=== PATIENT | male | born 1935 | race Caucasian/White ===

== ENCOUNTER 2017-05-29 08:54 | Inpatient (IN) | payer MEDICARE, OTHER ==
[~2017-05-29] VITALS: Ht 167.6 cm; Wt 105.2 kg
[~2017-05-29 08:54] MED LIST: ASPI-611 PO; ATOR10TA PO; DIGO250T77 PO; FURO40TA4 PO; HYDR-3972 PO; LEVO125T8 PO; LEVO750T21 PO; LINA5TAB4 PO; METO25TA6 PO; NITR0.4T48 SL; WARF-55 PO
[2017-05-29 09:54] LABS: BASOPHILS % (AUTO) 0.1 % (0-1); EOSINOPHILS # (AUTO) 0.2 X10'3 (0-0.9); EOSINOPHILS % (AUTO) 1.9 % (0-6); HEMOGLOBIN 13.6 g/dl (14.0-17.9); LYMPHOCYTES # (AUTO) 1.1 X10'3 (1.1-4.8); LYMPHOCYTES % (AUTO) 11.3 % (21-51); MEAN CORPUSCULAR HEMOGLOBIN 25.8 PG (27.0-31.0); MEAN CORPUSCULAR HGB CONC 32.4 % (33.0-36.5); MEAN CORPUSCULAR VOLUME 79.7 FL (78-98); MEAN PLATELET VOLUME 7.9 FL (7.4-10.4); MONOCYTES % (AUTO) 10.2 % (2-12); NEUTROPHILS # (AUTO) 7.3 X10'3 (1.8-7.7); NEUTROPHILS % (AUTO) 76.5 % (42-75); PLATELET COUNT 242 X10'3 (140-440); RED BLOOD COUNT 5.27 X10'6 (4.70-6.10); RED CELL DISTRIBUTION WIDTH 17.7 % (11.5-14.5); WHITE BLOOD COUNT 9.5 X10'3 (4.5-11.0)
[2017-05-29 10:08] LABS: INR 1.4 INR; PARTIAL THROMBOPLASTIN TIME 35 SECONDS (22-32); PROTHROMBIN TIME 14.5 SECONDS (9.0-12.0)
[2017-05-29 10:12] LABS: ALANINE AMINOTRANSFERASE 40 U/L (12-78); ALBUMIN 2.9 G/DL (3.4-5.0); ALBUMIN/GLOBULIN RATIO 0.6 (1.1-1.5); ALKALINE PHOSPHATASE 124 IU/L (46-116); ANION GAP 9 (8-16); ASPARTATE AMINO TRANSFERASE 34 U/L (10-37); BILIRUBIN,TOTAL 0.8 MG/DL (0.1-1.0); BLOOD UREA NITROGEN 20 MG/DL (7-18); BUN/CREATININE RATIO 14.1 (5.4-32.0); CALCIUM 8.2 MG/DL (8.5-10.1); CHLORIDE 102 MMOL/L (99-107); CREATININE 1.42 MG/DL (0.60-1.10); GLUCOSE 120 MG/DL (70-104); POTASSIUM 4.4 MMOL/L (3.5-5.1); SODIUM 136 MMOL/L (135-145); TOTAL CARBON DIOXIDE 25.4 MMOL/L (24-32); TOTAL PROTEIN 7.6 G/DL (6.4-8.2); eGFR 48 ML/MIN
[2017-05-29] MEDS ORDERED: levoFLOXACIN-Levaquin 750MG/D5 150 ML IV STA (10:47)
[2017-05-29] MEDS ORDERED: normal saline 1000ml 1,000 ML IV ONE (10:50)
[2017-05-29 11:06] LABS: ANISOCYTOSIS 2+; PLATELET ESTIMATE NORMAL
[2017-05-29] MEDS ORDERED: COU2.5T PO ×2 (11:18)
[2017-05-29] MEDS ORDERED: SYN0.088T PO (11:18)
[2017-05-29] MEDS ORDERED: SAXA5TAB PO (11:18)
[2017-05-29] MEDS ORDERED: COU5T PO (11:18)
[2017-05-29] MEDS ORDERED: magnesium hydroxide 30ml (MOM) UD suspension PO PRN (12:50)
[2017-05-29] MEDS ORDERED: mag hydrox/Alum hydrox/simeth 30ml oral suspension PO PRN (12:50)
[2017-05-29] MEDS ORDERED: ondansetron/PF 4mg/2ml inj IV PRN (12:50)
[2017-05-29] MEDS ORDERED: dextrose ORAL solution 15 GM/59 ML bottle PO PRN ×2 (12:50)
[2017-05-29] MEDS ORDERED: glucagon, human recombinant 1mg kit SUBCUT PRN (12:50)
[2017-05-29] MEDS ORDERED: dextrose 50%-water 50ml dispensing syringe IV PRN ×2 (12:50)
[2017-05-29] MEDS ORDERED: MESSAGE TO PHARMACY PO ONE (12:50)
[2017-05-29] MEDS ORDERED: guaiFENesin/DM 10ml UD oral syrup PO PRN ×3 (12:50→17:05)
[2017-05-29] MEDS ORDERED: HYDROcodone/acetaminophen 5mg/325mg tablet PO PRN (12:50)
[2017-05-29] MEDS ORDERED: insulin Lispro (HumaLOG) vial - multi-dose SQ SCH (12:50)
[2017-05-29] MEDS ORDERED: acetaminophen 325mg tablet PO PRN ×2 (12:50)
[2017-05-29] MEDS ORDERED: HYDROcodone/acetaminophen 10/325mg tab PO PRN (14:30)
[2017-05-29] MEDS ORDERED: guaiFENesin/DM oral syrup 5 ML CUP PO PRN ×2 (17:18)
[2017-05-29] MEDS ORDERED: metoprolol tartrate 25mg tablet PO SCH (20:00)
[2017-05-29] MEDS ORDERED: warfarin 5mg tablet PO ONE (21:00)
[2017-05-29] MEDS: insulin glargine (Lantus) pen - multi-dose SQ SCH (21:00)
[2017-05-29] MEDS: linagliptin 5mg tablet PO SCH (21:00)
[2017-05-29] MEDS ORDERED: temazepam 15mg capsule PO PRN (21:00)
[2017-05-29] MEDS: atorvastatin 10mg tablet PO SCH (22:45)
[2017-05-30 06:33] LABS: INR 1.3 INR; PROTHROMBIN TIME 13.7 SECONDS (9.0-12.0)
[2017-05-30 06:38] LABS: HEMOGLOBIN A1C 7.2 % (4.5-6.2)
[2017-05-30 06:59] LABS: ALBUMIN 2.5 G/DL (3.4-5.0); ANION GAP 8 (8-16); BLOOD UREA NITROGEN 20 MG/DL (7-18); BUN/CREATININE RATIO 15.5 (5.4-32.0); CALCIUM 7.8 MG/DL (8.5-10.1); CHLORIDE 104 MMOL/L (99-107); CREATININE 1.29 MG/DL (0.60-1.10); GLUCOSE 99 MG/DL (70-104); SODIUM 138 MMOL/L (135-145); TOTAL CARBON DIOXIDE 25.7 MMOL/L (24-32); eGFR 54 ML/MIN
[2017-05-30 07:00] LABS: POTASSIUM 4.4 MMOL/L (3.5-5.1)
[2017-05-30 07:08] LABS: BASOPHILS % (AUTO) 0.4 % (0-1); EOSINOPHILS # (AUTO) 0.3 X10'3 (0-0.9); EOSINOPHILS % (AUTO) 4.6 % (0-6); HEMATOCRIT 39.7 % (42.0-52.0); LYMPHOCYTES # (AUTO) 1.1 X10'3 (1.1-4.8); LYMPHOCYTES % (AUTO) 16.6 % (21-51); MEAN CORPUSCULAR HEMOGLOBIN 26.3 PG (27.0-31.0); MEAN CORPUSCULAR HGB CONC 32.7 % (33.0-36.5); MEAN CORPUSCULAR VOLUME 80.5 FL (78-98); MEAN PLATELET VOLUME 7.7 FL (7.4-10.4); MONOCYTES # (AUTO) 0.9 X10'3 (0-0.9); MONOCYTES % (AUTO) 13.1 % (2-12); NEUTROPHILS # (AUTO) 4.4 X10'3 (1.8-7.7); NEUTROPHILS % (AUTO) 65.3 % (42-75); PLATELET COUNT 218 X10'3 (140-440); RED BLOOD COUNT 4.94 X10'6 (4.70-6.10); RED CELL DISTRIBUTION WIDTH 17.9 % (11.5-14.5); WHITE BLOOD COUNT 6.7 X10'3 (4.5-11.0)
[2017-05-30 07:40] VITALS: BP 163/58
[2017-05-30] MEDS ORDERED: levoTHYROXINE 88mcg tablet PO SCH (08:00)
[2017-05-30] MEDS: furosemide 40mg tablet PO SCH (08:53)
[2017-05-30] MEDS: aspirin 81mg tablet.DR PO SCH (08:53)
[2017-05-30] MEDS: digoxin 250mcg (0.25mg) tablet PO SCH (08:55)
[2017-05-30] MEDS: levoFLOXACIN-Levaquin 500mg/D5 100 ML IV SCH (09:01)
[2017-05-30 11:33] VITALS: BP_SYST 157; BP_SYST 167; BP_SYST 168; BP_DIAS 63; BP_DIAS 65; BP_DIAS 83
[2017-05-30] MEDS ORDERED: metoprolol tartrate 12.5mg (1/2 tablet) PO ONE ×2 (11:35→11:50)
[2017-05-30 14:42] VITALS: BP 155/64
[2017-05-30 18:00] VITALS: BP 156/65
[2017-05-30] MEDS ORDERED: warfarin 5mg tablet PO ONE (21:00)
[2017-05-30] MEDS: insulin glargine (Lantus) pen - multi-dose SQ SCH (21:00)
[2017-05-30] MEDS: lactobacillus rhamnosus 10,000 MMU CELLS/CAPSULE PO SCH (21:33)
[2017-05-30] MEDS: pantoprazole 40 MG vial IV SCH (21:33)
[2017-05-30] MEDS: atorvastatin 10mg tablet PO SCH (21:33)
[2017-05-30] MEDS: metoprolol tartrate 12.5mg (1/2 tablet) PO SCH (21:33)
[2017-05-30] MEDS: linagliptin 5mg tablet PO SCH (21:33)
[2017-05-30 22:00] VITALS: BP 174/66
[2017-05-31 06:00] VITALS: BP 169/76
[2017-05-31 06:02] LABS: BASOPHILS % (AUTO) 0.4 % (0-1); EOSINOPHILS # (AUTO) 0.4 X10'3 (0-0.9); HEMATOCRIT 42.1 % (42.0-52.0); HEMOGLOBIN 13.7 g/dl (14.0-17.9); LYMPHOCYTES # (AUTO) 1.3 X10'3 (1.1-4.8); LYMPHOCYTES % (AUTO) 18.1 % (21-51); MEAN CORPUSCULAR HEMOGLOBIN 26.2 PG (27.0-31.0); MEAN CORPUSCULAR HGB CONC 32.5 % (33.0-36.5); MEAN CORPUSCULAR VOLUME 80.5 FL (78-98); MONOCYTES # (AUTO) 0.8 X10'3 (0-0.9); MONOCYTES % (AUTO) 11.4 % (2-12); NEUTROPHILS # (AUTO) 4.5 X10'3 (1.8-7.7); NEUTROPHILS % (AUTO) 64.1 % (42-75); PLATELET COUNT 258 X10'3 (140-440); RED BLOOD COUNT 5.22 X10'6 (4.70-6.10); RED CELL DISTRIBUTION WIDTH 17.3 % (11.5-14.5); WHITE BLOOD COUNT 7.1 X10'3 (4.5-11.0)
[2017-05-31 06:11] LABS: INR 1.7 INR; PROTHROMBIN TIME 16.8 SECONDS (9.0-12.0)
[2017-05-31 06:27] LABS: ALBUMIN 2.6 G/DL (3.4-5.0); ANION GAP 10 (8-16); BLOOD UREA NITROGEN 21 MG/DL (7-18); BUN/CREATININE RATIO 17.1 (5.4-32.0); CALCIUM 8.2 MG/DL (8.5-10.1); CHLORIDE 104 MMOL/L (99-107); CREATININE 1.23 MG/DL (0.60-1.10); GLUCOSE 95 MG/DL (70-104); SODIUM 142 MMOL/L (135-145); eGFR 57 ML/MIN
[2017-05-31] MEDS: lactobacillus rhamnosus 10,000 MMU CELLS/CAPSULE PO SCH ×2 (07:26→20:28)
[2017-05-31] MEDS: furosemide 40mg tablet PO SCH (07:27)
[2017-05-31] MEDS: digoxin 250mcg (0.25mg) tablet PO SCH (07:27)
[2017-05-31] MEDS: aspirin 81mg tablet.DR PO SCH (07:27)
[2017-05-31] MEDS: levoTHYROXINE 125mcg tablet PO SCH (07:27)
[2017-05-31] MEDS: metoprolol tartrate 12.5mg (1/2 tablet) PO SCH ×2 (07:28→20:28)
[2017-05-31] MEDS: pantoprazole 40 MG vial IV SCH (07:28)
[2017-05-31] MEDS: levoFLOXACIN-Levaquin 500mg/D5 100 ML IV SCH (07:28)
[2017-05-31 10:00] VITALS: BP 93/97
[2017-05-31 17:00] VITALS: BP_SYST 147; BP_SYST 152; BP_SYST 157; BP_DIAS 54; BP_DIAS 63; BP_DIAS 70
[2017-05-31 18:00] VITALS: BP 147/54
[2017-05-31 20:00] VITALS: BP_SYST 144; BP_SYST 149; BP_SYST 156; BP_DIAS 59; BP_DIAS 60; BP_DIAS 68
[2017-05-31] MEDS: atorvastatin 10mg tablet PO SCH (20:29)
[2017-05-31] MEDS: linagliptin 5mg tablet PO SCH (20:29)
[2017-05-31] MEDS: insulin glargine (Lantus) pen - multi-dose SQ SCH (20:30)
[2017-05-31] MEDS ORDERED: warfarin 3mg tablet PO ONE (21:00)
[2017-05-31 22:00] VITALS: BP 149/59
[2017-06-01 05:25] LABS: BASOPHILS % (AUTO) 0.5 % (0-1); EOSINOPHILS # (AUTO) 0.3 X10'3 (0-0.9); EOSINOPHILS % (AUTO) 4.1 % (0-6); HEMATOCRIT 41.9 % (42.0-52.0); HEMOGLOBIN 13.7 g/dl (14.0-17.9); LYMPHOCYTES # (AUTO) 1.3 X10'3 (1.1-4.8); LYMPHOCYTES % (AUTO) 16.7 % (21-51); MEAN CORPUSCULAR HGB CONC 32.7 % (33.0-36.5); MEAN CORPUSCULAR VOLUME 79.6 FL (78-98); MEAN PLATELET VOLUME 7.6 FL (7.4-10.4); MONOCYTES # (AUTO) 0.9 X10'3 (0-0.9); MONOCYTES % (AUTO) 11.8 % (2-12); NEUTROPHILS # (AUTO) 5.2 X10'3 (1.8-7.7); NEUTROPHILS % (AUTO) 66.9 % (42-75); PLATELET COUNT 278 X10'3 (140-440); RED BLOOD COUNT 5.27 X10'6 (4.70-6.10); WHITE BLOOD COUNT 7.8 X10'3 (4.5-11.0)
[2017-06-01 05:44] LABS: INR 2.6 INR
[2017-06-01 05:52] LABS: ALBUMIN 2.6 G/DL (3.4-5.0); ANION GAP 9 (8-16); BLOOD UREA NITROGEN 26 MG/DL (7-18); CALCIUM 8.3 MG/DL (8.5-10.1); CHLORIDE 104 MMOL/L (99-107); CREATININE 1.37 MG/DL (0.60-1.10); GLUCOSE 104 MG/DL (70-104); POTASSIUM 4.1 MMOL/L (3.5-5.1); SODIUM 140 MMOL/L (135-145); TOTAL CARBON DIOXIDE 27.2 MMOL/L (24-32); eGFR 50 ML/MIN
[2017-06-01 06:00] VITALS: BP 164/71
[2017-06-01] MEDS: lactobacillus rhamnosus 10,000 MMU CELLS/CAPSULE PO SCH ×2 (07:12→21:12)
[2017-06-01] MEDS: pantoprazole 40mg Tablet.DR PO SCH (07:12)
[2017-06-01] MEDS: levoTHYROXINE 125mcg tablet PO SCH (07:13)
[2017-06-01] MEDS: aspirin 81mg tablet.DR PO SCH (07:13)
[2017-06-01] MEDS: digoxin 250mcg (0.25mg) tablet PO SCH (07:14)
[2017-06-01] MEDS: metoprolol tartrate 12.5mg (1/2 tablet) PO SCH ×2 (07:15→21:12)
[2017-06-01] MEDS: furosemide 40mg tablet PO SCH (07:15)
[2017-06-01 08:00] VITALS: BP_SYST 136; BP_SYST 146; BP_SYST 161; BP_DIAS 62; BP_DIAS 69; BP_DIAS 85
[2017-06-01 10:00] VITALS: BP 114/49
[2017-06-01] MEDS ORDERED: levoFLOXACIN 500mg tablet PO SCH (11:00)
[2017-06-01 18:00] VITALS: BP 146/53
[2017-06-01 20:00] VITALS: BP_SYST 131; BP_SYST 153; BP_SYST 171; BP_DIAS 131; BP_DIAS 62; BP_DIAS 67
[2017-06-01] MEDS: insulin glargine (Lantus) pen - multi-dose SQ SCH (21:00)
[2017-06-01] MEDS: atorvastatin 10mg tablet PO SCH (21:12)
[2017-06-01] MEDS: linagliptin 5mg tablet PO SCH (21:12)
[2017-06-01 22:00] VITALS: BP 153/67
[2017-06-02 06:00] VITALS: BP 162/63
[2017-06-02 06:24] LABS: ALBUMIN 2.8 G/DL (3.4-5.0); ANION GAP 7 (8-16); BLOOD UREA NITROGEN 23 MG/DL (7-18); BUN/CREATININE RATIO 16.9 (5.4-32.0); CHLORIDE 103 MMOL/L (99-107); CREATININE 1.36 MG/DL (0.60-1.10); GLUCOSE 99 MG/DL (70-104); SODIUM 140 MMOL/L (135-145); TOTAL CARBON DIOXIDE 29.9 MMOL/L (24-32); eGFR 51 ML/MIN
[2017-06-02 06:25] LABS: BASOPHILS % (AUTO) 0.6 % (0-1); EOSINOPHILS # (AUTO) 0.3 X10'3 (0-0.9); EOSINOPHILS % (AUTO) 3.5 % (0-6); HEMATOCRIT 44.6 % (42.0-52.0); HEMOGLOBIN 14.2 g/dl (14.0-17.9); LYMPHOCYTES # (AUTO) 1.3 X10'3 (1.1-4.8); LYMPHOCYTES % (AUTO) 17.1 % (21-51); MEAN CORPUSCULAR HEMOGLOBIN 25.4 PG (27.0-31.0); MEAN CORPUSCULAR HGB CONC 31.9 % (33.0-36.5); MEAN CORPUSCULAR VOLUME 79.8 FL (78-98); MEAN PLATELET VOLUME 7.9 FL (7.4-10.4); MONOCYTES # (AUTO) 0.8 X10'3 (0-0.9); MONOCYTES % (AUTO) 10.8 % (2-12); NEUTROPHILS # (AUTO) 5.2 X10'3 (1.8-7.7); PLATELET COUNT 348 X10'3 (140-440); RED BLOOD COUNT 5.59 X10'6 (4.70-6.10); RED CELL DISTRIBUTION WIDTH 17.1 % (11.5-14.5); WHITE BLOOD COUNT 7.7 X10'3 (4.5-11.0)
[2017-06-02 06:29] LABS: INR 2.9 INR; PROTHROMBIN TIME 28.6 SECONDS (9.0-12.0)
[2017-06-02] MEDS: furosemide 40mg tablet PO SCH (07:45)
[2017-06-02] MEDS: lactobacillus rhamnosus 10,000 MMU CELLS/CAPSULE PO SCH (07:45)
[2017-06-02] MEDS: metoprolol tartrate 12.5mg (1/2 tablet) PO SCH (07:45)
[2017-06-02] MEDS: digoxin 250mcg (0.25mg) tablet PO SCH (07:45)
[2017-06-02] MEDS: aspirin 81mg tablet.DR PO SCH (07:45)
[2017-06-02] MEDS: pantoprazole 40mg Tablet.DR PO SCH (07:46)
[2017-06-02] MEDS: levoTHYROXINE 125mcg tablet PO SCH (07:46)
[2017-06-02] MEDS ORDERED: LEVO500T2 PO (10:44)
== END 2017-06-02 12:00 | disposition home or self-care (01) | DRG 194 ==
LOC: ER 08:55 → ED HOLD 12:48 → ORTHO 4S 05-30 07:40
PROVIDERS: ADMIT Family Medicine; ATTEND Family Medicine
DX: J18.9 Pneumonia, unspecified organism (principal); E44.1 Mild protein-calorie malnutrition; E11.22 Type 2 diabetes mellitus with diabetic chronic kidney disease; E11.51 Type 2 diabetes mellitus with diabetic peripheral angiopathy without gangrene; I48.2 Chronic atrial fibrillation; N18.9 Chronic kidney disease, unspecified; M19.90 Unspecified osteoarthritis, unspecified site; E03.9 Hypothyroidism, unspecified; E78.5 Hyperlipidemia, unspecified; I25.10 Atherosclerotic heart disease of native coronary artery without angina pectoris; Z96.652 Presence of left artificial knee joint; Z95.1 Presence of aortocoronary bypass graft; Z79.01 Long term (current) use of anticoagulants; Z79.82 Long term (current) use of aspirin; Z79.899 Other long term (current) drug therapy; Z82.49 Family history of ischemic heart disease and other diseases of the circulatory system; Z83.3 Family history of diabetes mellitus; Z68.37 Body mass index [BMI] 37.0-37.9, adult
CPT/HCPCS: 36415; 71045; 80048; 80053; 82948; 83036; 83605; 84443; 84484; 85025; 85610; 85730; 87040; 87070; 94668; 94760; 96365; 97116; 97161; 97530; 99285; C9113; J1815; J1956; J7030

== ENCOUNTER 2017-12-11 07:29 | Day surgery (SDC) | payer MEDICARE, OTHER ==
[~2017-12-11] VITALS: Ht 165.1 cm; Wt 111.6 kg
[~2017-12-11 07:29] MED LIST changes: +COU2.5T PO; +COU5T PO; -FURO40TA4 PO; -HYDR-3972 PO; -LEVO125T8 PO; -LEVO750T21 PO; +SAXA5TAB PO; +SYN0.088T PO; -WARF-55 PO
[2017-12-11] MEDS ORDERED: LIDOcaine 1% (10mg/ml)w/preservative injection 20ml MDV SQ ONE ×2 (08:00→09:00)
[2017-12-11] MEDS ORDERED: FURO-150 PO (08:06)
[2017-12-11] MEDS ORDERED: NITR0.4T51 SL (08:06)
[2017-12-11] MEDS ORDERED: HYDR-4353 PO (08:06)
[2017-12-11] MEDS ORDERED: LISI10TA4 PO (08:06)
[2017-12-11 08:08] VITALS: BP 177/78
[2017-12-11 08:48] VITALS: BP 181/65
[2017-12-11 08:53] VITALS: BP 181/65
[2017-12-11 09:08] VITALS: BP 172/60
[2017-12-11 09:19] VITALS: BP 157/73
[2017-12-11 12:27] LABS: LDH,BODY FLUID 116 U/L; TOTAL PROTEIN,BODY FLUID 3.3 G/DL
[2017-12-11 13:19] LABS: EOSINOPHILS,BODY FLUID 1 %; LYMPHOCYTES,BODY FLUID 94 %; MONOCYTES,BODY FLUID 1 %; NEUTROPHILS,BODY FLUID 4 %
[2017-12-11 13:20] LABS: BFAPPEAR CLOUDY
[2017-12-11 13:21] LABS: BF RBC COUNT 35500 /CU MM; BF WBC COUNT 1050 /CU MM (0-1000); BFCOLOR AMBER; BFVOLUME 1300 ML
== END 2017-12-11 09:40 | disposition home or self-care (01) ==
LOC: SSTAY O 07:29
PROVIDERS: ATTEND Internal Medicine Pulmonary Disease
DX: J90 Pleural effusion, not elsewhere classified (principal); I25.810 Atherosclerosis of coronary artery bypass graft(s) without angina pectoris; I48.2 Chronic atrial fibrillation; I50.9 Heart failure, unspecified; E66.3 Overweight; E11.42 Type 2 diabetes mellitus with diabetic polyneuropathy; E78.5 Hyperlipidemia, unspecified; N40.0 Benign prostatic hyperplasia without lower urinary tract symptoms; M19.90 Unspecified osteoarthritis, unspecified site; E11.22 Type 2 diabetes mellitus with diabetic chronic kidney disease; N18.9 Chronic kidney disease, unspecified; Z86.79 Personal history of other diseases of the circulatory system; Z95.1 Presence of aortocoronary bypass graft; Z87.891 Personal history of nicotine dependence; Z87.01 Personal history of pneumonia (recurrent); Z79.01 Long term (current) use of anticoagulants; Z68.41 Body mass index [BMI] 40.0-44.9, adult; Z96.652 Presence of left artificial knee joint; Z90.49 Acquired absence of other specified parts of digestive tract; Z79.82 Long term (current) use of aspirin; Z79.891 Long term (current) use of opiate analgesic; Z79.899 Other long term (current) drug therapy; Z98.890 Other specified postprocedural states; Z83.6 Family history of other diseases of the respiratory system; Z83.3 Family history of diabetes mellitus; Z82.49 Family history of ischemic heart disease and other diseases of the circulatory system
CPT/HCPCS: 32555; 71045; 83615; 84157; 87070; 88108; 88305; 88341; 88342; 89051

== ENCOUNTER 2018-01-24 12:57 | Outpatient (CLI) | payer MEDICARE, OTHER ==
[~2018-01-24 12:57] MED LIST changes: -COU2.5T PO; +FURO-150 PO; +HYDR-4353 PO; +LISI10TA4 PO; +NITR0.4T51 SL; -SAXA5TAB PO
== END 2018-01-24 23:59 | disposition home or self-care (01) ==
LOC: CARD DIAG 12:57
PROVIDERS: ATTEND Internal Medicine Cardiovascular Disease
DX: I08.3 Combined rheumatic disorders of mitral, aortic and tricuspid valves (principal); R06.02 Shortness of breath; I48.91 Unspecified atrial fibrillation; R06.00 Dyspnea, unspecified; I10 Essential (primary) hypertension; E11.9 Type 2 diabetes mellitus without complications; Z79.82 Long term (current) use of aspirin; Z79.899 Other long term (current) drug therapy; Z87.891 Personal history of nicotine dependence
CPT/HCPCS: 93306

== ENCOUNTER 2018-01-27 10:47 | Inpatient (IN) | payer MEDICARE, OTHER ==
[~2018-01-27] VITALS: Ht 167.6 cm; Wt 110.0 kg
[2018-01-27] MEDS ORDERED: SAXA5TAB PO (12:33)
[2018-01-27] MEDS ORDERED: LEVO125T PO (12:37)
[2018-01-27 12:48] VITALS: BP 146/76
[2018-01-27] MEDS ORDERED: FURO-149 PO (13:27)
[2018-01-27] MEDS ORDERED: WARF-55 PO (13:32)
[2018-01-27 13:43] LABS: BASOPHILS # (AUTO) 0.1 X10'3 (0-0.2); BASOPHILS % (AUTO) 0.7 % (0-1); EOSINOPHILS # (AUTO) 0.3 X10'3 (0-0.9); EOSINOPHILS % (AUTO) 3.1 % (0-6); HEMATOCRIT 40.2 % (42.0-52.0); HEMOGLOBIN 12.6 g/dl (14.0-17.9); LYMPHOCYTES # (AUTO) 1.5 X10'3 (1.1-4.8); LYMPHOCYTES % (AUTO) 16.5 % (21-51); MEAN CORPUSCULAR HEMOGLOBIN 25.7 PG (27.0-31.0); MEAN CORPUSCULAR HGB CONC 31.2 % (33.0-36.5); MEAN CORPUSCULAR VOLUME 82.3 FL (78-98); MEAN PLATELET VOLUME 8.1 FL (7.4-10.4); MONOCYTES # (AUTO) 0.8 X10'3 (0-0.9); MONOCYTES % (AUTO) 8.4 % (2-12); NEUTROPHILS # (AUTO) 6.7 X10'3 (1.8-7.7); NEUTROPHILS % (AUTO) 71.3 % (42-75); PLATELET COUNT 309 X10'3 (140-440); RED BLOOD COUNT 4.89 X10'6 (4.70-6.10); RED CELL DISTRIBUTION WIDTH 17.3 % (11.5-14.5); WHITE BLOOD COUNT 9.4 X10'3 (4.5-11.0)
[2018-01-27 13:53] LABS: ALBUMIN 2.9 G/DL (3.4-5.0); ANION GAP 8 (8-16); BLOOD UREA NITROGEN 23 MG/DL (7-18); BUN/CREATININE RATIO 15.1 (5.4-32.0); CALCIUM 8.5 MG/DL (8.5-10.1); CHLORIDE 102 MMOL/L (99-107); CREATININE 1.52 MG/DL (0.60-1.10); GLUCOSE 142 MG/DL (70-104); POTASSIUM 4.2 MMOL/L (3.5-5.1); SODIUM 138 MMOL/L (135-145); TOTAL CARBON DIOXIDE 27.8 MMOL/L (24-32); eGFR 44 ML/MIN
[2018-01-27 13:54] LABS: INR 2.4 INR; PARTIAL THROMBOPLASTIN TIME 41 SECONDS (22-32); PROTHROMBIN TIME 23.7 SECONDS (9.0-12.0)
[2018-01-27] MEDS ORDERED: dextrose 50%-water 50ml dispensing syringe IV PRN ×2 (17:45)
[2018-01-27] MEDS ORDERED: dextrose ORAL solution 15 GM/59 ML bottle PO PRN ×2 (17:45)
[2018-01-27] MEDS ORDERED: MESSAGE TO PHARMACY PO ONE (17:45)
[2018-01-27] MEDS ORDERED: insulin Lispro (HumaLOG) vial - multi-dose SQ SCH (17:45)
[2018-01-27] MEDS ORDERED: glucagon, human recombinant 1mg kit SUBCUT PRN (17:45)
[2018-01-27 17:50] LABS: CLARITY,URINE CLEAR (Clear); COLOR,URINE STRAW (Yellow); GLUCOSE, URINE NEGATIVE (Neg); KETONES,URINE NEGATIVE (Neg); LEUKOCYTE ESTERASE ,URINE TRACE (Neg); NITRITES, URINE NEGATIVE (Neg); OCCULT BLOOD,URINE SMALL (Neg); PROTEIN,URINE 30 mg/dl (Neg); UROBILINOGEN,URINE 0.2 E.U/dL (0.2-1.0)
[2018-01-27 17:54] LABS: UA COLLECTION TYPE NON-SPECIFIED
[2018-01-27 18:04] LABS: MUCUS STRANDS NONE SEEN /LPF (Neg); SQUAMOUS EPITHELIAL CELL,UR FEW /LPF (FEW)
[2018-01-27 18:05] LABS: BACTERIA,URINE 1+ /HPF (Neg); WBC,URINE 0-4 /HPF (0-4)
[2018-01-27 18:16] LABS: HEMOGLOBIN A1C 8.3 % (4.5-6.2)
[2018-01-27] MEDS ORDERED: nitroGLYCERIN 0.4mg SUBLingual tab SL PRN (18:20)
[2018-01-27 18:40] VITALS: BP 174/61
[2018-01-27] MEDS: atorvastatin 10mg tablet PO SCH (20:18)
[2018-01-27] MEDS: metoprolol tartrate 12.5mg (1/2 tablet) PO SCH (20:18)
[2018-01-27] MEDS: insulin glargine (Lantus) pen - multi-dose SQ SCH (21:00)
[2018-01-27 23:00] VITALS: BP 143/49
[2018-01-28] VITALS (15 sets, daily range): BP systolic 142–187; BP diastolic 43–75
[2018-01-28] MEDS: aspirin 81mg tablet.DR PO SCH (07:21)
[2018-01-28] MEDS: metoprolol tartrate 12.5mg (1/2 tablet) PO SCH ×2 (07:22→20:23)
[2018-01-28] MEDS: digoxin 250mcg (0.25mg) tablet PO SCH (07:22)
[2018-01-28] MEDS: furosemide 40mg tablet PO SCH (07:50)
[2018-01-28] MEDS: levoTHYROXINE 125mcg tablet PO SCH (07:50)
[2018-01-28] MEDS: linagliptin 5mg tablet PO SCH (07:51)
[2018-01-28 08:48] LABS: INR 2.1 INR; PROTHROMBIN TIME 20.3 SECONDS (9.0-12.0)
[2018-01-28] MEDS ORDERED: LIDOcaine 1%/PF 5ML 10 MG/ML VIAL ONE (11:34)
[2018-01-28] MEDS ORDERED: NORMAL SALINE IV ONE (11:40)
[2018-01-28] MEDS ORDERED: ALTEPLASE IV ONE (11:40)
[2018-01-28 11:49] LABS: INR 1.6 INR; PROTHROMBIN TIME 16.2 SECONDS (9.0-12.0)
[2018-01-28 13:03] LABS: GLUCOSE,BODY FLUID 134 MG/DL; LDH,BODY FLUID 127 U/L
[2018-01-28 13:37] LABS: BF RBC COUNT 5100 /CU MM; BF WBC COUNT 955 /CU MM (0-1000); BFAPPEAR CLOUDY; BFCOLOR AMBER; BFVOLUME 60 ML; LYMPHOCYTES,BODY FLUID 91 %; NEUTROPHILS,BODY FLUID 3 %
[2018-01-28 13:38] LABS: MONOCYTES,BODY FLUID 6 %
[2018-01-28] MEDS: atorvastatin 10mg tablet PO SCH (20:23)
[2018-01-28] MEDS: insulin glargine (Lantus) pen - multi-dose SQ SCH (21:00)
[2018-01-28] MEDS ORDERED: HYDROcodone/acetaminophen 10/325mg tab PO PRN (21:00)
[2018-01-29 04:00] VITALS: BP 150/50
[2018-01-29 07:04] VITALS: BP 156/49
[2018-01-29] MEDS: digoxin 250mcg (0.25mg) tablet PO SCH (08:00)
[2018-01-29] MEDS: levoTHYROXINE 125mcg tablet PO SCH (09:12)
[2018-01-29] MEDS: aspirin 81mg tablet.DR PO SCH (09:12)
[2018-01-29] MEDS: linagliptin 5mg tablet PO SCH (09:13)
[2018-01-29] MEDS: metoprolol tartrate 12.5mg (1/2 tablet) PO SCH ×2 (09:13→20:20)
[2018-01-29] MEDS: furosemide 40mg tablet PO SCH (09:17)
[2018-01-29] MEDS ORDERED: TPA CATHFLO ICATH ONE (11:00)
[2018-01-29] MEDS ORDERED: NORMAL SALINE ICATH ONE (11:00)
[2018-01-29] MEDS ORDERED: FLUSH 10 MG ICATH ONE (11:00)
[2018-01-29 11:40] VITALS: BP 134/49
[2018-01-29 20:02] VITALS: BP_SYST 137; BP_DIAS 38; BP_DIAS 47
[2018-01-29] MEDS: atorvastatin 10mg tablet PO SCH (20:20)
[2018-01-29] MEDS: insulin glargine (Lantus) pen - multi-dose SQ SCH (21:00)
[2018-01-29 23:45] VITALS: BP 145/52
[2018-01-30 07:12] VITALS: BP 102/64
[2018-01-30 08:00] VITALS: BP 110/47
[2018-01-30] MEDS: levoTHYROXINE 125mcg tablet PO SCH (08:13)
[2018-01-30] MEDS: metoprolol tartrate 12.5mg (1/2 tablet) PO SCH ×2 (08:14→20:37)
[2018-01-30] MEDS: linagliptin 5mg tablet PO SCH (08:14)
[2018-01-30] MEDS: furosemide 40mg tablet PO SCH (08:15)
[2018-01-30] MEDS: aspirin 81mg tablet.DR PO SCH (08:15)
[2018-01-30] MEDS: digoxin 250mcg (0.25mg) tablet PO SCH (08:16)
[2018-01-30 11:00] VITALS: BP 135/53
[2018-01-30 11:58] VITALS: BP 121/58
[2018-01-30] MEDS ORDERED: cefazolin/dext.iso 2gm/50ml 50 ML IV ONE (17:35)
[2018-01-30 20:00] VITALS: BP 146/73
[2018-01-30] MEDS: atorvastatin 10mg tablet PO SCH (20:36)
[2018-01-30] MEDS: insulin glargine (Lantus) pen - multi-dose SQ SCH (20:42)
[2018-01-31] VITALS: BP 162/56
[2018-01-31 05:36] VITALS: BP 158/56
[2018-01-31 06:02] LABS: BASOPHILS # (AUTO) 0.1 X10'3 (0-0.2); BASOPHILS % (AUTO) 0.5 % (0-1); EOSINOPHILS # (AUTO) 0.6 X10'3 (0-0.9); EOSINOPHILS % (AUTO) 5.5 % (0-6); LYMPHOCYTES # (AUTO) 1.6 X10'3 (1.1-4.8); LYMPHOCYTES % (AUTO) 14.2 % (21-51); MEAN CORPUSCULAR HGB CONC 31.4 % (33.0-36.5); MEAN CORPUSCULAR VOLUME 82.9 FL (78-98); MEAN PLATELET VOLUME 8.4 FL (7.4-10.4); MONOCYTES % (AUTO) 9.3 % (2-12); NEUTROPHILS # (AUTO) 7.8 X10'3 (1.8-7.7); NEUTROPHILS % (AUTO) 70.5 % (42-75); PRE OP HEMATOCRIT 44.2 % (42.0-52.0); PRE OP HEMOGLOBIN 13.9 g/dL (14.0-17.9); PRE OP PLATELET COUNT 332 X10'3 (140-440); RED BLOOD COUNT 5.34 X10'6 (4.70-6.10); RED CELL DISTRIBUTION WIDTH 17.3 % (11.5-14.5)
[2018-01-31 06:16] LABS: PRE OP INR 1.2 INR; PRE OP PROTIME 11.7 SECONDS (9.0-12.0)
[2018-01-31 06:53] LABS: ALBUMIN 2.8 G/DL (3.4-5.0); ALBUMIN/GLOBULIN RATIO 0.6 (1.1-1.5); ALKALINE PHOSPHATASE 113 IU/L (46-116); BLOOD UREA NITROGEN 33 MG/DL (7-18); BUN/CREATININE RATIO 19.8 (5.4-32.0); CALCIUM 8.4 MG/DL (8.5-10.1); CHLORIDE 101 MMOL/L (99-107); CREATININE 1.67 MG/DL (0.60-1.10); PRE OP ALT 28 U/L (30-65); PRE OP ANION GAP 9 (8-16); PRE OP AST 20 U/L (10-37); PRE OP GLUCOSE 119 MG/DL (70-104); PRE OP POTASSIUM 3.8 MMOL/L (3.4-5.1); PRE OP SODIUM 138 MMOL/L (135-145); TOTAL CARBON DIOXIDE 28.2 MMOL/L (24-32); TOTAL PROTEIN 7.5 G/DL (6.4-8.2); eGFR 40 ML/MIN
[2018-01-31] MEDS: furosemide 40mg tablet PO SCH (07:45)
[2018-01-31] MEDS: digoxin 250mcg (0.25mg) tablet PO SCH (07:45)
[2018-01-31] MEDS: levoTHYROXINE 125mcg tablet PO SCH (07:45)
[2018-01-31] MEDS: metoprolol tartrate 12.5mg (1/2 tablet) PO SCH ×2 (07:45→20:38)
[2018-01-31] MEDS: linagliptin 5mg tablet PO SCH (07:45)
[2018-01-31 08:00] VITALS: BP 142/58
[2018-01-31] MEDS: aspirin 81mg tablet.DR PO SCH (08:09)
[2018-01-31 10:28] VITALS: BP 142/58
[2018-01-31 12:00] VITALS: BP 140/49
[2018-01-31 19:00] VITALS: BP 139/42
[2018-01-31] MEDS: insulin glargine (Lantus) pen - multi-dose SQ SCH (20:38)
[2018-01-31] MEDS: atorvastatin 10mg tablet PO SCH (20:38)
[2018-02-01] VITALS (17 sets, daily range): BP systolic 95–184; BP diastolic 42–76
[2018-02-01 05:07] LABS: BASOPHILS # (AUTO) 0.1 X10'3 (0-0.2); BASOPHILS % (AUTO) 0.9 % (0-1); EOSINOPHILS # (AUTO) 0.6 X10'3 (0-0.9); EOSINOPHILS % (AUTO) 6.5 % (0-6); HEMATOCRIT 45.6 % (42.0-52.0); HEMOGLOBIN 14.4 g/dl (14.0-17.9); LYMPHOCYTES # (AUTO) 1.4 X10'3 (1.1-4.8); LYMPHOCYTES % (AUTO) 14.9 % (21-51); MEAN CORPUSCULAR HEMOGLOBIN 26.1 PG (27.0-31.0); MEAN CORPUSCULAR HGB CONC 31.6 % (33.0-36.5); MEAN CORPUSCULAR VOLUME 82.6 FL (78-98); MEAN PLATELET VOLUME 8.4 FL (7.4-10.4); MONOCYTES # (AUTO) 0.9 X10'3 (0-0.9); MONOCYTES % (AUTO) 9.4 % (2-12); NEUTROPHILS # (AUTO) 6.5 X10'3 (1.8-7.7); NEUTROPHILS % (AUTO) 68.3 % (42-75); PLATELET COUNT 350 X10'3 (140-440); RED BLOOD COUNT 5.51 X10'6 (4.70-6.10); RED CELL DISTRIBUTION WIDTH 16.6 % (11.5-14.5); WHITE BLOOD COUNT 9.6 X10'3 (4.5-11.0)
[2018-02-01 05:21] LABS: INR 1.2 INR; PARTIAL THROMBOPLASTIN TIME 32 SECONDS (22-32); PROTHROMBIN TIME 11.6 SECONDS (9.0-12.0)
[2018-02-01 05:40] LABS: ALANINE AMINOTRANSFERASE 25 U/L (12-78); ALBUMIN 2.9 G/DL (3.4-5.0); ALBUMIN/GLOBULIN RATIO 0.6 (1.1-1.5); ALKALINE PHOSPHATASE 134 IU/L (46-116); ANION GAP 10 (8-16); ASPARTATE AMINO TRANSFERASE 26 U/L (10-37); BILIRUBIN,TOTAL 0.9 MG/DL (0.1-1.0); BLOOD UREA NITROGEN 35 MG/DL (7-18); BUN/CREATININE RATIO 22.6 (5.4-32.0); CALCIUM 8.8 MG/DL (8.5-10.1); CHLORIDE 101 MMOL/L (99-107); CREATININE 1.55 MG/DL (0.60-1.10); GLUCOSE 117 MG/DL (70-104); POTASSIUM 4.1 MMOL/L (3.5-5.1); SODIUM 138 MMOL/L (135-145); TOTAL CARBON DIOXIDE 27.5 MMOL/L (24-32); TOTAL PROTEIN 7.7 G/DL (6.4-8.2); eGFR 43 ML/MIN
[2018-02-01] MEDS: furosemide 40mg tablet PO SCH (07:27)
[2018-02-01] MEDS: digoxin 250mcg (0.25mg) tablet PO SCH (07:27)
[2018-02-01] MEDS: levoTHYROXINE 125mcg tablet PO SCH (07:27)
[2018-02-01] MEDS: metoprolol tartrate 12.5mg (1/2 tablet) PO SCH ×2 (07:27→20:00)
[2018-02-01] MEDS: linagliptin 5mg tablet PO SCH (07:27)
[2018-02-01] MEDS: aspirin 81mg tablet.DR PO SCH (07:28)
[2018-02-01] MEDS ORDERED: fentaNYL /PF 50mcg/ml 5ml ampule ONE (08:57)
[2018-02-01] MEDS ORDERED: rocuronium 10mg/ml inj IV ONE ×2 (09:10→10:45)
[2018-02-01] MEDS ORDERED: sevoflurane 250ml liquid IH ONE (09:10)
[2018-02-01] MEDS ORDERED: ePHEDrine 50MG/ML INJ. ONE (09:10)
[2018-02-01] MEDS ORDERED: midazolam 2 mg/2 ml injection ONE (09:14)
[2018-02-01] MEDS ORDERED: LIDOcaine 2% (20mg/ml) 5ml vial ONE (10:45)
[2018-02-01] MEDS ORDERED: propofol inj 20 ML IV ONE (10:45)
[2018-02-01] MEDS ORDERED: morphine 10mg/ml inj. ONE (10:45)
[2018-02-01] MEDS ORDERED: FENTANYL-0.9 % NACL/PF 100 ML IV PRN (11:21)
[2018-02-01] MEDS ORDERED: labetalol 5mg/ml 20ml inj. IV ONE (11:39)
[2018-02-01] MEDS: midazolam 100mg in NS 100ml 100 ML IV PRN (12:13)
[2018-02-01] MEDS ORDERED: naloxone 0.4 mg/ml inj IV PRN (12:15)
[2018-02-01] MEDS ORDERED: albuterol 2.5 MG/3 ML nebule NEB PRN (12:15)
[2018-02-01] MEDS ORDERED: CADD PCA waste documentation MC PRN (12:15)
[2018-02-01] MEDS ORDERED: metoclopramide 5 mg/ml inj IV PRN (12:15)
[2018-02-01] MEDS ORDERED: HYDROcodone/acetaminophen 10/325mg tab PO PRN ×2 (12:15)
[2018-02-01] MEDS ORDERED: morphine 4 MG/ML inj SYRINge IV PRN ×2 (12:15)
[2018-02-01] MEDS ORDERED: ondansetron/PF 4mg/2ml inj IV PRN (12:15)
[2018-02-01 14:56] LABS: ABG HCO3 25.6 mmol/L (22.0-26.0); ABG OXYGEN SATURATION 99.2 % (95-98); ABG PCO2 (T) 39.6 mmHg (35.0-48.0); ABG PH (T) 7.425 (7.350-7.450); ABG PO2 (T) 388.8 mmHg (83-108); FCOHb 0.3 % (0.5-1.5); FMetHb 0.1 % (0.3-1.12); FO2Hb 98.8 % (94-100); MINUTE VOLUME 12 L/min; PATIENT TEMPERATURE 36.5; PEEP 5 cm H2O; RESPIRATORY RATE 16 b/min; RESPIRATORY RATE (OBSERVED) 28 b/min; TIDAL VOLUME 700 mL; TOTAL HEMOGLOBIN 14.5 G/dl (14.0-18.0)
[2018-02-01] MEDS ORDERED: nitroGLYCERIN-Tridil 50MG/D5W 250 ML IV PRN (15:10)
[2018-02-01] MEDS: ceFAZolin inj. 1,000 MG in dextrose 5%-water 50ml 50 ML IV SCH (16:20)
[2018-02-01] MEDS: insulin glargine (Lantus) pen - multi-dose SQ SCH (20:35)
[2018-02-01] MEDS: atorvastatin 10mg tablet PO SCH (20:35)
[2018-02-01] MEDS: sodium chloride 0.45% 1,000 ML IV SCH (20:35)
[2018-02-01] MEDS ORDERED: acetaminophen 120MG suppository, rectal RC PRN (20:45)
[2018-02-01] MEDS: acetaminophen 650mg rectal suppository RC PRN (21:41)
[2018-02-02] VITALS (23 sets, daily range): BP systolic 94–158; BP diastolic 43–86
[2018-02-02] MEDS: ceFAZolin inj. 1,000 MG in dextrose 5%-water 50ml 50 ML IV SCH (00:04)
[2018-02-02 02:26] LABS: ABG BASE EXCESS 1.4 mmol/L (-2.0-3.0); ABG HCO3 23.3 mmol/L (22.0-26.0); ABG OXYGEN SATURATION 97.7 % (95-98); ABG PCO2 (T) 29.6 mmHg (35.0-48.0); ABG PH (T) 7.515 (7.350-7.450); ABG PO2 (T) 103.5 mmHg (83-108); FCOHb 0.4 % (0.5-1.5); FMetHb 0.2 % (0.3-1.12); FO2Hb 97.1 % (94-100); MINUTE VOLUME 12 L/min; PATIENT TEMPERATURE 36.9; PEEP 5 cm H2O; RESPIRATORY RATE 16 b/min; RESPIRATORY RATE (OBSERVED) 16 b/min; TIDAL VOLUME 700 mL; TOTAL HEMOGLOBIN 14.2 G/dl (14.0-18.0)
[2018-02-02 03:10] LABS: ALBUMIN 2.3 G/DL (3.4-5.0); ANION GAP 13 (8-16); BLOOD UREA NITROGEN 33 MG/DL (7-18); BUN/CREATININE RATIO 21.4 (5.4-32.0); CALCIUM 7.9 MG/DL (8.5-10.1); CHLORIDE 103 MMOL/L (99-107); CREATININE 1.54 MG/DL (0.60-1.10); GLUCOSE 133 MG/DL (70-104); POTASSIUM 3.7 MMOL/L (3.5-5.1); SODIUM 138 MMOL/L (135-145); TOTAL CARBON DIOXIDE 22.5 MMOL/L (24-32); eGFR 44 ML/MIN
[2018-02-02 03:30] LABS: BASOPHILS % (AUTO) 0.1 % (0-1); EOSINOPHILS # (AUTO) 0.2 X10'3 (0-0.9); EOSINOPHILS % (AUTO) 1.5 % (0-6); HEMATOCRIT 42.2 % (42.0-52.0); HEMOGLOBIN 13.3 g/dl (14.0-17.9); LYMPHOCYTES # (AUTO) 1.2 X10'3 (1.1-4.8); LYMPHOCYTES % (AUTO) 9.2 % (21-51); MEAN CORPUSCULAR HEMOGLOBIN 25.8 PG (27.0-31.0); MEAN CORPUSCULAR HGB CONC 31.6 % (33.0-36.5); MEAN CORPUSCULAR VOLUME 81.7 FL (78-98); MEAN PLATELET VOLUME 8.7 FL (7.4-10.4); MONOCYTES % (AUTO) 7.8 % (2-12); NEUTROPHILS # (AUTO) 10.3 X10'3 (1.8-7.7); NEUTROPHILS % (AUTO) 81.4 % (42-75); PLATELET COUNT 333 X10'3 (140-440); RED BLOOD COUNT 5.16 X10'6 (4.70-6.10); RED CELL DISTRIBUTION WIDTH 16.8 % (11.5-14.5); WHITE BLOOD COUNT 12.6 X10'3 (4.5-11.0)
[2018-02-02] MEDS: midazolam 100mg in NS 100ml 100 ML IV PRN (04:57)
[2018-02-02] MEDS: sodium chloride 0.45% 1,000 ML IV SCH ×2 (05:14→14:46)
[2018-02-02] MEDS: levoTHYROXINE 125mcg tablet PO SCH (07:00)
[2018-02-02] MEDS: digoxin 250mcg (0.25mg) tablet PO SCH (08:00)
[2018-02-02] MEDS: metoprolol tartrate 12.5mg (1/2 tablet) PO SCH ×2 (08:00→21:54)
[2018-02-02] MEDS: furosemide 40mg tablet PO SCH (08:00)
[2018-02-02] MEDS: linagliptin 5mg tablet PO SCH (08:00)
[2018-02-02] MEDS: aspirin 81mg tablet.DR PO SCH (08:00)
[2018-02-02] MEDS ORDERED: HYDROmorphone/NS 1 mg/ml CADD 50 ML IV SCH (11:35)
[2018-02-02] MEDS: HYDROmorphone/NS 1 mg/ml CADD 50 ML IV SCH ×6 (12:31→23:00)
[2018-02-02] MEDS: mineral oil/petrolatum ophthal oint EACHEYE SCH ×2 (13:29→20:00)
[2018-02-02] MEDS: insulin glargine (Lantus) pen - multi-dose SQ SCH (21:00)
[2018-02-02] MEDS: atorvastatin 10mg tablet PO SCH (21:54)
[2018-02-03] VITALS (23 sets, daily range): BP systolic 100–142; BP diastolic 40–68
[2018-02-03] MEDS: sodium chloride 0.45% 1,000 ML IV SCH ×3 (00:58→21:15)
[2018-02-03] MEDS: HYDROmorphone/NS 1 mg/ml CADD 50 ML IV SCH ×12 (01:00→23:00)
[2018-02-03] MEDS: mineral oil/petrolatum ophthal oint EACHEYE SCH ×4 (02:00→20:00)
[2018-02-03] MEDS: acetaminophen 650mg rectal suppository RC PRN (05:58)
[2018-02-03] MEDS: levoTHYROXINE 125mcg tablet PO SCH (07:08)
[2018-02-03] MEDS: furosemide 40mg tablet PO SCH (08:46)
[2018-02-03] MEDS: digoxin 250mcg (0.25mg) tablet PO SCH (08:46)
[2018-02-03] MEDS: aspirin 81mg tablet.DR PO SCH (08:46)
[2018-02-03] MEDS: linagliptin 5mg tablet PO SCH (08:48)
[2018-02-03] MEDS: metoprolol tartrate 12.5mg (1/2 tablet) PO SCH ×2 (08:48→20:10)
[2018-02-03] MEDS ORDERED: acetaminophen 325mg tablet PO PRN (10:40)
[2018-02-03] MEDS ORDERED: ondansetron/PF 4mg/2ml inj IV PRN (12:50)
[2018-02-03] MEDS ORDERED: ondansetron/PF 4mg/2ml inj ONE (13:00)
[2018-02-03] MEDS: atorvastatin 10mg tablet PO SCH (20:10)
[2018-02-03] MEDS: docusate sod 100mg capsule PO SCH (20:10)
[2018-02-03] MEDS: insulin glargine (Lantus) pen - multi-dose SQ SCH (20:41)
[2018-02-04] VITALS (23 sets, daily range): BP systolic 106–144; BP diastolic 37–67
[2018-02-04] MEDS: HYDROmorphone/NS 1 mg/ml CADD 50 ML IV SCH ×12 (01:00→23:00)
[2018-02-04] MEDS: polyethylene glycol 3350 17gm powd pack PO PRN ×2 (04:14→20:11)
[2018-02-04 05:11] LABS: BASOPHILS % (AUTO) 0.1 % (0-1); EOSINOPHILS # (AUTO) 1.1 X10'3 (0-0.9); EOSINOPHILS % (AUTO) 9.1 % (0-6); HEMATOCRIT 38.3 % (42.0-52.0); HEMOGLOBIN 11.9 g/dl (14.0-17.9); LYMPHOCYTES # (AUTO) 1.1 X10'3 (1.1-4.8); LYMPHOCYTES % (AUTO) 9.3 % (21-51); MEAN CORPUSCULAR HEMOGLOBIN 25.9 PG (27.0-31.0); MEAN CORPUSCULAR HGB CONC 31.1 % (33.0-36.5); MEAN CORPUSCULAR VOLUME 83.1 FL (78-98); MEAN PLATELET VOLUME 8.4 FL (7.4-10.4); MONOCYTES # (AUTO) 1.2 X10'3 (0-0.9); MONOCYTES % (AUTO) 9.7 % (2-12); NEUTROPHILS # (AUTO) 8.5 X10'3 (1.8-7.7); NEUTROPHILS % (AUTO) 71.8 % (42-75); PLATELET COUNT 323 X10'3 (140-440); RED BLOOD COUNT 4.61 X10'6 (4.70-6.10); RED CELL DISTRIBUTION WIDTH 17.7 % (11.5-14.5); WHITE BLOOD COUNT 11.8 X10'3 (4.5-11.0)
[2018-02-04 05:50] LABS: ALBUMIN 2.1 G/DL (3.4-5.0); ANION GAP 6 (8-16); BLOOD UREA NITROGEN 25 MG/DL (7-18); BUN/CREATININE RATIO 16.7 (5.4-32.0); CALCIUM 8.1 MG/DL (8.5-10.1); CHLORIDE 102 MMOL/L (99-107); GLUCOSE 118 MG/DL (70-104); MAGNESIUM 2.1 MG/DL (1.5-2.4); PHOSPHORUS 2.8 MG/DL (2.3-4.5); POTASSIUM 4.1 MMOL/L (3.5-5.1); SODIUM 136 MMOL/L (135-145); TOTAL CARBON DIOXIDE 27.9 MMOL/L (24-32); eGFR 45 ML/MIN
[2018-02-04] MEDS: sodium chloride 0.45% 1,000 ML IV SCH ×2 (06:43→16:14)
[2018-02-04] MEDS: levoTHYROXINE 125mcg tablet PO SCH (07:18)
[2018-02-04] MEDS: docusate sod 100mg capsule PO SCH ×2 (07:18→20:11)
[2018-02-04] MEDS: aspirin 81mg tablet.DR PO SCH (07:18)
[2018-02-04] MEDS: linagliptin 5mg tablet PO SCH (07:18)
[2018-02-04] MEDS: furosemide 40mg tablet PO SCH (07:18)
[2018-02-04] MEDS: digoxin 250mcg (0.25mg) tablet PO SCH (07:19)
[2018-02-04] MEDS: metoprolol tartrate 12.5mg (1/2 tablet) PO SCH ×2 (07:19→20:11)
[2018-02-04] MEDS: atorvastatin 10mg tablet PO SCH (20:11)
[2018-02-04] MEDS: insulin glargine (Lantus) pen - multi-dose SQ SCH (21:00)
[2018-02-04] MEDS ORDERED: HYDROcodone/acetaminophen 10/325mg tab PO PRN (21:35)
[2018-02-05] VITALS (14 sets, daily range): BP systolic 100–159; BP diastolic 48–73
[2018-02-05] MEDS: HYDROmorphone/NS 1 mg/ml CADD 50 ML IV SCH ×6 (01:00→11:00)
[2018-02-05 05:30] LABS: INR 1.1 INR; PROTHROMBIN TIME 11.3 SECONDS (9.0-12.0)
[2018-02-05 05:35] LABS: HEMATOCRIT 34.9 % (42.0-52.0); HEMOGLOBIN 11.8 g/dl (14.0-17.9); RED BLOOD COUNT 4.28 X10'6 (4.70-6.10); WHITE BLOOD COUNT 10.1 X10'3 (4.5-11.0)
[2018-02-05 05:36] LABS: ANION GAP 7 (8-16); BASOPHILS # (AUTO) 0.1 X10'3 (0-0.2); BASOPHILS % (AUTO) 0.5 % (0-1); BLOOD UREA NITROGEN 26 MG/DL (7-18); BUN/CREATININE RATIO 18.2 (5.4-32.0); CALCIUM 8.1 MG/DL (8.5-10.1); CHLORIDE 102 MMOL/L (99-107); CREATININE 1.43 MG/DL (0.60-1.10); EOSINOPHILS # (AUTO) 0.9 X10'3 (0-0.9); EOSINOPHILS % (AUTO) 8.6 % (0-6); GLUCOSE 109 MG/DL (70-104); LYMPHOCYTES # (AUTO) 1.1 X10'3 (1.1-4.8); LYMPHOCYTES % (AUTO) 10.5 % (21-51); MEAN CORPUSCULAR HEMOGLOBIN 27.6 PG (27.0-31.0); MEAN CORPUSCULAR HGB CONC 33.8 % (33.0-36.5); MEAN CORPUSCULAR VOLUME 81.5 FL (78-98); MEAN PLATELET VOLUME 8.5 FL (7.4-10.4); MONOCYTES # (AUTO) 0.9 X10'3 (0-0.9); MONOCYTES % (AUTO) 9.4 % (2-12); NEUTROPHILS # (AUTO) 7.1 X10'3 (1.8-7.7); NEUTROPHILS % (AUTO) 71 % (42-75); PHOSPHORUS 2.6 MG/DL (2.3-4.5); PLATELET COUNT 303 X10'3 (140-440); POTASSIUM 3.7 MMOL/L (3.5-5.1); SODIUM 136 MMOL/L (135-145); TOTAL CARBON DIOXIDE 26.7 MMOL/L (24-32); eGFR 48 ML/MIN
[2018-02-05] MEDS: digoxin 250mcg (0.25mg) tablet PO SCH (07:40)
[2018-02-05] MEDS: docusate sod 100mg capsule PO SCH (07:40)
[2018-02-05] MEDS: metoprolol tartrate 12.5mg (1/2 tablet) PO SCH (07:40)
[2018-02-05] MEDS: aspirin 81mg tablet.DR PO SCH (07:40)
[2018-02-05] MEDS: levoTHYROXINE 125mcg tablet PO SCH (07:40)
[2018-02-05] MEDS: linagliptin 5mg tablet PO SCH (07:41)
[2018-02-05] MEDS: furosemide 40mg tablet PO SCH (07:41)
[2018-02-05] MEDS ORDERED: HYDR-4353 PO (11:42)
[2018-02-05] MEDS ORDERED: warfarin 5mg tablet PO ONE (11:59)
[2018-02-05] MEDS ORDERED: HYDROcodone/acetaminophen 10/325mg tab PO ONE (12:25)
[2018-02-05 20:42] LABS: RED CELL DISTRIBUTION WIDTH 15.9 % (11.5-14.5)
== END 2018-02-05 13:34 | disposition home health service (06) | DRG 164 ==
LOC: SUR 3N 11:49 → PACU 02-01 11:07 → CICU 2S 02-01 12:00
PROVIDERS: ADMIT Surgery; ATTEND Internal Medicine Critical Care Medicine
PROC: 0W9B30Z Drainage of Left Pleural Cavity with Drainage Device, Percutaneous Approach (ICD-10-PCS; 2018-01-28)
PROC: 5A09357 Assistance with Respiratory Ventilation, Less than 24 Consecutive Hours, Continuous Positive Airway Pressure (ICD-10-PCS; 2018-01-28)
PROC: 30233L1 Transfusion of Nonautologous Fresh Plasma into Peripheral Vein, Percutaneous Approach (ICD-10-PCS; 2018-01-28)
PROC: 30233K1 Transfusion of Nonautologous Frozen Plasma into Peripheral Vein, Percutaneous Approach (ICD-10-PCS; 2018-01-28)
PROC: 3E0L3GC Introduction of Other Therapeutic Substance into Pleural Cavity, Percutaneous Approach (ICD-10-PCS; 2018-01-29)
PROC: 0BBP4ZZ Excision of Left Pleura, Percutaneous Endoscopic Approach (ICD-10-PCS; 2018-02-01)
PROC: 0BNP4ZZ Release Left Pleura, Percutaneous Endoscopic Approach (ICD-10-PCS; 2018-02-01)
PROC: 0BNJ4ZZ Release Left Lower Lung Lobe, Percutaneous Endoscopic Approach (ICD-10-PCS; 2018-02-01)
PROC: 0W9B40Z Drainage of Left Pleural Cavity with Drainage Device, Percutaneous Endoscopic Approach (ICD-10-PCS; 2018-02-01)
PROC: 02HV33Z Insertion of Infusion Device into Superior Vena Cava, Percutaneous Approach (ICD-10-PCS; 2018-02-01)
PROC: 0B5P4ZZ Destruction of Left Pleura, Percutaneous Endoscopic Approach (ICD-10-PCS; principal; 2018-02-01 09:10)
PROC: 5A09357 Assistance with Respiratory Ventilation, Less than 24 Consecutive Hours, Continuous Positive Airway Pressure (ICD-10-PCS; 2018-02-03)
PROC: 5A09357 Assistance with Respiratory Ventilation, Less than 24 Consecutive Hours, Continuous Positive Airway Pressure (ICD-10-PCS; 2018-02-04)
DX: J90 Pleural effusion, not elsewhere classified (principal); D68.69 Other thrombophilia; J94.8 Other specified pleural conditions; E03.9 Hypothyroidism, unspecified; E11.22 Type 2 diabetes mellitus with diabetic chronic kidney disease; I12.9 Hypertensive chronic kidney disease with stage 1 through stage 4 chronic kidney disease, or unspecified chronic kidney disease; E11.51 Type 2 diabetes mellitus with diabetic peripheral angiopathy without gangrene; E78.5 Hyperlipidemia, unspecified; I25.10 Atherosclerotic heart disease of native coronary artery without angina pectoris; I48.2 Chronic atrial fibrillation; M19.90 Unspecified osteoarthritis, unspecified site; E66.9 Obesity, unspecified; N18.3 Chronic kidney disease, stage 3 (moderate); Z95.1 Presence of aortocoronary bypass graft; Z90.49 Acquired absence of other specified parts of digestive tract; Z79.899 Other long term (current) drug therapy; Z79.01 Long term (current) use of anticoagulants; Z68.39 Body mass index [BMI] 39.0-39.9, adult
CPT/HCPCS: 32557; 36415; 36600; 71045; 71250; 80048; 80053; 81001; 82803; 82945; 82948; 83036; 83615; 83735; 84100; 84443; 85018; 85025; 85610; 85730; 86885; 86900; 86901; 87070; 87077; 87185; 88108; 88305; 89051; 93005; 94002; 94003; 94640; 94760; 97110; 97116; 97162; 97530; A6255; A6257; A6258; A6402; A6449; A7000; A7048; C1758; C9250; G0378; J0690; J1170; J1815; J2001; J2250; J2270; J2405; J2704; J2997; J3010; J3490; J7030; J7040; J7060; J7120; P9017; P9059

== ENCOUNTER 2018-11-12 06:50 | Inpatient (IN) | payer MEDICARE, OTHER ==
[2018-11-11 12:24] LABS: BASOPHILS # (AUTO) 0.1 X10'3 (0-0.2); BASOPHILS % (AUTO) 1.5 % (0-1); EOSINOPHILS # (AUTO) 0.4 X10'3 (0-0.9); EOSINOPHILS % (AUTO) 3.9 % (0-6); HEMATOCRIT 38.2 % (42.0-52.0); HEMOGLOBIN 11.9 g/dl (14.0-17.9); LYMPHOCYTES # (AUTO) 1.5 X10'3 (1.1-4.8); LYMPHOCYTES % (AUTO) 15.5 % (21-51); MEAN CORPUSCULAR HEMOGLOBIN 24.9 PG (27.0-31.0); MEAN CORPUSCULAR HGB CONC 31.1 g/dL (33.0-36.5); MEAN PLATELET VOLUME 8.6 FL (7.4-10.4); MONOCYTES # (AUTO) 0.7 X10'3 (0-0.9); MONOCYTES % (AUTO) 7.4 % (2-12); NEUTROPHILS # (AUTO) 6.8 X10'3 (1.8-7.7); NEUTROPHILS % (AUTO) 71.7 % (42-75); PLATELET COUNT 260 X10'3 (140-440); RED BLOOD COUNT 4.78 X10'6 (4.70-6.10); RED CELL DISTRIBUTION WIDTH 18.1 % (11.5-14.5); WHITE BLOOD COUNT 9.5 X10'3 (4.5-11.0)
[2018-11-11 12:32] LABS: PARTIAL THROMBOPLASTIN TIME 31 SECONDS (22-32)
[2018-11-11 12:43] LABS: ANION GAP 7 (8-16); BLOOD UREA NITROGEN 25 MG/DL (7-18); BUN/CREATININE RATIO 18.4 (5.4-32.0); CALCIUM 8.3 MG/DL (8.5-10.1); CHLORIDE 108 MMOL/L (99-107); CREATININE 1.36 MG/DL (0.60-1.10); GLUCOSE 172 MG/DL (70-104); POTASSIUM 4.4 MMOL/L (3.5-5.1); SODIUM 142 MMOL/L (135-145); TOTAL CARBON DIOXIDE 27.3 MMOL/L (24-32); eGFR 50 ML/MIN
[2018-11-11 12:44] LABS: ALBUMIN 2.9 G/DL (3.4-5.0)
[~2018-11-12] VITALS: Ht 165.1 cm; Wt 107.9 kg
[2018-11-12] VITALS (22 sets, daily range): BP systolic 87–199; BP diastolic 36–82
[~2018-11-12 06:50] MED LIST changes: +FURO-149 PO; -FURO-150 PO; -HYDR-4353 PO; +LEVO125T PO; -LINA5TAB4 PO; -LISI10TA4 PO; -NITR0.4T48 SL; +SAXA5TAB PO; -SYN0.088T PO; +WARF-55 PO
[2018-11-12] MEDS ORDERED: acetylcysteine 200 MG/ml 4ml vial PO PRN ×2 (07:06→14:40)
[2018-11-12] MEDS ORDERED: LORazepam 0.5 MG tablet PO PRN (07:10)
[2018-11-12] MEDS ORDERED: diphenhydrAMINE 25mg capsule PO PRN (07:10)
[2018-11-12] MEDS ORDERED: LIDOcaine/PRILOcaine 5gm cream TP ONE ×2 (07:10→09:25)
[2018-11-12] MEDS ORDERED: TRAM1TAB7 PO (07:14)
[2018-11-12] MEDS ORDERED: NEO/5DRO3 LEFTEYE (07:14)
[2018-11-12] MEDS ORDERED: sodium bicarbonate inj. 100 ML in dextrose 5%-water 1,000 ML IV ONE ×2 (07:45→14:45)
[2018-11-12] MEDS ORDERED: LIDOcaine/PRILOcaine 5gm cream TP STA (11:10)
[2018-11-12] MEDS ORDERED: heparin 1,000unit/ml 10ml vial 10 ML ONE (11:12)
[2018-11-12] MEDS ORDERED: verapamil 2.5 mg/ml inj IV ONE (11:12)
[2018-11-12] MEDS ORDERED: nitroGLYCERIN-Tridil 50MG/D5W 250 ML IV ONE (11:12)
[2018-11-12] MEDS ORDERED: midazolam 2 mg/2 ml injection ONE ×2 (11:12→18:52)
[2018-11-12] MEDS ORDERED: fentaNYL/PF 50MCG/1 ML 2ML syringe ONE (11:12)
[2018-11-12] MEDS ORDERED: iohexol 350MG/ML 100ml bottle IV ONE ×3 (11:13→13:16)
[2018-11-12] MEDS ORDERED: iohexol 350 MG/ML 50ML vial IV ONE (11:13)
[2018-11-12] MEDS ORDERED: LIDOcaine 1% 30ml preserv. free vial ONE (11:13)
[2018-11-12] MEDS ORDERED: heparin 1,000 UNITS/NS 500ml 500 ML ONE (12:43)
[2018-11-12] MEDS ORDERED: hydrALAZINE 20mg/ml inj. IV ONE ×3 (13:25→18:00)
[2018-11-12] MEDS ORDERED: furosemide 40mg/4ml inj ONE (14:10)
--- NOTE | 2018-11-12 14:30 | NUR ---
Pt returned from blood bank laboratory technician accompanied by Carolina KAIS[facility]. Right groin site with femstop in place and small hematoma, will continue to monitor. Pt unable to void at this time, will place FC.
[2018-11-12] MEDS ORDERED: furosemide 40mg/4ml inj IV ONE (14:40)
[2018-11-12] MEDS ORDERED: HYDROcodone/acetaminophen 10/325mg tab PO PRN ×2 (14:40→17:00)
[2018-11-12] MEDS ORDERED: HYDROcodone/acetaminophen 5mg/325mg tablet PO PRN ×2 (14:40→17:00)
--- NOTE | 2018-11-12 14:45 | NUR ---
Right groin hematoma appears to be getting larger, will apply manual pressure. Call placed to Fredis and orders received. Don from hoisting laborer at the bedside holding pressure, vascular lab paged.
--- NOTE | 2018-11-12 15:00 | NUR ---
Dr. Castro and Angio RN's at bedside.
[2018-11-12] MEDS ORDERED: HYDROmorphone inj. 0.5 MG/0.5 ML DISP.SYRIN IV ONE (15:10)
[2018-11-12] MEDS ORDERED: HYDROmorphone 1 mg/ml syringe ONE (15:14)
[2018-11-12] MEDS ORDERED: Thrombin (Bovine) 5,000 unit vial TP ONE ×2 (15:35→16:10)
[2018-11-12] MEDS ORDERED: DOPamine 400mg/D5W 250ml 250 ML IV ONE (15:45)
[2018-11-12] MEDS ORDERED: fentaNYL/PF 50MCG/1 ML 2ML syringe IV ONE (16:15)
[2018-11-12] MEDS ORDERED: sodium phosphate inj. 30 MMOL in dextrose 5%-water 250 ML IV PRN (17:00)
[2018-11-12] MEDS ORDERED: sodium phosphate inj. 15 MMOL in dextrose 5%-water 150 ML IV PRN (17:00)
[2018-11-12] MEDS ORDERED: ondansetron/PF 4mg/2ml inj IV PRN ×2 (17:00→22:10)
[2018-11-12] MEDS ORDERED: magnesium Cl slow-release 64mg tablet PO PRN (17:00)
[2018-11-12] MEDS ORDERED: magnesium 4gm in 100ml NS 100 ML IV PRN (17:00)
[2018-11-12] MEDS ORDERED: potassium Cl 20 mEq SR tablet PO PRN ×2 (17:00)
[2018-11-12] MEDS ORDERED: acetaminophen 325mg tablet PO PRN ×2 (17:00)
[2018-11-12] MEDS ORDERED: magnesium 2GM in 50ml NS 50 ML IV PRN (17:00)
[2018-11-12] MEDS ORDERED: Neutra Phos packet PO PRN (17:00)
--- NOTE | 2018-11-12 17:30 | NUR ---
Report given to CICU, will transfer patient.
[2018-11-12] MEDS: K, MAG and/or Phos replacement - Verify level? MC SCH (18:00)
[2018-11-12] MEDS ORDERED: heparin 10,000 units/1 ML INJ ONE (18:02)
[2018-11-12] MEDS ORDERED: ceFAZolin 1000mg inj ONE (18:02)
[2018-11-12] MEDS ORDERED: ceFOXitin 2 GM ADDvantage bag 100 ML IV ONE (18:05)
--- NOTE | 2018-11-12 18:05 | NUR ---
Pt received from short stay via stretcher. Tx to ICU bed, placed on monitor. Vasc band noted left wrist, decreased by 2cc. Good perfusion noted by SPO2. Large hemo noted right groin. Pulse doppler, foot warm, sensation intact, able to move all toes. 1800: Dr. Jo at , stat ct ordered. BP 185/50, order for hydralazine obtained and given.
[2018-11-12] MEDS ORDERED: ceFOXitin 2 GM ADDVANTGE BAG 50 ML IV ONE (18:10)
--- NOTE | 2018-11-12 18:30 | NUR ---
received report from Jeremiah K[facility] limited due to the fact patient was in room 20 minutes prior to shift change and that patient needed to go to or stat
[2018-11-12] MEDS ORDERED: LIDOcaine 1% (10mg/ml) 2ml vial ONE (18:36)
[2018-11-12] MEDS ORDERED: fentaNYL /PF 50mcg/ml 5ml ampule ONE (18:52)
[2018-11-12] MEDS ORDERED: rocuronium 10mg/ml inj IV ONE ×2 (18:54→19:14)
[2018-11-12] MEDS ORDERED: propofol inj 20 ML IV ONE (18:54)
[2018-11-12] MEDS ORDERED: ePHEDrine 50MG/ML INJ. ONE (18:57)
--- NOTE | 2018-11-12 19:10 | NUR ---
patient picked up by OR team going to stat surgery with Dr. Gomez
[2018-11-12] MEDS ORDERED: sevoflurane 250ml liquid IH ONE (19:14)
[2018-11-12] MEDS: docusate sod 100mg capsule PO SCH (20:00)
[2018-11-12] MEDS ORDERED: albumin (Human) 5% 250ml 250 ML IV ONE ×2 (20:27)
--- NOTE | 2018-11-12 20:58 | NUR ---
PATIENT STILL IN OR, PATIENTS IN ROOM FEET UP WARM BLANKETS, PROVIDED ICE WATER, WAITING FOR PATIENT COMFORTABLY
[2018-11-12] MEDS ORDERED: vancomycin 1,000mg inj ONE (20:59)
--- NOTE | 2018-11-12 21:45 | NUR ---
OR CALLED, PATIENT IS BEING CLOSED UP, OR WILL CALL BEFORE PATIENT COMES TO #[id number]
[2018-11-12] MEDS ORDERED: neostigmine methylsulfate 1 MG/ML 10ml vial ONE (22:00)
[2018-11-12] MEDS ORDERED: glycopyrrolate 0.2mg/ml inj ONE (22:00)
[2018-11-12] MEDS ORDERED: nitroPRUSSIDE in NS 100 ML IV PRN (22:32)
--- NOTE | 2018-11-12 22:53 | NUR ---
received report from roberth KAISER no questions or concerns after assuming care
--- NOTE | 2018-11-12 23:31 | NUR ---
kar " ." home# [phone] cell # [phone]
[2018-11-13] VITALS (25 sets, daily range): BP systolic 100–144; BP diastolic 34–58
[2018-11-13] MEDS: ceFOXitin 1 GM/D5W 50mL IVPB 50 ML IV SCH ×2 (00:12→08:42)
[2018-11-13] MEDS: normal saline 1000ml 1,000 ML IV SCH ×2 (00:12→11:10)
[2018-11-13] MEDS: Potassium Cl inj 20 MEQ in ringers solution, lacted 1,000 ML IV SCH ×2 (00:12→08:15)
[2018-11-13 01:37] LABS: ALANINE AMINOTRANSFERASE 24 U/L (12-78); ALBUMIN 2.4 G/DL (3.4-5.0); ALBUMIN/GLOBULIN RATIO 0.8 (1.1-1.5); ALKALINE PHOSPHATASE 94 IU/L (46-116); ANION GAP 7 (8-16); ASPARTATE AMINO TRANSFERASE 28 U/L (10-37); BILIRUBIN,TOTAL 1.1 MG/DL (0.1-1.0); BLOOD UREA NITROGEN 21 MG/DL (7-18); BUN/CREATININE RATIO 12.7 (5.4-32.0); CALCIUM 7.1 MG/DL (8.5-10.1); CHLORIDE 109 MMOL/L (99-107); CREATININE 1.66 MG/DL (0.60-1.10); GLUCOSE 137 MG/DL (70-104); MAGNESIUM 1.8 MG/DL (1.5-2.4); PHOSPHORUS 3.3 MG/DL (2.3-4.5); SODIUM 144 MMOL/L (135-145); TOTAL CARBON DIOXIDE 27.6 MMOL/L (24-32); TOTAL PROTEIN 5.5 G/DL (6.4-8.2); eGFR 40 ML/MIN
[2018-11-13 01:42] LABS: BASOPHILS # (AUTO) 0.1 X10'3 (0-0.2); BASOPHILS % (AUTO) 0.8 % (0-1); EOSINOPHILS # (AUTO) 0.1 X10'3 (0-0.9); EOSINOPHILS % (AUTO) 0.6 % (0-6); HEMATOCRIT 28.5 % (42.0-52.0); HEMOGLOBIN 8.9 g/dl (14.0-17.9); LYMPHOCYTES # (AUTO) 1.3 X10'3 (1.1-4.8); LYMPHOCYTES % (AUTO) 7.5 % (21-51); MEAN CORPUSCULAR HEMOGLOBIN 24.7 PG (27.0-31.0); MEAN CORPUSCULAR HGB CONC 31.2 g/dL (33.0-36.5); MEAN CORPUSCULAR VOLUME 79.2 FL (78-98); MEAN PLATELET VOLUME 8.6 FL (7.4-10.4); MONOCYTES # (AUTO) 1.1 X10'3 (0-0.9); MONOCYTES % (AUTO) 6.4 % (2-12); NEUTROPHILS # (AUTO) 14.6 X10'3 (1.8-7.7); NEUTROPHILS % (AUTO) 84.7 % (42-75); PLATELET COUNT 259 X10'3 (140-440); RED CELL DISTRIBUTION WIDTH 17.9 % (11.5-14.5); WHITE BLOOD COUNT 17.3 X10'3 (4.5-11.0)
--- NOTE | 2018-11-13 02:00 | NUR ---
PATIENT SUPINE IN BED EYES CLOSED RR EVEN UN LABORED NO OBSERVABLE S/S OF ACUTE STRESS AT THIS TIME
[2018-11-13] MEDS: HYDROmorphone inj. 0.5 MG/0.5 ML DISP.SYRIN IV PRN (05:00)
--- NOTE | 2018-11-13 05:21 | NUR ---
noticed seeping at the noemy drain insertion drained noemy drain discovered clot blocking drain, attempted to work the clot out to no avail, notified CN Meche, verbalized to reinforce dressing and that their is nothing to do about the clot, patient was in 7/10 pressure pain, relieved with 0.5 mg Dilaudid, patient is currently supine in bed eyes closed rr even un labored no observable s/s of acute stress at this time
--- NOTE | 2018-11-13 06:26 | NUR ---
SBAR TO REJI KAISER NO QUESTIONS OR CONCERNS AFTER ASSUMING CARE
[2018-11-13 07:39] LABS: HEMOGLOBIN 8.1 g/dl (14.0-17.9); MEAN CORPUSCULAR HEMOGLOBIN 24.8 PG (27.0-31.0); MEAN CORPUSCULAR HGB CONC 31.2 g/dL (33.0-36.5); MEAN CORPUSCULAR VOLUME 79.7 FL (78-98); MEAN PLATELET VOLUME 8.2 FL (7.4-10.4); PLATELET COUNT 239 X10'3 (140-440); RED BLOOD COUNT 3.26 X10'6 (4.70-6.10); RED CELL DISTRIBUTION WIDTH 17.9 % (11.5-14.5); WHITE BLOOD COUNT 15.3 X10'3 (4.5-11.0)
[2018-11-13 07:46] LABS: ISTAT HGB ART 12.2 g/dl (14.0-18.0); ISTAT Hct ART 36 %PCV (42-52); ISTAT O2 SATURATION ARTERIAL 97 % (95-98); ISTAT SOURCE ART
[2018-11-13 07:46] LABS: ISTAT Hct MIX 36 %PCV (42-52); ISTAT O2 SATURATION MIX VENOUS 67 % (60-80); ISTAT SOURCE MIX
[2018-11-13] MEDS: K, MAG and/or Phos replacement - Verify level? MC SCH (08:34)
[2018-11-13] MEDS: HYDROcodone/acetaminophen 10/325mg tab PO PRN ×2 (08:39→16:44)
[2018-11-13] MEDS: pantoprazole 40mg Tablet.DR PO SCH (08:39)
[2018-11-13] MEDS: docusate sod 100mg capsule PO SCH ×2 (08:39→20:02)
--- NOTE | 2018-11-13 09:00 | NUR ---
pt starting having nonproductive cough. Sat pt up in bed and encouraged to cough. IS and flutter valve given to pt and educated on use. pt sating 90-94% on RA. Placed pt on ETCo2 d/t pts lethargy. ETCO2 between 37-40.
--- NOTE | 2018-11-13 10:32 | NUR ---
Dr. Gomez to bedside. RN notified him of oozing at the noemy drain and wound vac site. noemy drain bulb changed to monitor output more efficiently d/t large blood clot forming in other bulb. MD aware and noted previous output. stone polisher hand to come change wound vac dsg today. MD stated ok to remove ART line, change fluids to KVO, increase diet as tolerated, and he wants pt up and walking later today. RN placed verbal orders to reflect MD request. Pt sitting up in bed in chair position for progressive mobility.
--- NOTE | 2018-11-13 10:42 | NUR ---
pt sitting up in bed and sleeping, on RA, O2 sat decreased to 88%. Woke up pt and helped him do IS and flutter, tolerated well and coughed. Sats increased to 95%. Pt coughed up large amount of cream colored sputum. ETCO2 between 36-38.
[2018-11-13 11:58] LABS: HEMOGLOBIN A1C 7.3 % (4.5-6.2)
[2018-11-13] MEDS ORDERED: WARF2.5T PO (12:57)
--- NOTE | 2018-11-13 14:40 | NUR ---
WOUND VAC EDUCATION PROVIDED BY WOUND CARE 1. Patient instructed to call the Wound Center or their Home Health Agency immediately if: * They notice a change in the color or amount of the fluid in the canister. * Their wound looks more red than usual or has a foul smell. * The skin around their wound looks reddened or irritated. * The dressing feels loose or appears to be loose. * They experience any increase or changes in their pain. * The alarm will not turn off. 2. Patient instructed that they should not be disconnected from suction for more than 2 hours at a time. * If they are not able to get the suction back on, they need to remove the dressing and take all of the foam out of the wound. * Then moisten sterile gauze with normal saline and place on/in the wound. * Change the dressing once a day until arrangements have been made to replace the wound vac dressing. 3. Patient instructed to turn the wound vac machine OFF and call 911 or go to the ED immediately if their canister fills rapidly with blood. 4. If any of these occur while in the hospital tell a nurse immediately. Addendum: 11/13/18 at 1440 by Krysten Christina RN Amended: Links added.
--- NOTE | 2018-11-13 18:13 | NUR ---
Problems reprioritized. Patient report given, questions answered & plan of care reviewed with JBO Wiseman.
--- NOTE | 2018-11-13 18:30 | NUR ---
assumed care from felix KAISER no questions or concerns after SBAR
[2018-11-13] MEDS ORDERED: ceFOXitin 2 GM ADDvantage bag 100 ML IV SCH (20:00)
[2018-11-13] MEDS: ceFOXitin sod/dextrose 2g/50ml 50 ML IV SCH (20:05)
--- NOTE | 2018-11-13 22:55 | NUR ---
patient in bed eyes closed rr even un labored no observable s/s of acute stress at this time
[2018-11-14] VITALS (23 sets, daily range): BP systolic 109–141; BP diastolic 32–58
--- NOTE | 2018-11-14 01:31 | NUR ---
observed patient multiple times this shift use the IS and flutter valve with out prompt or assist and appropriately, patient is in bed eyes open rr even un labored using is and flutter no observable s/s of acute stress at this time
[2018-11-14] MEDS: ceFOXitin sod/dextrose 2g/50ml 50 ML IV SCH ×2 (02:07→08:55)
--- NOTE | 2018-11-14 02:28 | NUR ---
at 0210 pt requested to be put on oxygen. He was taking shallow breathes and his O2 was at 92%. Pt has NC at beside prn, so placed him on 2 liters and his O2 went up to 99%.
[2018-11-14 03:31] LABS: BASOPHILS # (AUTO) 0.1 X10'3 (0-0.2); BASOPHILS % (AUTO) 0.5 % (0-1); EOSINOPHILS # (AUTO) 0.9 X10'3 (0-0.9); EOSINOPHILS % (AUTO) 5.5 % (0-6); HEMOGLOBIN 7.1 g/dl (14.0-17.9); LYMPHOCYTES # (AUTO) 1.5 X10'3 (1.1-4.8); LYMPHOCYTES % (AUTO) 9.7 % (21-51); MEAN CORPUSCULAR HEMOGLOBIN 24.7 PG (27.0-31.0); MEAN CORPUSCULAR VOLUME 79.7 FL (78-98); MONOCYTES # (AUTO) 1.6 X10'3 (0-0.9); MONOCYTES % (AUTO) 9.8 % (2-12); NEUTROPHILS # (AUTO) 11.8 X10'3 (1.8-7.7); NEUTROPHILS % (AUTO) 74.5 % (42-75); PLATELET COUNT 233 X10'3 (140-440); RED BLOOD COUNT 2.88 X10'6 (4.70-6.10); RED CELL DISTRIBUTION WIDTH 18.1 % (11.5-14.5); WHITE BLOOD COUNT 15.8 X10'3 (4.5-11.0)
[2018-11-14 03:41] LABS: PARTIAL THROMBOPLASTIN TIME 26 SECONDS (22-32)
[2018-11-14 03:43] LABS: ALANINE AMINOTRANSFERASE 21 U/L (12-78); ALBUMIN/GLOBULIN RATIO 0.6 (1.1-1.5); ALKALINE PHOSPHATASE 89 IU/L (46-116); ANION GAP 6 (8-16); ASPARTATE AMINO TRANSFERASE 30 U/L (10-37); BLOOD UREA NITROGEN 29 MG/DL (7-18); BUN/CREATININE RATIO 13.8 (5.4-32.0); CALCIUM 7.4 MG/DL (8.5-10.1); CHLORIDE 108 MMOL/L (99-107); GLUCOSE 131 MG/DL (70-104); MAGNESIUM 1.8 MG/DL (1.5-2.4); PHOSPHORUS 3.4 MG/DL (2.3-4.5); POTASSIUM 4.2 MMOL/L (3.5-5.1); SODIUM 143 MMOL/L (135-145); TOTAL CARBON DIOXIDE 29.2 MMOL/L (24-32); TOTAL PROTEIN 5.1 G/DL (6.4-8.2); eGFR 30 ML/MIN
--- NOTE | 2018-11-14 04:01 | NUR ---
0400 pt requested to get up out of bed. transferred him to the chair with minimal assist. pt respiratory rate and pattern is unlabored. pt's O2 is AT 95% with no O2.
--- NOTE | 2018-11-14 05:14 | NUR ---
patient still preferring to be in chair, "helps my back." rr even un labored no observable s/s of acute stress or bleeding
--- NOTE | 2018-11-14 06:25 | NUR ---
sbar to Tomas KAISER no questions or concerns after SBAR
--- NOTE | 2018-11-14 06:30 | NUR ---
Patient in room CICU 2013. I have received report from JOB Wiseman and had the opportunity to ask questions and assume patient care.
[2018-11-14] MEDS: HYDROcodone/acetaminophen 10/325mg tab PO PRN ×2 (07:30→16:28)
[2018-11-14] MEDS: K, MAG and/or Phos replacement - Verify level? MC SCH (07:33)
[2018-11-14] MEDS: aspirin 81mg tablet.DR PO SCH (08:27)
[2018-11-14] MEDS: docusate sod 100mg capsule PO SCH ×2 (08:27→20:06)
[2018-11-14] MEDS: pantoprazole 40mg Tablet.DR PO SCH (08:27)
[2018-11-14] MEDS: HYDROmorphone inj. 0.5 MG/0.5 ML DISP.SYRIN IV PRN (11:27)
[2018-11-14 14:02] LABS: CLARITY,URINE SLIGHTLY CLOUDY (Clear); COLOR,URINE YELLOW (Yellow); GLUCOSE, URINE NEGATIVE (Neg); KETONES,URINE NEGATIVE (Neg); LEUKOCYTE ESTERASE ,URINE NEGATIVE (Neg); NITRITES, URINE NEGATIVE (Neg); OCCULT BLOOD,URINE LARGE (Neg); PROTEIN,URINE 100 mg/dl (Neg)
[2018-11-14 14:05] LABS: UA COLLECTION TYPE FOLEY CATH
[2018-11-14 14:15] LABS: MUCUS STRANDS FEW /LPF (Neg); SQUAMOUS EPITHELIAL CELL,UR NONE SEEN /LPF (FEW)
[2018-11-14 14:18] LABS: BACTERIA,URINE 1+ /HPF (Neg)
[2018-11-14 16:08] LABS: UA EOSINOPHILS NO EOS /HPF
--- NOTE | 2018-11-14 16:32 | NUR ---
DM consult, A1c 7.3, pt given written DM education handout with verbal review and referral to outpatient DM education class on Saturday. Addendum: 11/14/18 at [address] Amended: Links added.
--- NOTE | 2018-11-14 18:30 | NUR ---
Patient in room CICU 2013. I have received report from JOB Marin and had the opportunity to ask questions and assume patient care.
--- NOTE | 2018-11-14 19:45 | NUR ---
Pt denying walk this evening, transferred back to bed from chair.
[2018-11-14] MEDS ORDERED: warfarin 5mg tablet PO ONE (21:00)
[2018-11-15] VITALS (15 sets, daily range): BP systolic 118–142; BP diastolic 34–57
--- NOTE | 2018-11-15 06:12 | NUR ---
Problems reprioritized. Patient report given, questions answered & plan of care reviewed with JOB Salgado.
[2018-11-15 06:39] LABS: BASOPHILS # (AUTO) 0.1 X10'3 (0-0.2); BASOPHILS % (AUTO) 0.5 % (0-1); EOSINOPHILS # (AUTO) 1.2 X10'3 (0-0.9); EOSINOPHILS % (AUTO) 7.5 % (0-6); HEMATOCRIT 23.6 % (42.0-52.0); HEMOGLOBIN 7.4 g/dl (14.0-17.9); LYMPHOCYTES # (AUTO) 1.5 X10'3 (1.1-4.8); MEAN CORPUSCULAR HEMOGLOBIN 25.1 PG (27.0-31.0); MEAN CORPUSCULAR HGB CONC 31.6 g/dL (33.0-36.5); MEAN CORPUSCULAR VOLUME 79.5 FL (78-98); MEAN PLATELET VOLUME 8.6 FL (7.4-10.4); MONOCYTES # (AUTO) 1.4 X10'3 (0-0.9); NEUTROPHILS # (AUTO) 11.3 X10'3 (1.8-7.7); PLATELET COUNT 268 X10'3 (140-440); RED BLOOD COUNT 2.96 X10'6 (4.70-6.10); WHITE BLOOD COUNT 15.4 X10'3 (4.5-11.0)
[2018-11-15 06:46] LABS: ALANINE AMINOTRANSFERASE 23 U/L (12-78); ALBUMIN/GLOBULIN RATIO 0.6 (1.1-1.5); ALKALINE PHOSPHATASE 106 IU/L (46-116); ANION GAP 4 (8-16); ASPARTATE AMINO TRANSFERASE 57 U/L (10-37); BILIRUBIN,TOTAL 1.1 MG/DL (0.1-1.0); BLOOD UREA NITROGEN 33 MG/DL (7-18); BUN/CREATININE RATIO 16.9 (5.4-32.0); CALCIUM 8.2 MG/DL (8.5-10.1); CHLORIDE 108 MMOL/L (99-107); CREATININE 1.95 MG/DL (0.60-1.10); GLUCOSE 110 MG/DL (70-104); MAGNESIUM 2.2 MG/DL (1.5-2.4); PHOSPHORUS 3.6 MG/DL (2.3-4.5); SODIUM 141 MMOL/L (135-145); TOTAL CARBON DIOXIDE 29.4 MMOL/L (24-32); TOTAL PROTEIN 5.6 G/DL (6.4-8.2); eGFR 33 ML/MIN
[2018-11-15 06:47] LABS: POTASSIUM 4.6 MMOL/L (3.5-5.1)
--- NOTE | 2018-11-15 06:57 | NUR ---
Patient in room CICU 2013. I have received report from JOB Montalvo and had the opportunity to ask questions and assume patient care. Patient is currently sleeping in bed, bed locked and low, call light in reach, WVAC running at 75mmhg continuous in R groin and functioning well, patient stable, will continue to monitor.
[2018-11-15] MEDS: normal saline 1000ml 1,000 ML IV SCH ×2 (07:14→16:18)
[2018-11-15] MEDS: HYDROcodone/acetaminophen 10/325mg tab PO PRN (07:48)
[2018-11-15] MEDS: aspirin 81mg tablet.DR PO SCH (07:48)
[2018-11-15] MEDS: docusate sod 100mg capsule PO SCH ×2 (07:48→20:09)
[2018-11-15] MEDS: pantoprazole 40mg Tablet.DR PO SCH (07:48)
[2018-11-15] MEDS: K, MAG and/or Phos replacement - Verify level? MC SCH (07:49)
--- NOTE | 2018-11-15 11:58 | NUR ---
Received patient report from ICU nurse Naomi KAISER. Awaiting arrival to room 360A.
--- NOTE | 2018-11-15 12:15 | NUR ---
Problems reprioritized. Patient report given, questions answered & plan of care reviewed with JOB Schmidt med/surg. Patient transfered to unit successfully, in stable condition, WVAC at 75mmhg cont.
--- NOTE | 2018-11-15 13:16 | NUR ---
Dr. Edmondson regarding med rec. Awaiting call back.
[2018-11-15] MEDS ORDERED: nitroGLYCERIN 0.4mg SUBLingual tab SL PRN (15:55)
[2018-11-15] MEDS: furosemide 20 MG/2 ML vial IV SCH (16:18)
[2018-11-15] MEDS: neomycin/polymyxn B/dexameth ophth suspension 5ml LEFTEYE SCH ×3 (16:18→23:50)
--- NOTE | 2018-11-15 18:20 | NUR ---
Patient in room [facility] 360. I have received report from Roxana KAISER and had the opportunity to ask questions and assume patient care.
--- NOTE | 2018-11-15 18:20 | NUR ---
Problems reprioritized. Patient report given, questions answered & plan of care reviewed with Francia KAISER.
[2018-11-15] MEDS: atorvastatin 10mg tablet PO SCH (20:09)
[2018-11-15] MEDS: metoprolol tartrate 12.5mg (1/2 tablet) PO SCH (20:10)
[2018-11-15] MEDS: magnesium hydroxide 30ml (MOM) UD suspension PO PRN (20:10)
[2018-11-15] MEDS: albuterol 2.5 MG/3 ML nebule NEB SCH ×2 (20:25→23:54)
[2018-11-15] MEDS ORDERED: warfarin 5mg tablet PO ONE (21:00)
--- NOTE | 2018-11-15 23:50 | NUR ---
pt and stated that if he is asleep that the pt doesnt want to be waken up for eye drops. will continue to monitor.
[2018-11-16] MEDS: neomycin/polymyxn B/dexameth ophth suspension 5ml LEFTEYE SCH ×5 (03:26→21:27)
[2018-11-16] MEDS: albuterol 2.5 MG/3 ML nebule NEB SCH ×6 (03:43→23:06)
[2018-11-16 05:14] LABS: BASOPHILS # (AUTO) 0.1 X10'3 (0-0.2); BASOPHILS % (AUTO) 0.7 % (0-1); EOSINOPHILS # (AUTO) 0.8 X10'3 (0-0.9); EOSINOPHILS % (AUTO) 5.6 % (0-6); LYMPHOCYTES # (AUTO) 1.5 X10'3 (1.1-4.8); LYMPHOCYTES % (AUTO) 10.4 % (21-51); MEAN CORPUSCULAR HEMOGLOBIN 25.2 PG (27.0-31.0); MEAN CORPUSCULAR HGB CONC 31.8 g/dL (33.0-36.5); MEAN CORPUSCULAR VOLUME 79.3 FL (78-98); MEAN PLATELET VOLUME 8.1 FL (7.4-10.4); MONOCYTES # (AUTO) 1.7 X10'3 (0-0.9); MONOCYTES % (AUTO) 11.5 % (2-12); NEUTROPHILS # (AUTO) 10.4 X10'3 (1.8-7.7); NEUTROPHILS % (AUTO) 71.8 % (42-75); PLATELET COUNT 295 X10'3 (140-440); RED BLOOD COUNT 2.76 X10'6 (4.70-6.10); WHITE BLOOD COUNT 14.4 X10'3 (4.5-11.0)
[2018-11-16 05:19] LABS: HEMATOCRIT 21.9 % (42.0-52.0); HEMOGLOBIN 6.9 g/dl (14.0-17.9)
[2018-11-16 05:27] LABS: ALANINE AMINOTRANSFERASE 18 U/L (12-78); ALBUMIN 1.9 G/DL (3.4-5.0); ALBUMIN/GLOBULIN RATIO 0.5 (1.1-1.5); ALKALINE PHOSPHATASE 111 IU/L (46-116); ANION GAP 9 (8-16); ASPARTATE AMINO TRANSFERASE 40 U/L (10-37); BILIRUBIN,TOTAL 1.4 MG/DL (0.1-1.0); BLOOD UREA NITROGEN 36 MG/DL (7-18); BUN/CREATININE RATIO 19.6 (5.4-32.0); CALCIUM 8.3 MG/DL (8.5-10.1); CHLORIDE 105 MMOL/L (99-107); CREATININE 1.84 MG/DL (0.60-1.10); GLUCOSE 137 MG/DL (70-104); MAGNESIUM 2.2 MG/DL (1.5-2.4); PHOSPHORUS 3.2 MG/DL (2.3-4.5); POTASSIUM 4.2 MMOL/L (3.5-5.1); SODIUM 140 MMOL/L (135-145); TOTAL CARBON DIOXIDE 26.3 MMOL/L (24-32); TOTAL PROTEIN 5.6 G/DL (6.4-8.2); eGFR 35 ML/MIN
--- NOTE | 2018-11-16 06:28 | NUR ---
Problems reprioritized. Patient report given, questions answered & plan of care reviewed with Christy KAISER.
[2018-11-16] MEDS: K, MAG and/or Phos replacement - Verify level? MC SCH (07:44)
[2018-11-16 08:00] VITALS: BP 129/55
[2018-11-16] MEDS: levoTHYROXINE 125mcg tablet PO SCH (08:11)
[2018-11-16] MEDS: digoxin 250mcg (0.25mg) tablet PO SCH (08:12)
[2018-11-16] MEDS: furosemide 20 MG/2 ML vial IV SCH (08:13)
[2018-11-16] MEDS: aspirin 81mg tablet.DR PO SCH (08:13)
[2018-11-16] MEDS: docusate sod 100mg capsule PO SCH ×2 (08:13→21:30)
[2018-11-16] MEDS: metoprolol tartrate 12.5mg (1/2 tablet) PO SCH ×2 (08:13→21:30)
[2018-11-16] MEDS: pantoprazole 40mg Tablet.DR PO SCH (08:13)
[2018-11-16 09:05] LABS: HEMATOCRIT 22.5 % (42.0-52.0); MEAN CORPUSCULAR HEMOGLOBIN 24.7 PG (27.0-31.0); MEAN CORPUSCULAR HGB CONC 31.4 g/dL (33.0-36.5); MEAN CORPUSCULAR VOLUME 78.8 FL (78-98); MEAN PLATELET VOLUME 8.2 FL (7.4-10.4); PLATELET COUNT 299 X10'3 (140-440); RED BLOOD COUNT 2.85 X10'6 (4.70-6.10); RED CELL DISTRIBUTION WIDTH 17.7 % (11.5-14.5); WHITE BLOOD COUNT 14.4 X10'3 (4.5-11.0)
[2018-11-16 10:44] VITALS: BP 110/44
[2018-11-16] MEDS ORDERED: ceFOXitin 2 GM ADDvantage bag 100 ML IV SCH (12:00)
[2018-11-16] MEDS: ceFOXitin 2 GM ADDvantage bag 100 ML IV SCH (13:07)
[2018-11-16 15:39] LABS: BASOPHILS # (AUTO) 0.1 X10'3 (0-0.2); BASOPHILS % (AUTO) 0.8 % (0-1); EOSINOPHILS # (AUTO) 0.8 X10'3 (0-0.9); HEMATOCRIT 23.2 % (42.0-52.0); HEMOGLOBIN 7.2 g/dl (14.0-17.9); LYMPHOCYTES # (AUTO) 0.9 X10'3 (1.1-4.8); LYMPHOCYTES % (AUTO) 6.7 % (21-51); MEAN CORPUSCULAR HEMOGLOBIN 25.1 PG (27.0-31.0); MEAN CORPUSCULAR HGB CONC 31.1 g/dL (33.0-36.5); MEAN CORPUSCULAR VOLUME 80.7 FL (78-98); MEAN PLATELET VOLUME 8.1 FL (7.4-10.4); MONOCYTES # (AUTO) 1.4 X10'3 (0-0.9); MONOCYTES % (AUTO) 10.1 % (2-12); NEUTROPHILS # (AUTO) 10.7 X10'3 (1.8-7.7); NEUTROPHILS % (AUTO) 76.4 % (42-75); PLATELET COUNT 286 X10'3 (140-440); RED BLOOD COUNT 2.88 X10'6 (4.70-6.10); RED CELL DISTRIBUTION WIDTH 17.9 % (11.5-14.5); WHITE BLOOD COUNT 13.9 X10'3 (4.5-11.0)
--- NOTE | 2018-11-16 15:54 | NUR ---
Initial: Pt s/p left and right cardiac caths PO 75-100% meals meeting needs. LBM 11/11; RD left message w/ RN regarding increased bowel care since receiving colace and MoM PRN last dose 11/15. Will continue to monitor. Rec: 1. continue carb controlled diet 2. routine bowel care 3. wt per rx Addendum: 11/16/18 at [address] Amended: Links added.
--- NOTE | 2018-11-16 18:30 | NUR ---
Patient in room [facility] 360. I have received report from Christy KAISER and had the opportunity to ask questions and assume patient care.
[2018-11-16 19:00] VITALS: BP 149/33
[2018-11-16] MEDS ORDERED: warfarin 3mg tablet PO ONE (21:00)
[2018-11-16] MEDS: atorvastatin 10mg tablet PO SCH (21:31)
[2018-11-17] VITALS (9 sets, daily range): BP systolic 130–160; BP diastolic 48–62
[2018-11-17] MEDS: ceFOXitin 2 GM ADDvantage bag 100 ML IV SCH (00:45)
[2018-11-17] MEDS: neomycin/polymyxn B/dexameth ophth suspension 5ml LEFTEYE SCH ×6 (00:48→21:49)
[2018-11-17] MEDS: albuterol 2.5 MG/3 ML nebule NEB SCH ×6 (04:05→23:08)
[2018-11-17 05:20] LABS: BASOPHILS # (AUTO) 0.1 X10'3 (0-0.2); BASOPHILS % (AUTO) 0.7 % (0-1); EOSINOPHILS # (AUTO) 0.8 X10'3 (0-0.9); EOSINOPHILS % (AUTO) 6.2 % (0-6); LYMPHOCYTES # (AUTO) 1.3 X10'3 (1.1-4.8); LYMPHOCYTES % (AUTO) 10.1 % (21-51); MEAN CORPUSCULAR HEMOGLOBIN 25.1 PG (27.0-31.0); MEAN CORPUSCULAR HGB CONC 31.9 g/dL (33.0-36.5); MEAN CORPUSCULAR VOLUME 78.6 FL (78-98); MEAN PLATELET VOLUME 7.9 FL (7.4-10.4); MONOCYTES # (AUTO) 1.7 X10'3 (0-0.9); MONOCYTES % (AUTO) 12.7 % (2-12); NEUTROPHILS # (AUTO) 9.3 X10'3 (1.8-7.7); NEUTROPHILS % (AUTO) 70.3 % (42-75); PLATELET COUNT 309 X10'3 (140-440); RED BLOOD COUNT 2.75 X10'6 (4.70-6.10); RED CELL DISTRIBUTION WIDTH 17.7 % (11.5-14.5); WHITE BLOOD COUNT 13.2 X10'3 (4.5-11.0)
[2018-11-17 05:26] LABS: HEMATOCRIT 21.6 % (42.0-52.0); HEMOGLOBIN 6.9 g/dl (14.0-17.9)
[2018-11-17 05:35] LABS: ALANINE AMINOTRANSFERASE 21 U/L (12-78); ALBUMIN 1.9 G/DL (3.4-5.0); ALBUMIN/GLOBULIN RATIO 0.5 (1.1-1.5); ALKALINE PHOSPHATASE 121 IU/L (46-116); ANION GAP 8 (8-16); ASPARTATE AMINO TRANSFERASE 36 U/L (10-37); BILIRUBIN,TOTAL 1.8 MG/DL (0.1-1.0); BLOOD UREA NITROGEN 33 MG/DL (7-18); BUN/CREATININE RATIO 17.8 (5.4-32.0); CALCIUM 8.1 MG/DL (8.5-10.1); CHLORIDE 105 MMOL/L (99-107); CREATININE 1.85 MG/DL (0.60-1.10); GLUCOSE 122 MG/DL (70-104); PHOSPHORUS 3.2 MG/DL (2.3-4.5); POTASSIUM 4.1 MMOL/L (3.5-5.1); SODIUM 140 MMOL/L (135-145); TOTAL CARBON DIOXIDE 27.5 MMOL/L (24-32); TOTAL PROTEIN 5.8 G/DL (6.4-8.2); eGFR 35 ML/MIN
--- NOTE | 2018-11-17 06:18 | NUR ---
Problems reprioritized. Patient report given, questions answered & plan of care reviewed with Christy KAISER.
[2018-11-17] MEDS: K, MAG and/or Phos replacement - Verify level? MC SCH (08:00)
[2018-11-17] MEDS: levoTHYROXINE 125mcg tablet PO SCH (08:58)
[2018-11-17] MEDS: pantoprazole 40mg Tablet.DR PO SCH (08:59)
[2018-11-17] MEDS: docusate sod 100mg capsule PO SCH ×2 (08:59→21:48)
[2018-11-17] MEDS: digoxin 250mcg (0.25mg) tablet PO SCH (08:59)
[2018-11-17] MEDS: aspirin 81mg tablet.DR PO SCH (08:59)
[2018-11-17] MEDS: metoprolol tartrate 12.5mg (1/2 tablet) PO SCH ×2 (08:59→20:00)
[2018-11-17] MEDS: furosemide 20 MG/2 ML vial IV SCH (09:00)
[2018-11-17] MEDS: normal saline 1000ml 1,000 ML IV SCH (09:00)
--- NOTE | 2018-11-17 15:29 | NUR ---
WOUND INFECTION EDUCATION PROVIDED BY WOUND CARE 1. Patient instructed to call their primary doctor, or go the ED immediately if any of the following symptoms occur: * Increased pain in wound * Increase in drainage from the wound * Redness in the skin surrounding the wound * Warmth in the skin surrounding the wound * Bleeding from the wound * Temperature of 101 or greater 2. If any of these occur while in the hospital tell a nurse immediately. Addendum: 11/17/18 at 1529 by Krysten Christina RN Amended: Links added.
[2018-11-17] MEDS: ceFOXitin sod/dextrose 2g/50ml 50 ML IV SCH (16:25)
[2018-11-17] MEDS: HYDROmorphone inj. 0.5 MG/0.5 ML DISP.SYRIN IV PRN (16:41)
[2018-11-17] MEDS ORDERED: morphine 2 MG/ML inj. syringe IV PRN (18:00)
--- NOTE | 2018-11-17 18:30 | NUR ---
Patient in room [facility] 360. I have received report from Christy KAISER and had the opportunity to ask questions and assume patient care.
[2018-11-17] MEDS ORDERED: warfarin 1mg tablet PO ONE (21:00)
[2018-11-17] MEDS: lactobacillus rhamnosus 10,000 MMU CELLS/CAPSULE PO SCH (21:48)
[2018-11-17] MEDS: atorvastatin 10mg tablet PO SCH (21:49)
[2018-11-18] MEDS: ceFOXitin sod/dextrose 2g/50ml 50 ML IV SCH ×3 (00:42→17:21)
[2018-11-18] MEDS: neomycin/polymyxn B/dexameth ophth suspension 5ml LEFTEYE SCH ×6 (00:43→21:14)
[2018-11-18] MEDS: albuterol 2.5 MG/3 ML nebule NEB SCH ×6 (02:40→23:35)
[2018-11-18 06:24] LABS: BASOPHILS % (AUTO) 0.5 % (0-1); EOSINOPHILS # (AUTO) 0.9 X10'3 (0-0.9); EOSINOPHILS % (AUTO) 8.7 % (0-6); HEMATOCRIT 23.7 % (42.0-52.0); HEMOGLOBIN 7.6 g/dl (14.0-17.9); LYMPHOCYTES # (AUTO) 1.2 X10'3 (1.1-4.8); LYMPHOCYTES % (AUTO) 11.4 % (21-51); MEAN CORPUSCULAR HEMOGLOBIN 24.9 PG (27.0-31.0); MEAN CORPUSCULAR HGB CONC 31.9 g/dL (33.0-36.5); MEAN CORPUSCULAR VOLUME 78.2 FL (78-98); MEAN PLATELET VOLUME 7.7 FL (7.4-10.4); MONOCYTES # (AUTO) 1.2 X10'3 (0-0.9); MONOCYTES % (AUTO) 11.5 % (2-12); NEUTROPHILS # (AUTO) 7.1 X10'3 (1.8-7.7); NEUTROPHILS % (AUTO) 67.9 % (42-75); PLATELET COUNT 332 X10'3 (140-440); RED BLOOD COUNT 3.03 X10'6 (4.70-6.10); RED CELL DISTRIBUTION WIDTH 17.1 % (11.5-14.5); WHITE BLOOD COUNT 10.4 X10'3 (4.5-11.0)
--- NOTE | 2018-11-18 06:42 | NUR ---
Problems reprioritized. Patient report given, questions answered & plan of care reviewed with Toribio KAISER.
--- NOTE | 2018-11-18 06:45 | NUR ---
Patient in room [facility] 360. I have received report from Dominga KAISER and had the opportunity to ask questions and assume patient care.
[2018-11-18 07:00] LABS: ALANINE AMINOTRANSFERASE 25 U/L (12-78); ALBUMIN 1.9 G/DL (3.4-5.0); ALBUMIN/GLOBULIN RATIO 0.5 (1.1-1.5); ALKALINE PHOSPHATASE 133 IU/L (46-116); ANION GAP 7 (8-16); ASPARTATE AMINO TRANSFERASE 45 U/L (10-37); BLOOD UREA NITROGEN 30 MG/DL (7-18); BUN/CREATININE RATIO 15.8 (5.4-32.0); CALCIUM 8.1 MG/DL (8.5-10.1); CHLORIDE 105 MMOL/L (99-107); GLUCOSE 101 MG/DL (70-104); MAGNESIUM 2.1 MG/DL (1.5-2.4); PHOSPHORUS 2.9 MG/DL (2.3-4.5); SODIUM 140 MMOL/L (135-145); TOTAL CARBON DIOXIDE 28.2 MMOL/L (24-32); TOTAL PROTEIN 5.9 G/DL (6.4-8.2); eGFR 34 ML/MIN
[2018-11-18 07:48] VITALS: BP 146/56
[2018-11-18] MEDS: aspirin 81mg tablet.DR PO SCH (07:54)
[2018-11-18] MEDS: levoTHYROXINE 125mcg tablet PO SCH (07:54)
[2018-11-18] MEDS: lactobacillus rhamnosus 10,000 MMU CELLS/CAPSULE PO SCH ×2 (07:54→21:15)
[2018-11-18] MEDS: docusate sod 100mg capsule PO SCH ×2 (07:55→21:15)
[2018-11-18] MEDS: metoprolol tartrate 12.5mg (1/2 tablet) PO SCH ×2 (07:55→21:15)
[2018-11-18] MEDS: digoxin 250mcg (0.25mg) tablet PO SCH (07:55)
[2018-11-18] MEDS: pantoprazole 40mg Tablet.DR PO SCH (07:55)
[2018-11-18] MEDS: K, MAG and/or Phos replacement - Verify level? MC SCH (08:00)
[2018-11-18] MEDS: furosemide 20 MG/2 ML vial IV SCH (08:36)
[2018-11-18 11:00] VITALS: BP 146/62
[2018-11-18] MEDS: HYDROcodone/acetaminophen 10/325mg tab PO PRN ×2 (15:02→21:16)
--- NOTE | 2018-11-18 18:30 | NUR ---
Patient in room [facility] 360. I have received report from Toribio KAISER and had the opportunity to ask questions and assume patient care.
--- NOTE | 2018-11-18 18:54 | NUR ---
Problems reprioritized. Patient report given, questions answered & plan of care reviewed with Dominga KAISER.
[2018-11-18 21:04] VITALS: BP 139/48
[2018-11-18] MEDS: atorvastatin 10mg tablet PO SCH (21:14)
[2018-11-19] MEDS: ceFOXitin 2 GM ADDvantage bag 100 ML IV SCH ×3 (00:12→16:21)
[2018-11-19] MEDS: neomycin/polymyxn B/dexameth ophth suspension 5ml LEFTEYE SCH ×6 (00:12→22:07)
[2018-11-19 01:10] VITALS: BP 129/47
[2018-11-19] MEDS: albuterol 2.5 MG/3 ML nebule NEB SCH ×5 (03:41→20:07)
[2018-11-19 05:44] LABS: BASOPHILS # (AUTO) 0.1 X10'3 (0-0.2); BASOPHILS % (AUTO) 0.6 % (0-1); EOSINOPHILS # (AUTO) 0.9 X10'3 (0-0.9); EOSINOPHILS % (AUTO) 9.1 % (0-6); HEMATOCRIT 24.7 % (42.0-52.0); LYMPHOCYTES # (AUTO) 1.2 X10'3 (1.1-4.8); LYMPHOCYTES % (AUTO) 11.9 % (21-51); MEAN CORPUSCULAR HEMOGLOBIN 25.6 PG (27.0-31.0); MEAN CORPUSCULAR HGB CONC 32.4 g/dL (33.0-36.5); MEAN CORPUSCULAR VOLUME 79.2 FL (78-98); MEAN PLATELET VOLUME 7.5 FL (7.4-10.4); MONOCYTES # (AUTO) 1.2 X10'3 (0-0.9); MONOCYTES % (AUTO) 11.3 % (2-12); NEUTROPHILS % (AUTO) 67.1 % (42-75); PLATELET COUNT 381 X10'3 (140-440); RED BLOOD COUNT 3.12 X10'6 (4.70-6.10); RED CELL DISTRIBUTION WIDTH 17.2 % (11.5-14.5); WHITE BLOOD COUNT 10.4 X10'3 (4.5-11.0)
[2018-11-19] MEDS: normal saline 1000ml 1,000 ML IV SCH (06:17)
[2018-11-19 06:22] LABS: ALANINE AMINOTRANSFERASE 25 U/L (12-78); ALBUMIN 1.8 G/DL (3.4-5.0); ALBUMIN/GLOBULIN RATIO 0.4 (1.1-1.5); ALKALINE PHOSPHATASE 149 IU/L (46-116); ANION GAP 7 (8-16); ASPARTATE AMINO TRANSFERASE 41 U/L (10-37); BILIRUBIN,TOTAL 2.1 MG/DL (0.1-1.0); BLOOD UREA NITROGEN 32 MG/DL (7-18); CALCIUM 8.1 MG/DL (8.5-10.1); CHLORIDE 106 MMOL/L (99-107); CREATININE 1.88 MG/DL (0.60-1.10); GLUCOSE 109 MG/DL (70-104); MAGNESIUM 2.2 MG/DL (1.5-2.4); PHOSPHORUS 3.3 MG/DL (2.3-4.5); POTASSIUM 4.1 MMOL/L (3.5-5.1); SODIUM 141 MMOL/L (135-145); TOTAL PROTEIN 5.9 G/DL (6.4-8.2); eGFR 35 ML/MIN
--- NOTE | 2018-11-19 06:46 | NUR ---
Problems reprioritized. Patient report given, questions answered & plan of care reviewed with Heather [facility]AISER.
[2018-11-19 07:00] VITALS: BP 134/66
[2018-11-19] MEDS: K, MAG and/or Phos replacement - Verify level? MC SCH (08:00)
[2018-11-19] MEDS: pantoprazole 40mg Tablet.DR PO SCH (08:03)
[2018-11-19] MEDS: lactobacillus rhamnosus 10,000 MMU CELLS/CAPSULE PO SCH ×2 (08:03→22:07)
[2018-11-19] MEDS: aspirin 81mg tablet.DR PO SCH (08:04)
[2018-11-19] MEDS: levoTHYROXINE 125mcg tablet PO SCH (08:04)
[2018-11-19] MEDS: digoxin 250mcg (0.25mg) tablet PO SCH (08:04)
[2018-11-19] MEDS: docusate sod 100mg capsule PO SCH ×2 (08:04→22:07)
[2018-11-19] MEDS: metoprolol tartrate 12.5mg (1/2 tablet) PO SCH ×2 (08:05→20:00)
[2018-11-19] MEDS: furosemide 20 MG/2 ML vial IV SCH (08:05)
[2018-11-19] MEDS: magnesium hydroxide 30ml (MOM) UD suspension PO PRN (08:38)
[2018-11-19 09:42] LABS: ANISOCYTOSIS 1+; HYPOCHROMASIA 1+; LARGE PLATELETS FEW; MICROCYTOSIS 1+; PLATELET ESTIMATE NORMAL
[2018-11-19 09:43] LABS: POLYCHROMASIA 1+
[2018-11-19 11:24] VITALS: BP 127/46
--- NOTE | 2018-11-19 18:45 | NUR ---
Patient in room [facility] 360. I have received report from Heather KAISER and had the opportunity to ask questions and assume patient care.
[2018-11-19 19:00] VITALS: BP 114/33
--- NOTE | 2018-11-19 19:08 | NUR ---
Problems reprioritized. Patient report given, questions answered & plan of care reviewed with JOB Mcgregor.
[2018-11-19] MEDS: HYDROcodone/acetaminophen 10/325mg tab PO PRN (19:37)
[2018-11-19] MEDS ORDERED: warfarin 2.5mg tablet PO ONE (21:00)
[2018-11-19] MEDS: magnesium hydroxide 30ml (MOM) UD suspension PO SCH (22:08)
[2018-11-19] MEDS: atorvastatin 10mg tablet PO SCH (22:10)
[2018-11-20] VITALS: BP 112/36
[2018-11-20] MEDS: albuterol 2.5 MG/3 ML nebule NEB SCH ×7 (00:01→23:49)
[2018-11-20] MEDS: neomycin/polymyxn B/dexameth ophth suspension 5ml LEFTEYE SCH ×6 (00:12→21:53)
[2018-11-20] MEDS: ceFOXitin 2 GM ADDvantage bag 100 ML IV SCH ×3 (00:12→16:00)
[2018-11-20] MEDS: HYDROcodone/acetaminophen 10/325mg tab PO PRN ×2 (00:19→21:58)
[2018-11-20 06:06] LABS: BASOPHILS # (AUTO) 0.1 X10'3 (0-0.2); BASOPHILS % (AUTO) 0.7 % (0-1); EOSINOPHILS % (AUTO) 8.9 % (0-6); HEMATOCRIT 22.7 % (42.0-52.0); HEMOGLOBIN 7.3 g/dl (14.0-17.9); LYMPHOCYTES # (AUTO) 1.6 X10'3 (1.1-4.8); LYMPHOCYTES % (AUTO) 13.5 % (21-51); MEAN CORPUSCULAR HEMOGLOBIN 25.5 PG (27.0-31.0); MEAN CORPUSCULAR HGB CONC 32.1 g/dL (33.0-36.5); MEAN CORPUSCULAR VOLUME 79.4 FL (78-98); MEAN PLATELET VOLUME 7.5 FL (7.4-10.4); MONOCYTES # (AUTO) 1.4 X10'3 (0-0.9); MONOCYTES % (AUTO) 11.9 % (2-12); NEUTROPHILS # (AUTO) 7.6 X10'3 (1.8-7.7); PLATELET COUNT 387 X10'3 (140-440); RED BLOOD COUNT 2.86 X10'6 (4.70-6.10); RED CELL DISTRIBUTION WIDTH 17.7 % (11.5-14.5); WHITE BLOOD COUNT 11.7 X10'3 (4.5-11.0)
--- NOTE | 2018-11-20 06:13 | NUR ---
Problems reprioritized. Patient report given, questions answered & plan of care reviewed with Leonarda dewitt and adjunct nursing faculty.
[2018-11-20 06:29] LABS: ALANINE AMINOTRANSFERASE 22 U/L (12-78); ALBUMIN 1.7 G/DL (3.4-5.0); ALBUMIN/GLOBULIN RATIO 0.4 (1.1-1.5); ANION GAP 5 (8-16); ASPARTATE AMINO TRANSFERASE 36 U/L (10-37); BILIRUBIN,TOTAL 1.7 MG/DL (0.1-1.0); BLOOD UREA NITROGEN 37 MG/DL (7-18); BUN/CREATININE RATIO 19.2 (5.4-32.0); CALCIUM 8.1 MG/DL (8.5-10.1); CHLORIDE 104 MMOL/L (99-107); CREATININE 1.93 MG/DL (0.60-1.10); GLUCOSE 94 MG/DL (70-104); MAGNESIUM 2.5 MG/DL (1.5-2.4); PHOSPHORUS 3.1 MG/DL (2.3-4.5); POTASSIUM 4.2 MMOL/L (3.5-5.1); SODIUM 139 MMOL/L (135-145); TOTAL CARBON DIOXIDE 30.4 MMOL/L (24-32); TOTAL PROTEIN 5.6 G/DL (6.4-8.2); eGFR 34 ML/MIN
[2018-11-20 07:21] LABS: ALKALINE PHOSPHATASE 148 IU/L (46-116)
[2018-11-20] MEDS: K, MAG and/or Phos replacement - Verify level? MC SCH (08:00)
[2018-11-20] MEDS: lactobacillus rhamnosus 10,000 MMU CELLS/CAPSULE PO SCH ×2 (08:11→21:53)
[2018-11-20] MEDS: metoprolol tartrate 12.5mg (1/2 tablet) PO SCH ×2 (08:11→23:28)
[2018-11-20] MEDS: levoTHYROXINE 125mcg tablet PO SCH (08:11)
[2018-11-20] MEDS: aspirin 81mg tablet.DR PO SCH (08:11)
[2018-11-20] MEDS: digoxin 250mcg (0.25mg) tablet PO SCH (08:11)
[2018-11-20] MEDS: docusate sod 100mg capsule PO SCH ×2 (08:12→21:53)
[2018-11-20] MEDS: furosemide 20 MG/2 ML vial IV SCH (08:12)
[2018-11-20] MEDS: pantoprazole 40mg Tablet.DR PO SCH (08:12)
[2018-11-20] MEDS: magnesium hydroxide 30ml (MOM) UD suspension PO SCH ×2 (08:13→21:50)
--- NOTE | 2018-11-20 11:48 | NUR ---
I have reviewed and agree with all medications administered and interventions performed by [facility] Student(TRINH) Addendum: 11/20/18 at 1149 by Zully [address] RT Amended: Links added.
--- NOTE | 2018-11-20 14:56 | NUR ---
Reassessment: Pt currently with wound VAC to right groin. Attempted visit with pt at bedside however pt sleeping and did not wake with verbal cues. Written protein education with RD contact information left at patient's bedside. Pt continues on CHO controlled diet, documented PO intake slightly decreased to averaging 50% however back up to averaging 75% likely closely meeting nutrient needs at this time. LBM still 11/11, pt receiving routine Colace and Reglan. D/w dietary to send power pudding with dinner tonight. Will continue to follow. Rec: 1. continue carb controlled diet 2. monitor need for ONS/additional protein 3. routine bowel care 4. wt per rx Addendum: 11/20/18 at [address] Amended: Links added.
[2018-11-20 18:00] VITALS: BP 131/46
--- NOTE | 2018-11-20 18:30 | NUR ---
Patient in room [facility] 360. I have received report from Emani KAISER and had the opportunity to ask questions and assume patient care.
[2018-11-20] MEDS ORDERED: warfarin 3mg tablet PO ONE (21:00)
[2018-11-20] MEDS ORDERED: magnesium citrate 296ml oral solution PO ONE (21:15)
[2018-11-20] MEDS ORDERED: furosemide 20 MG/2 ML vial IV ONE (21:35)
[2018-11-20] MEDS: atorvastatin 10mg tablet PO SCH (21:54)
[2018-11-21] VITALS: BP 117/36
[2018-11-21] MEDS: neomycin/polymyxn B/dexameth ophth suspension 5ml LEFTEYE SCH ×5 (01:07→16:16)
[2018-11-21] MEDS: ceFOXitin 2 GM ADDvantage bag 100 ML IV SCH ×3 (01:07→16:00)
[2018-11-21] MEDS: HYDROcodone/acetaminophen 10/325mg tab PO PRN (01:30)
[2018-11-21] MEDS: albuterol 2.5 MG/3 ML nebule NEB SCH ×4 (03:14→15:38)
[2018-11-21 06:20] LABS: BASOPHILS # (AUTO) 0.1 X10'3 (0-0.2); BASOPHILS % (AUTO) 0.5 % (0-1); EOSINOPHILS # (AUTO) 0.8 X10'3 (0-0.9); EOSINOPHILS % (AUTO) 7.9 % (0-6); HEMATOCRIT 24.4 % (42.0-52.0); HEMOGLOBIN 7.9 g/dl (14.0-17.9); LYMPHOCYTES # (AUTO) 1.2 X10'3 (1.1-4.8); LYMPHOCYTES % (AUTO) 10.9 % (21-51); MEAN CORPUSCULAR HEMOGLOBIN 25.5 PG (27.0-31.0); MEAN CORPUSCULAR HGB CONC 32.3 g/dL (33.0-36.5); MEAN CORPUSCULAR VOLUME 78.9 FL (78-98); MEAN PLATELET VOLUME 7.3 FL (7.4-10.4); MONOCYTES # (AUTO) 1.1 X10'3 (0-0.9); MONOCYTES % (AUTO) 10.4 % (2-12); NEUTROPHILS # (AUTO) 7.4 X10'3 (1.8-7.7); NEUTROPHILS % (AUTO) 70.3 % (42-75); PLATELET COUNT 428 X10'3 (140-440); RED BLOOD COUNT 3.09 X10'6 (4.70-6.10); RED CELL DISTRIBUTION WIDTH 17.5 % (11.5-14.5); WHITE BLOOD COUNT 10.6 X10'3 (4.5-11.0)
--- NOTE | 2018-11-21 06:24 | NUR ---
Patient was very time consuming last night (thru no fault of his own). We helped patient up to ambulate and he only managed around 50ft using FWW and 2x SBA. Patient stated that he felt that his left leg was going to give out. Patient had to be taken back to room on the sit to stand. Patient drank all the mag citrate and spent time sitting on BSC to only manage passing gas. Drainage when standing up coming out of wound vac dressing despite reinforcement. Wound vac kept alarming stating blockage. Eventually wound vac had to be removed and absorbent wound dressings applied with an abdominal pad placed over, and mesh panties placed on in order to help hold in place. Patient very tolerant and gracious. Addendum: 11/21/18 at 0736 by Meche Sung RN Patient also anxiously awaiting meeting scheduled today with Juhi and Dr Gomez.
[2018-11-21 06:40] LABS: ALANINE AMINOTRANSFERASE 22 U/L (12-78); ALBUMIN 1.8 G/DL (3.4-5.0); ALBUMIN/GLOBULIN RATIO 0.4 (1.1-1.5); ALKALINE PHOSPHATASE 171 IU/L (46-116); ANION GAP 6 (8-16); ASPARTATE AMINO TRANSFERASE 39 U/L (10-37); BILIRUBIN,TOTAL 1.4 MG/DL (0.1-1.0); BLOOD UREA NITROGEN 39 MG/DL (7-18); BUN/CREATININE RATIO 20.2 (5.4-32.0); CALCIUM 8.3 MG/DL (8.5-10.1); CHLORIDE 104 MMOL/L (99-107); CREATININE 1.93 MG/DL (0.60-1.10); GLUCOSE 116 MG/DL (70-104); MAGNESIUM 3.3 MG/DL (1.5-2.4); POTASSIUM 4.5 MMOL/L (3.5-5.1); SODIUM 139 MMOL/L (135-145); TOTAL CARBON DIOXIDE 29.5 MMOL/L (24-32); TOTAL PROTEIN 6.1 G/DL (6.4-8.2); eGFR 34 ML/MIN
--- NOTE | 2018-11-21 06:42 | NUR ---
Reported off to Roxana KAISER.
--- NOTE | 2018-11-21 07:07 | NUR ---
Patient in room [facility] 360. I have received report from Meche KAISER and had the opportunity to ask questions and assume patient care.
[2018-11-21 07:57] VITALS: BP 110/50
[2018-11-21] MEDS: K, MAG and/or Phos replacement - Verify level? MC SCH (08:00)
[2018-11-21] MEDS: levoTHYROXINE 125mcg tablet PO SCH (08:42)
[2018-11-21] MEDS: digoxin 250mcg (0.25mg) tablet PO SCH (08:42)
[2018-11-21] MEDS: metoprolol tartrate 12.5mg (1/2 tablet) PO SCH (08:42)
[2018-11-21] MEDS: pantoprazole 40mg Tablet.DR PO SCH (08:42)
[2018-11-21] MEDS: magnesium hydroxide 30ml (MOM) UD suspension PO SCH (08:43)
[2018-11-21] MEDS: furosemide 20 MG/2 ML vial IV SCH (08:43)
[2018-11-21] MEDS: aspirin 81mg tablet.DR PO SCH (08:43)
[2018-11-21] MEDS: docusate sod 100mg capsule PO SCH (08:43)
[2018-11-21] MEDS: lactobacillus rhamnosus 10,000 MMU CELLS/CAPSULE PO SCH (08:43)
[2018-11-21] MEDS: normal saline 1000ml 1,000 ML IV SCH (08:53)
[2018-11-21] MEDS ORDERED: polyethylene glycol 3350 17gm powd pack PO ONE (10:10)
[2018-11-21] MEDS ORDERED: AMOX-422 PO (10:12)
[2018-11-21 11:50] VITALS: BP 125/45
--- NOTE | 2018-11-21 14:04 | NUR ---
WOUND VAC EDUCATION PROVIDED BY WOUND CARE 1. Patient instructed to call the Wound Center or their Home Health Agency immediately if: * They notice a change in the color or amount of the fluid in the canister. * Their wound looks more red than usual or has a foul smell. * The skin around their wound looks reddened or irritated. * The dressing feels loose or appears to be loose. * They experience any increase or changes in their pain. * The alarm will not turn off. 2. Patient instructed that they should not be disconnected from suction for more than 2 hours at a time. * If they are not able to get the suction back on, they need to remove the dressing and take all of the foam out of the wound. * Then moisten sterile gauze with normal saline and place on/in the wound. * Change the dressing once a day until arrangements have been made to replace the wound vac dressing. 3. Patient instructed to turn the wound vac machine OFF and call 911 or go to the ED immediately if their canister fills rapidly with blood. 4. If any of these occur while in the hospital tell a nurse immediately. Addendum: 11/21/18 at 1404 by Temitope Crow RN Amended: Links added.
[2018-11-21] MEDS ORDERED: lactulose 20gm/30ml cup PO ONE (14:05)
[2018-11-21] MEDS ORDERED: COU4T PO (14:38)
--- NOTE | 2018-11-21 17:23 | NUR ---
Patient discharged with all belongings. Patient sent home with home wound vac, set up prior to discharge. IV taken out. Home meds returned to pt. to take pt home.
[2018-11-21] MEDS ORDERED: warfarin 4mg tablet PO ONE (21:00)
== END 2018-11-21 17:26 | disposition home health service (06) | DRG 252 ==
LOC: SSTAY O 06:50 → CICU 2S 18:31 → SUR 3N 11-15 12:50
PROVIDERS: ADMIT Internal Medicine Cardiovascular Disease; ATTEND Internal Medicine
PROC: 04UK0KZ Supplement Right Femoral Artery with Nonautologous Tissue Substitute, Open Approach (ICD-10-PCS; 2018-11-12)
PROC: 3E05317 Introduction of Other Thrombolytic into Peripheral Artery, Percutaneous Approach (ICD-10-PCS; 2018-11-12)
PROC: 04QK0ZZ Repair Right Femoral Artery, Open Approach (ICD-10-PCS; 2018-11-12)
PROC: 3E05317 Introduction of Other Thrombolytic into Peripheral Artery, Percutaneous Approach (ICD-10-PCS; 2018-11-12)
PROC: 04CK0ZZ Extirpation of Matter from Right Femoral Artery, Open Approach (ICD-10-PCS; principal; 2018-11-12 19:14)
PROC: 4A023N8 Measurement of Cardiac Sampling and Pressure, Bilateral, Percutaneous Approach (ICD-10-PCS; 2018-11-15)
PROC: 4A023N8 Measurement of Cardiac Sampling and Pressure, Bilateral, Percutaneous Approach (ICD-10-PCS; 2018-11-15)
PROC: B3101ZZ Fluoroscopy of Thoracic Aorta using Low Osmolar Contrast (ICD-10-PCS; 2018-11-15)
PROC: B2151ZZ Fluoroscopy of Left Heart using Low Osmolar Contrast (ICD-10-PCS; 2018-11-15)
PROC: B2181ZZ Fluoroscopy of Left Internal Mammary Bypass Graft using Low Osmolar Contrast (ICD-10-PCS; 2018-11-15)
PROC: B2131ZZ Fluoroscopy of Multiple Coronary Artery Bypass Grafts using Low Osmolar Contrast (ICD-10-PCS; 2018-11-15)
PROC: 30233N1 Transfusion of Nonautologous Red Blood Cells into Peripheral Vein, Percutaneous Approach (ICD-10-PCS; 2018-11-17)
DX: T81.718A Complication of other artery following a procedure, not elsewhere classified, initial encounter (principal); N17.0 Acute kidney failure with tubular necrosis; I25.10 Atherosclerotic heart disease of native coronary artery without angina pectoris; D64.9 Anemia, unspecified; E03.9 Hypothyroidism, unspecified; E11.22 Type 2 diabetes mellitus with diabetic chronic kidney disease; E11.51 Type 2 diabetes mellitus with diabetic peripheral angiopathy without gangrene; E66.9 Obesity, unspecified; E78.5 Hyperlipidemia, unspecified; Y84.0 Cardiac catheterization as the cause of abnormal reaction of the patient, or of later complication, without mention of misadventure at the time of the procedure; I13.10 Hypertensive heart and chronic kidney disease without heart failure, with stage 1 through stage 4 chronic kidney disease, or unspecified chronic kidney disease; I48.2 Chronic atrial fibrillation; Z96.659 Presence of unspecified artificial knee joint; N18.9 Chronic kidney disease, unspecified; M19.90 Unspecified osteoarthritis, unspecified site; Z79.82 Long term (current) use of aspirin; Z68.39 Body mass index [BMI] 39.0-39.9, adult; Z79.01 Long term (current) use of anticoagulants; Z82.49 Family history of ischemic heart disease and other diseases of the circulatory system; Z83.3 Family history of diabetes mellitus; Z87.891 Personal history of nicotine dependence; Z90.49 Acquired absence of other specified parts of digestive tract; Z95.1 Presence of aortocoronary bypass graft; Z82.5 Family history of asthma and other chronic lower respiratory diseases; Y92.89 Other specified places as the place of occurrence of the external cause
CPT/HCPCS: 36002; 36415; 71045; 73700; 74176; 80048; 80053; 80162; 81001; 82803; 82948; 83036; 83540; 83735; 83880; 84100; 84443; 85014; 85025; 85027; 85610; 85730; 86885; 86900; 86901; 86920; 87081; 87088; 87207; 88300; 88304; 93005; 93459; 93567; 93926; 94640; 94667; 94668; 94760; 97110; 97112; 97116; 97161; 97530; 99152; 99153; A4618; A4620; A5120; A6258; A6455; A7000; C1713; C1768; C1769; C1894; G0378; J0360; J0690; J0694; J1170; J1265; J1644; J1940; J2001; J2250; J2270; J2704; J2710; J3010; J3370; J3480; J3490; J7030; J7040; J7120; P9016; P9045; Q0163; Q9967

== ENCOUNTER 2018-12-05 07:44 | Observation (INO) | payer MEDICARE, OTHER ==
[2018-12-05] VITALS (19 sets, daily range): BP systolic 136–193; BP diastolic 51–94
[~2018-12-05] VITALS: Ht 165.1 cm; Wt 100.0 kg
[~2018-12-05 07:44] MED LIST changes: -COU5T PO; +DOCUMENT DATE & TIME OF BETA-BLOCKER PO ONE; +MESSAGE TO NURSING PO ONE; +NEO/5DRO3 LEFTEYE; -SAXA5TAB PO; +TRAM1TAB7 PO; -WARF-55 PO; +famotidine 20mg tablet PO ONE
[2018-12-05] MEDS ORDERED: cefazolin/dext.iso 2gm/50ml 50 ML IV ONE (09:13)
[2018-12-05] MEDS: ringers solution, lacted 1,000 ML IV SCH ×2 (09:44→16:30)
[2018-12-05 10:25] LABS: BASOPHILS # (AUTO) 0.1 X10'3 (0-0.2); BASOPHILS % (AUTO) 0.6 % (0-1); EOSINOPHILS # (AUTO) 0.3 X10'3 (0-0.9); EOSINOPHILS % (AUTO) 3.1 % (0-6); LYMPHOCYTES # (AUTO) 1.3 X10'3 (1.1-4.8); LYMPHOCYTES % (AUTO) 15.5 % (21-51); MEAN CORPUSCULAR HEMOGLOBIN 24.7 PG (27.0-31.0); MEAN CORPUSCULAR HGB CONC 31.4 g/dL (33.0-36.5); MEAN CORPUSCULAR VOLUME 78.6 FL (78-98); MEAN PLATELET VOLUME 7.9 FL (7.4-10.4); MONOCYTES % (AUTO) 11.9 % (2-12); NEUTROPHILS # (AUTO) 5.6 X10'3 (1.8-7.7); NEUTROPHILS % (AUTO) 68.9 % (42-75); PRE OP HEMATOCRIT 28.1 % (42.0-52.0); PRE OP PLATELET COUNT 288 X10'3 (140-440); RED BLOOD COUNT 3.58 X10'6 (4.70-6.10); RED CELL DISTRIBUTION WIDTH 18.5 % (11.5-14.5)
[2018-12-05 10:29] LABS: PRE OP HEMOGLOBIN 8.8 g/dL (14.0-17.9)
[2018-12-05 10:37] LABS: PRE OP PARTIAL THROMB. TIME 34 SECONDS (22-32)
[2018-12-05 10:38] LABS: ALBUMIN 2.2 G/DL (3.4-5.0); ALBUMIN/GLOBULIN RATIO 0.5 (1.1-1.5); ALKALINE PHOSPHATASE 176 IU/L (46-116); BLOOD UREA NITROGEN 25 MG/DL (7-18); BUN/CREATININE RATIO 15.7 (5.4-32.0); CALCIUM 7.6 MG/DL (8.5-10.1); CHLORIDE 109 MMOL/L (99-107); CREATININE 1.59 MG/DL (0.60-1.10); PRE OP ALT 51 U/L (30-65); PRE OP ANION GAP 6 (8-16); PRE OP AST 44 U/L (10-37); PRE OP BILIRUB, TOTAL 0.8 MG/DL (0.0-1.0); PRE OP GLUCOSE 104 MG/DL (70-104); PRE OP POTASSIUM 4.1 MMOL/L (3.4-5.1); PRE OP SODIUM 142 MMOL/L (135-145); TOTAL PROTEIN 6.9 G/DL (6.4-8.2); eGFR 42 ML/MIN
[2018-12-05] MEDS ORDERED: ringers solution, lacted 1,000 ML IV SCH (11:17)
[2018-12-05] MEDS ORDERED: meperidine/PF 25mg/ml syringe IV PRN ×3 (11:20)
[2018-12-05] MEDS ORDERED: proCHLORperazine 10 MG/2 ml inj IV PRN (11:20)
[2018-12-05] MEDS ORDERED: morphine 4 MG/ML inj SYRINge IV PRN ×2 (11:20)
[2018-12-05] MEDS ORDERED: ondansetron/PF 4mg/2ml inj IV PRN ×2 (11:20→14:35)
[2018-12-05] MEDS ORDERED: neostigmine methylsulfate 1 MG/ML 10ml vial ONE (13:30)
[2018-12-05] MEDS ORDERED: ondansetron/PF 4mg/2ml inj ONE (13:30)
[2018-12-05] MEDS ORDERED: desflurane 240ml liquid inh. IH ONE (13:30)
[2018-12-05] MEDS ORDERED: LIDOcaine 1%/PF 5ML 10 MG/ML VIAL ONE (13:30)
[2018-12-05] MEDS ORDERED: fentaNYL/PF 50MCG/1 ML 2ML syringe ONE (13:37)
[2018-12-05] MEDS ORDERED: midazolam 2 mg/2 ml injection ONE (13:37)
[2018-12-05] MEDS ORDERED: etomidate 2mg/ml inj. ONE (13:39)
[2018-12-05] MEDS: Potassium Cl inj 20 MEQ in ringers solution, lacted 1,000 ML IV SCH ×2 (14:32→19:00)
[2018-12-05] MEDS ORDERED: glycopyrrolate 0.2mg/ml inj ONE (14:34)
--- NOTE | 2018-12-05 14:40 | NUR ---
Received from OR via BED , accompanied by Anesthesiologist DR ANDRES and report given by Anesthesiolgist. PATIENT A&OX4, DENIES PAIN, V/S WNL, CSM INTACT, SCD ON, DRESSING TO RIGHT GROIN CDI WITH WV AT 125 CONTINOUS SUCTION WITH NO LEAKS DETECTED.
--- NOTE | 2018-12-05 16:00 | NUR ---
Got report from JOB Trivedi from recovery, patient stable vitals good
--- NOTE | 2018-12-05 16:10 | NUR ---
PATIENT A&OX4, DENIES PAIN, V/S WNL, CSM INTACT, SCD ON, DRESSING TO RIGHT GROIN CDI WITH WV AT 125 CONTINOUS SUCTION WITH NO LEAKS DETECTED. PATIENT PUT ON TELE AND TAKEN TO 344B WITH ALL BELONGIGNS AND HOOKED UP TOP MONITORS IN ROOM AND REPOORT GIVEN TO EDUCATIONAL TECHNICIAN WHO HAS TAKEN OVER PATIENT CARE.
[2018-12-05] MEDS: piperacillin/tazo 3.375gm/50ml 50 ML IV SCH (17:22)
[2018-12-05] MEDS: HYDROcodone/acetaminophen 10/325mg tab PO PRN (17:23)
--- NOTE | 2018-12-05 19:02 | NUR ---
Problems reprioritized. Patient report given, questions answered & plan of care reviewed with Nyasia KAISER.
[2018-12-05] MEDS ORDERED: nitroGLYCERIN 0.4mg SUBLingual tab SL PRN (19:05)
[2018-12-05] MEDS ORDERED: TRAMADOL HCL PO SCH (20:00)
[2018-12-05] MEDS ORDERED: ACETAMINOPHEN PO SCH (20:00)
[2018-12-05] MEDS: atorvastatin 10mg tablet PO SCH (20:34)
[2018-12-05] MEDS: metoprolol tartrate 25mg tablet PO SCH (20:35)
[2018-12-05] MEDS: neomycin/polymyxn B/dexameth ophth suspension 5ml LEFTEYE SCH ×2 (21:48→23:27)
--- NOTE | 2018-12-05 22:07 | NUR ---
Pt states just ate icecream. pt does not want any insulin. Addendum: 12/05/18 at 2208 by Ovi Barone RN Amended: Links added.
[2018-12-06] VITALS: BP 148/50
[2018-12-06] MEDS: piperacillin/tazo 3.375gm/50ml 50 ML IV SCH ×3 (00:16→15:20)
--- NOTE | 2018-12-06 00:30 | NUR ---
Tele called with a report of pts HR in the 40s. Into assess pt and he is sleeping soundly, at bedside stated at home he does go in to the 40s while he sleeps and that he normally has a Cpap on for sleep apea as well as some O2 as needed. Pt requested some oxygen while sleeping and VS HR 51, 02 96% 2 L, 147/67. Addendum: 12/06/18 at 0555 by Nyasia Anand RN Amended: Links added.
[2018-12-06] MEDS: neomycin/polymyxn B/dexameth ophth suspension 5ml LEFTEYE SCH ×5 (03:46→20:00)
[2018-12-06] MEDS: Potassium Cl inj 20 MEQ in ringers solution, lacted 1,000 ML IV SCH ×3 (03:47→23:08)
[2018-12-06 06:24] LABS: ANION GAP 7 (8-16); BLOOD UREA NITROGEN 25 MG/DL (7-18); BUN/CREATININE RATIO 16.6 (5.4-32.0); CALCIUM 7.6 MG/DL (8.5-10.1); CHLORIDE 108 MMOL/L (99-107); CREATININE 1.51 MG/DL (0.60-1.10); GLUCOSE 136 MG/DL (70-104); SODIUM 140 MMOL/L (135-145); eGFR 45 ML/MIN
--- NOTE | 2018-12-06 06:30 | NUR ---
Patient in room [facility] 344. I have received report from JOB Murrell and had the opportunity to ask questions and assume patient care.
--- NOTE | 2018-12-06 06:34 | NUR ---
Problems reprioritized. Patient report given, questions answered & plan of care reviewed with Nidia Rutherford. Addendum: 12/06/18 at 0634 by Nyasia Anand RN Amended: Links added.
[2018-12-06 06:50] LABS: BASOPHILS % (AUTO) 0.4 % (0-1); EOSINOPHILS % (AUTO) 0 % (0-6); HEMATOCRIT 27.4 % (42.0-52.0); HEMOGLOBIN 8.7 g/dl (14.0-17.9); LYMPHOCYTES # (AUTO) 0.6 X10'3 (1.1-4.8); LYMPHOCYTES % (AUTO) 10.3 % (21-51); MEAN CORPUSCULAR HGB CONC 31.9 g/dL (33.0-36.5); MEAN CORPUSCULAR VOLUME 78.3 FL (78-98); MEAN PLATELET VOLUME 8.3 FL (7.4-10.4); MONOCYTES # (AUTO) 0.5 X10'3 (0-0.9); MONOCYTES % (AUTO) 8.2 % (2-12); NEUTROPHILS # (AUTO) 5.1 X10'3 (1.8-7.7); NEUTROPHILS % (AUTO) 81.1 % (42-75); PLATELET COUNT 249 X10'3 (140-440); WHITE BLOOD COUNT 6.2 X10'3 (4.5-11.0)
[2018-12-06 07:23] VITALS: BP 153/63
[2018-12-06] MEDS: levoTHYROXINE 125mcg tablet PO SCH (07:32)
[2018-12-06] MEDS: HYDROcodone/acetaminophen 10/325mg tab PO PRN (07:32)
[2018-12-06] MEDS: aspirin 81mg tablet.DR PO SCH (07:32)
[2018-12-06] MEDS: furosemide 40mg tablet PO SCH (07:33)
[2018-12-06] MEDS: metoprolol tartrate 25mg tablet PO SCH (07:55)
[2018-12-06] MEDS ORDERED: digoxin 250mcg (0.25mg) tablet PO SCH (08:00)
[2018-12-06 10:48] VITALS: BP 167/48
[2018-12-06] MEDS ORDERED: metoprolol tartrate 12.5mg (1/2 tablet) PO SCH (11:37)
--- NOTE | 2018-12-06 18:10 | NUR ---
Patient in room [facility] 344. I have received report from JOB Banuelos and had the opportunity to ask questions and assume patient care. Addendum: 12/06/18 at 1858 by Mackenzie Ernst RN Patient in room [facility] 344. I have received report from JOB Jacob and had the opportunity to ask questions and assume patient care.
--- NOTE | 2018-12-06 18:38 | NUR ---
Problems reprioritized. Patient report given, questions answered & plan of care reviewed with JOB Murrell.
[2018-12-06 19:00] VITALS: BP 116/63
[2018-12-06] MEDS: lactobacillus rhamnosus 10,000 MMU CELLS/CAPSULE PO SCH (19:50)
[2018-12-06] MEDS: atorvastatin 10mg tablet PO SCH (21:12)
[2018-12-07] MEDS: piperacillin/tazo 3.375gm/50ml 50 ML IV SCH ×2 (00:03→07:22)
[2018-12-07 00:55] VITALS: BP 159/54
[2018-12-07] MEDS: neomycin/polymyxn B/dexameth ophth suspension 5ml LEFTEYE SCH ×3 (03:16→08:00)
[2018-12-07 05:51] LABS: BASOPHILS # (AUTO) 0.1 X10'3 (0-0.2); BASOPHILS % (AUTO) 0.9 % (0-1); EOSINOPHILS # (AUTO) 0.2 X10'3 (0-0.9); EOSINOPHILS % (AUTO) 1.7 % (0-6); HEMATOCRIT 27.3 % (42.0-52.0); HEMOGLOBIN 8.6 g/dl (14.0-17.9); LYMPHOCYTES # (AUTO) 1.3 X10'3 (1.1-4.8); LYMPHOCYTES % (AUTO) 13.5 % (21-51); MEAN CORPUSCULAR HEMOGLOBIN 24.7 PG (27.0-31.0); MEAN CORPUSCULAR HGB CONC 31.6 g/dL (33.0-36.5); MEAN CORPUSCULAR VOLUME 78.4 FL (78-98); MEAN PLATELET VOLUME 7.8 FL (7.4-10.4); MONOCYTES # (AUTO) 0.8 X10'3 (0-0.9); NEUTROPHILS # (AUTO) 7.3 X10'3 (1.8-7.7); NEUTROPHILS % (AUTO) 75.9 % (42-75); PLATELET COUNT 281 X10'3 (140-440); RED BLOOD COUNT 3.48 X10'6 (4.70-6.10); RED CELL DISTRIBUTION WIDTH 18.1 % (11.5-14.5); WHITE BLOOD COUNT 9.6 X10'3 (4.5-11.0)
[2018-12-07 05:58] LABS: ALBUMIN 2.2 G/DL (3.4-5.0); ANION GAP 5 (8-16); BLOOD UREA NITROGEN 25 MG/DL (7-18); BUN/CREATININE RATIO 16.3 (5.4-32.0); CALCIUM 7.9 MG/DL (8.5-10.1); CHLORIDE 108 MMOL/L (99-107); CREATININE 1.53 MG/DL (0.60-1.10); GLUCOSE 101 MG/DL (70-104); POTASSIUM 4.5 MMOL/L (3.5-5.1); SODIUM 140 MMOL/L (135-145); TOTAL CARBON DIOXIDE 27.5 MMOL/L (24-32); eGFR 44 ML/MIN
--- NOTE | 2018-12-07 06:33 | NUR ---
Problems reprioritized. Patient report given, questions answered & plan of care reviewed with JOB Jacob.
--- NOTE | 2018-12-07 06:42 | NUR ---
Patient in room [facility] 344. I have received report from JOB TORRES and had the opportunity to ask questions and assume patient care.
[2018-12-07] MEDS: Potassium Cl inj 20 MEQ in ringers solution, lacted 1,000 ML IV SCH (07:22)
[2018-12-07] MEDS: levoTHYROXINE 125mcg tablet PO SCH (07:22)
[2018-12-07] MEDS: lactobacillus rhamnosus 10,000 MMU CELLS/CAPSULE PO SCH (07:23)
[2018-12-07] MEDS: aspirin 81mg tablet.DR PO SCH (07:23)
[2018-12-07] MEDS: furosemide 40mg tablet PO SCH (07:25)
[2018-12-07 07:35] VITALS: BP 144/57
[2018-12-07] MEDS ORDERED: digoxin 125mcg (0.125mg) tablet PO SCH (08:00)
[2018-12-07] MEDS ORDERED: DIGO125T PO (09:36)
[2018-12-07 11:00] VITALS: BP 150/52
--- NOTE | 2018-12-07 11:57 | NUR ---
Discussed with patient with spouse at bedside discharge instructions and changes to home meds and new prescription for digoxin. patient and spouse verbalize understanding of teach. Change wound vac to patient's home wound vac. Patient and spouse states they have home health that will be going to their home tomorrow (Saturday). Patient discharged with all personal belongings and was alert and oriented at time of discharge with no complaints.
== END 2018-12-07 11:47 | disposition home or self-care (01) ==
LOC: PAS 07:44 → SUR 3N 16:25
PROVIDERS: ADMIT Surgery; ATTEND Surgery
DX: T81.31XS Disruption of external operation (surgical) wound, not elsewhere classified, sequela (principal); I25.10 Atherosclerotic heart disease of native coronary artery without angina pectoris; I48.20 Chronic atrial fibrillation, unspecified; E11.22 Type 2 diabetes mellitus with diabetic chronic kidney disease; N18.9 Chronic kidney disease, unspecified; E78.5 Hyperlipidemia, unspecified; E11.65 Type 2 diabetes mellitus with hyperglycemia; E11.51 Type 2 diabetes mellitus with diabetic peripheral angiopathy without gangrene; E03.9 Hypothyroidism, unspecified; M19.90 Unspecified osteoarthritis, unspecified site; Z95.1 Presence of aortocoronary bypass graft; Z96.659 Presence of unspecified artificial knee joint; Z90.49 Acquired absence of other specified parts of digestive tract; Z79.02 Long term (current) use of antithrombotics/antiplatelets; Z79.82 Long term (current) use of aspirin; Z79.899 Other long term (current) drug therapy; X58.XXXA Exposure to other specified factors, initial encounter; Y92.89 Other specified places as the place of occurrence of the external cause
CPT/HCPCS: 11042; 36415; 80048; 80053; 82948; 83880; 85025; 85610; 85730; 86885; 86900; 86901; 86920; 87070; 87075; 87077; 87186; 96361; 96365; 96366; G0378; J2250; J2405; J2543; J2710; J3010; J3480; J7030; A4618; A6550; A7000; J3490; J7120

== ENCOUNTER 2018-12-23 08:45 | Day surgery (SDC) | payer MEDICARE, OTHER ==
[~2018-12-23 08:45] MED LIST changes: +DIGO125T PO; -DOCUMENT DATE & TIME OF BETA-BLOCKER PO ONE; -MESSAGE TO NURSING PO ONE; -METO25TA6 PO; -famotidine 20mg tablet PO ONE
[2018-12-23] MEDS ORDERED: LIDOcaine 2% 5ml jelly ONE (10:03)
== END 2018-12-23 11:21 | disposition home or self-care (01) ==
LOC: WOUND CARE 08:45
PROVIDERS: ATTEND Surgery
DX: T81.89XA Other complications of procedures, not elsewhere classified, initial encounter (principal); E11.65 Type 2 diabetes mellitus with hyperglycemia; E11.51 Type 2 diabetes mellitus with diabetic peripheral angiopathy without gangrene; E11.22 Type 2 diabetes mellitus with diabetic chronic kidney disease; I13.10 Hypertensive heart and chronic kidney disease without heart failure, with stage 1 through stage 4 chronic kidney disease, or unspecified chronic kidney disease; N18.9 Chronic kidney disease, unspecified; I25.10 Atherosclerotic heart disease of native coronary artery without angina pectoris; I25.2 Old myocardial infarction; M19.90 Unspecified osteoarthritis, unspecified site; I48.20 Chronic atrial fibrillation, unspecified; E78.5 Hyperlipidemia, unspecified; E03.9 Hypothyroidism, unspecified; E66.9 Obesity, unspecified; Z79.01 Long term (current) use of anticoagulants; Z86.73 Personal history of transient ischemic attack (TIA), and cerebral infarction without residual deficits; Z90.49 Acquired absence of other specified parts of digestive tract; Z79.02 Long term (current) use of antithrombotics/antiplatelets; Z79.82 Long term (current) use of aspirin; Z79.899 Other long term (current) drug therapy; Z95.1 Presence of aortocoronary bypass graft; Z96.659 Presence of unspecified artificial knee joint; Z86.718 Personal history of other venous thrombosis and embolism; Z87.891 Personal history of nicotine dependence; Z68.39 Body mass index [BMI] 39.0-39.9, adult; Y83.8 Other surgical procedures as the cause of abnormal reaction of the patient, or of later complication, without mention of misadventure at the time of the procedure
CPT/HCPCS: 11042; 11045; 36416; 82948; 97605; A6222; A4663

== ENCOUNTER 2018-12-31 10:30 | Day surgery (SDC) | payer MEDICARE, OTHER ==
[2018-12-31] MEDS ORDERED: LIDOcaine 2% 5ml jelly ONE (11:37)
[2018-12-31] MEDS ORDERED: LIDOcaine/PRILOcaine 5gm cream TP ONE (11:37)
== END 2018-12-31 12:17 | disposition home or self-care (01) ==
LOC: WOUND CARE 10:30
PROVIDERS: ATTEND Surgery
DX: T81.89XD Other complications of procedures, not elsewhere classified, subsequent encounter (principal); E11.65 Type 2 diabetes mellitus with hyperglycemia; E11.51 Type 2 diabetes mellitus with diabetic peripheral angiopathy without gangrene; E11.22 Type 2 diabetes mellitus with diabetic chronic kidney disease; I13.10 Hypertensive heart and chronic kidney disease without heart failure, with stage 1 through stage 4 chronic kidney disease, or unspecified chronic kidney disease; N18.9 Chronic kidney disease, unspecified; I25.10 Atherosclerotic heart disease of native coronary artery without angina pectoris; I25.2 Old myocardial infarction; M19.90 Unspecified osteoarthritis, unspecified site; I48.20 Chronic atrial fibrillation, unspecified; E78.5 Hyperlipidemia, unspecified; E03.9 Hypothyroidism, unspecified; E66.9 Obesity, unspecified; Z79.01 Long term (current) use of anticoagulants; Z86.73 Personal history of transient ischemic attack (TIA), and cerebral infarction without residual deficits; Z90.49 Acquired absence of other specified parts of digestive tract; Z79.02 Long term (current) use of antithrombotics/antiplatelets; Z79.82 Long term (current) use of aspirin; Z79.899 Other long term (current) drug therapy; Z95.1 Presence of aortocoronary bypass graft; Z96.659 Presence of unspecified artificial knee joint; Z86.718 Personal history of other venous thrombosis and embolism; Z87.891 Personal history of nicotine dependence; Z68.39 Body mass index [BMI] 39.0-39.9, adult; Y83.8 Other surgical procedures as the cause of abnormal reaction of the patient, or of later complication, without mention of misadventure at the time of the procedure
CPT/HCPCS: 11045; 97605; A4456; A4663; A6021

== ENCOUNTER 2019-01-07 10:15 | Day surgery (SDC) | payer MEDICARE, OTHER | END 2019-01-07 11:53 | disposition home or self-care (01) | LOC: WOUND CARE 10:15 | PROVIDERS: ATTEND Surgery | DX: T81.89XD Other complications of procedures, not elsewhere classified, subsequent encounter (principal); E11.65 Type 2 diabetes mellitus with hyperglycemia; E11.51 Type 2 diabetes mellitus with diabetic peripheral angiopathy without gangrene; E11.22 Type 2 diabetes mellitus with diabetic chronic kidney disease; I13.10 Hypertensive heart and chronic kidney disease without heart failure, with stage 1 through stage 4 chronic kidney disease, or unspecified chronic kidney disease; N18.9 Chronic kidney disease, unspecified; I25.10 Atherosclerotic heart disease of native coronary artery without angina pectoris; I25.2 Old myocardial infarction; M19.90 Unspecified osteoarthritis, unspecified site; I48.20 Chronic atrial fibrillation, unspecified; E78.5 Hyperlipidemia, unspecified; E03.9 Hypothyroidism, unspecified; E66.9 Obesity, unspecified; Z79.01 Long term (current) use of anticoagulants; Z86.73 Personal history of transient ischemic attack (TIA), and cerebral infarction without residual deficits; Z90.49 Acquired absence of other specified parts of digestive tract; Z79.02 Long term (current) use of antithrombotics/antiplatelets; Z79.82 Long term (current) use of aspirin; Z79.899 Other long term (current) drug therapy | CPT/HCPCS: 36416; 82948; 97605; A4456; A4663; A6021 ==

== ENCOUNTER 2019-01-14 09:40 | Day surgery (SDC) | payer MEDICARE, OTHER ==
[~2019-01-14 09:40] MED LIST changes: -DIGO125T PO
[2019-01-14] MEDS ORDERED: LIDOcaine 2% 5ml jelly ONE (10:15)
== END 2019-01-14 13:00 | disposition home or self-care (01) ==
LOC: WOUND CARE 09:40
PROVIDERS: ATTEND Surgery
DX: T81.89XD Other complications of procedures, not elsewhere classified, subsequent encounter (principal); E11.65 Type 2 diabetes mellitus with hyperglycemia; E11.51 Type 2 diabetes mellitus with diabetic peripheral angiopathy without gangrene; E11.22 Type 2 diabetes mellitus with diabetic chronic kidney disease; I13.10 Hypertensive heart and chronic kidney disease without heart failure, with stage 1 through stage 4 chronic kidney disease, or unspecified chronic kidney disease; N18.9 Chronic kidney disease, unspecified; I25.10 Atherosclerotic heart disease of native coronary artery without angina pectoris; I25.2 Old myocardial infarction; M19.90 Unspecified osteoarthritis, unspecified site; I48.20 Chronic atrial fibrillation, unspecified; E78.5 Hyperlipidemia, unspecified; E03.9 Hypothyroidism, unspecified; E66.9 Obesity, unspecified; Z79.01 Long term (current) use of anticoagulants; Z86.73 Personal history of transient ischemic attack (TIA), and cerebral infarction without residual deficits; Z90.49 Acquired absence of other specified parts of digestive tract; Z79.02 Long term (current) use of antithrombotics/antiplatelets; Z79.82 Long term (current) use of aspirin; Z79.899 Other long term (current) drug therapy; Y83.8 Other surgical procedures as the cause of abnormal reaction of the patient, or of later complication, without mention of misadventure at the time of the procedure
CPT/HCPCS: 36416; 82948; 97605; A4456; A4663; A6021

== ENCOUNTER 2019-01-21 10:42 | Day surgery (SDC) | payer MEDICARE, OTHER ==
[2019-01-21] MEDS ORDERED: LIDOcaine 2% 5ml jelly ONE (11:01)
== END 2019-01-21 12:15 | disposition home or self-care (01) ==
LOC: WOUND CARE 10:42
PROVIDERS: ATTEND Surgery
DX: T81.89XD Other complications of procedures, not elsewhere classified, subsequent encounter (principal); E11.65 Type 2 diabetes mellitus with hyperglycemia; E11.51 Type 2 diabetes mellitus with diabetic peripheral angiopathy without gangrene; E11.22 Type 2 diabetes mellitus with diabetic chronic kidney disease; I13.10 Hypertensive heart and chronic kidney disease without heart failure, with stage 1 through stage 4 chronic kidney disease, or unspecified chronic kidney disease; N18.9 Chronic kidney disease, unspecified; I25.10 Atherosclerotic heart disease of native coronary artery without angina pectoris; I25.2 Old myocardial infarction; M19.90 Unspecified osteoarthritis, unspecified site; I48.20 Chronic atrial fibrillation, unspecified; E78.5 Hyperlipidemia, unspecified; E03.9 Hypothyroidism, unspecified; E66.9 Obesity, unspecified; Z79.01 Long term (current) use of anticoagulants; Z86.73 Personal history of transient ischemic attack (TIA), and cerebral infarction without residual deficits; Z90.49 Acquired absence of other specified parts of digestive tract; Z79.02 Long term (current) use of antithrombotics/antiplatelets; Z79.82 Long term (current) use of aspirin; Z79.899 Other long term (current) drug therapy; Z68.39 Body mass index [BMI] 39.0-39.9, adult; Z87.891 Personal history of nicotine dependence; Z86.718 Personal history of other venous thrombosis and embolism; Z95.1 Presence of aortocoronary bypass graft; Z96.659 Presence of unspecified artificial knee joint; Y83.8 Other surgical procedures as the cause of abnormal reaction of the patient, or of later complication, without mention of misadventure at the time of the procedure
CPT/HCPCS: 36416; 82948; 97605; A4456; A4663

== ENCOUNTER 2019-01-28 09:25 | Day surgery (SDC) | payer MEDICARE, OTHER ==
[2019-01-28] MEDS ORDERED: LIDOcaine 2% 5ml jelly ONE (09:58)
== END 2019-01-28 12:08 | disposition home or self-care (01) ==
LOC: WOUND CARE 09:25
PROVIDERS: ATTEND Surgery
DX: T81.89XD Other complications of procedures, not elsewhere classified, subsequent encounter (principal); E11.65 Type 2 diabetes mellitus with hyperglycemia; E11.51 Type 2 diabetes mellitus with diabetic peripheral angiopathy without gangrene; E11.22 Type 2 diabetes mellitus with diabetic chronic kidney disease; I13.10 Hypertensive heart and chronic kidney disease without heart failure, with stage 1 through stage 4 chronic kidney disease, or unspecified chronic kidney disease; N18.9 Chronic kidney disease, unspecified; I25.10 Atherosclerotic heart disease of native coronary artery without angina pectoris; I25.2 Old myocardial infarction; M19.90 Unspecified osteoarthritis, unspecified site; I48.20 Chronic atrial fibrillation, unspecified; E78.5 Hyperlipidemia, unspecified; E03.9 Hypothyroidism, unspecified; E66.9 Obesity, unspecified; Z79.01 Long term (current) use of anticoagulants; Z86.73 Personal history of transient ischemic attack (TIA), and cerebral infarction without residual deficits; Z90.49 Acquired absence of other specified parts of digestive tract; Z79.02 Long term (current) use of antithrombotics/antiplatelets; Z79.82 Long term (current) use of aspirin; Z79.899 Other long term (current) drug therapy; Z68.39 Body mass index [BMI] 39.0-39.9, adult; Z87.891 Personal history of nicotine dependence; Z86.718 Personal history of other venous thrombosis and embolism; Z95.1 Presence of aortocoronary bypass graft; Z96.659 Presence of unspecified artificial knee joint; Y83.8 Other surgical procedures as the cause of abnormal reaction of the patient, or of later complication, without mention of misadventure at the time of the procedure
CPT/HCPCS: 36416; 82948; 93926; 97597; A4456; A4663

== ENCOUNTER 2019-02-04 09:35 | Day surgery (SDC) | payer MEDICARE, OTHER ==
[2019-02-04] MEDS ORDERED: LIDOcaine 2% 5ml jelly ONE (11:24)
== END 2019-02-04 13:10 | disposition home or self-care (01) ==
LOC: WOUND CARE 09:35
PROVIDERS: ATTEND Surgery
DX: T81.89XD Other complications of procedures, not elsewhere classified, subsequent encounter (principal); E11.65 Type 2 diabetes mellitus with hyperglycemia; E11.51 Type 2 diabetes mellitus with diabetic peripheral angiopathy without gangrene; E11.22 Type 2 diabetes mellitus with diabetic chronic kidney disease; I13.10 Hypertensive heart and chronic kidney disease without heart failure, with stage 1 through stage 4 chronic kidney disease, or unspecified chronic kidney disease; N18.9 Chronic kidney disease, unspecified; I25.10 Atherosclerotic heart disease of native coronary artery without angina pectoris; I25.2 Old myocardial infarction; M19.90 Unspecified osteoarthritis, unspecified site; I48.20 Chronic atrial fibrillation, unspecified; E78.5 Hyperlipidemia, unspecified; E03.9 Hypothyroidism, unspecified; E66.9 Obesity, unspecified; Z79.01 Long term (current) use of anticoagulants; Z86.73 Personal history of transient ischemic attack (TIA), and cerebral infarction without residual deficits; Z90.49 Acquired absence of other specified parts of digestive tract; Z79.02 Long term (current) use of antithrombotics/antiplatelets; Z79.82 Long term (current) use of aspirin; Z79.899 Other long term (current) drug therapy; Z68.39 Body mass index [BMI] 39.0-39.9, adult; Z87.891 Personal history of nicotine dependence; Z86.718 Personal history of other venous thrombosis and embolism; Z95.1 Presence of aortocoronary bypass graft; Z96.659 Presence of unspecified artificial knee joint; Y83.8 Other surgical procedures as the cause of abnormal reaction of the patient, or of later complication, without mention of misadventure at the time of the procedure
CPT/HCPCS: 36416; 82948; 97597; A4456; A4663

== ENCOUNTER 2019-02-11 09:30 | Day surgery (SDC) | payer MEDICARE, OTHER ==
[~2019-02-11 09:30] MED LIST changes: +DIGO250T2 PO; -DIGO250T77 PO
[2019-02-11] MEDS ORDERED: LIDOcaine 2% 5ml jelly ONE (10:18)
== END 2019-02-11 11:25 | disposition home or self-care (01) ==
LOC: WOUND CARE 09:30
PROVIDERS: ATTEND Surgery
DX: T81.89XD Other complications of procedures, not elsewhere classified, subsequent encounter (principal); E11.65 Type 2 diabetes mellitus with hyperglycemia; E11.51 Type 2 diabetes mellitus with diabetic peripheral angiopathy without gangrene; E11.22 Type 2 diabetes mellitus with diabetic chronic kidney disease; I13.10 Hypertensive heart and chronic kidney disease without heart failure, with stage 1 through stage 4 chronic kidney disease, or unspecified chronic kidney disease; N18.9 Chronic kidney disease, unspecified; I25.10 Atherosclerotic heart disease of native coronary artery without angina pectoris; I25.2 Old myocardial infarction; M19.90 Unspecified osteoarthritis, unspecified site; I48.20 Chronic atrial fibrillation, unspecified; E78.5 Hyperlipidemia, unspecified; E03.9 Hypothyroidism, unspecified; E66.9 Obesity, unspecified; Z79.01 Long term (current) use of anticoagulants; Z86.73 Personal history of transient ischemic attack (TIA), and cerebral infarction without residual deficits; Z90.49 Acquired absence of other specified parts of digestive tract; Z79.02 Long term (current) use of antithrombotics/antiplatelets; Z79.82 Long term (current) use of aspirin; Z79.899 Other long term (current) drug therapy; Z68.39 Body mass index [BMI] 39.0-39.9, adult; Z87.891 Personal history of nicotine dependence; Z86.718 Personal history of other venous thrombosis and embolism; Z95.1 Presence of aortocoronary bypass graft; Z96.659 Presence of unspecified artificial knee joint; Y83.8 Other surgical procedures as the cause of abnormal reaction of the patient, or of later complication, without mention of misadventure at the time of the procedure
CPT/HCPCS: 36416; 82948; 97597; A4456; A4663; A6021

== ENCOUNTER 2019-02-27 09:20 | Day surgery (SDC) | payer MEDICARE, OTHER ==
[2019-02-27] MEDS ORDERED: LIDOcaine 2% 5ml jelly ONE (10:28)
== END 2019-02-27 11:45 | disposition home or self-care (01) ==
LOC: WOUND CARE 09:20
PROVIDERS: ATTEND Surgery
DX: T81.89XD Other complications of procedures, not elsewhere classified, subsequent encounter (principal); E11.65 Type 2 diabetes mellitus with hyperglycemia; E11.51 Type 2 diabetes mellitus with diabetic peripheral angiopathy without gangrene; E11.22 Type 2 diabetes mellitus with diabetic chronic kidney disease; I13.10 Hypertensive heart and chronic kidney disease without heart failure, with stage 1 through stage 4 chronic kidney disease, or unspecified chronic kidney disease; N18.9 Chronic kidney disease, unspecified; I25.10 Atherosclerotic heart disease of native coronary artery without angina pectoris; I25.2 Old myocardial infarction; M19.90 Unspecified osteoarthritis, unspecified site; I48.20 Chronic atrial fibrillation, unspecified; E78.5 Hyperlipidemia, unspecified; E03.9 Hypothyroidism, unspecified; E66.9 Obesity, unspecified; Z79.01 Long term (current) use of anticoagulants; Z86.73 Personal history of transient ischemic attack (TIA), and cerebral infarction without residual deficits; Z90.49 Acquired absence of other specified parts of digestive tract; Z79.02 Long term (current) use of antithrombotics/antiplatelets; Z79.82 Long term (current) use of aspirin; Z79.899 Other long term (current) drug therapy; Z68.39 Body mass index [BMI] 39.0-39.9, adult; Z87.891 Personal history of nicotine dependence; Z86.718 Personal history of other venous thrombosis and embolism; Z95.1 Presence of aortocoronary bypass graft; Z96.659 Presence of unspecified artificial knee joint; Y83.8 Other surgical procedures as the cause of abnormal reaction of the patient, or of later complication, without mention of misadventure at the time of the procedure
CPT/HCPCS: 82948; 97597; A4663; A6021; A6154; A6212

== ENCOUNTER 2019-06-19 11:27 | Emergency (ER) | payer MEDICARE, OTHER ==
[~2019-06-19] VITALS: Ht 165.1 cm; Wt 100.0 kg
[2019-06-19] MEDS ORDERED: cloNIDine 0.1 mg tablet PO ONE (12:05)
[2019-06-19 12:20] LABS: PARTIAL THROMBOPLASTIN TIME 39 SECONDS (22-32)
[2019-06-19 12:36] VITALS: BP 174/46
== END 2019-06-19 12:38 | disposition home or self-care (01) ==
LOC: ER 11:28
DX: S01.511A Laceration without foreign body of lip, initial encounter (principal); I25.10 Atherosclerotic heart disease of native coronary artery without angina pectoris; I48.91 Unspecified atrial fibrillation; Z87.01 Personal history of pneumonia (recurrent); Z79.82 Long term (current) use of aspirin; Z79.01 Long term (current) use of anticoagulants; Z79.899 Other long term (current) drug therapy; W45.8XXA Other foreign body or object entering through skin, initial encounter; Y93.89 Activity, other specified; Y92.89 Other specified places as the place of occurrence of the external cause; Y99.8 Other external cause status
CPT/HCPCS: 36415; 85610; 85730; 99284

== ENCOUNTER 2019-12-17 12:18 | Emergency (ER) | payer MEDICARE, OTHER ==
[~2019-12-17] VITALS: Ht 167 cm; Wt 103.5 kg
[2019-12-17] MEDS ORDERED: tranexamic acid 100mg/ml inj. TP ONE (13:15)
[2019-12-17 14:38] VITALS: BP 157/70
== END 2019-12-17 14:40 | disposition home or self-care (01) ==
LOC: ER 12:19
DX: R04.0 Epistaxis (principal); I48.91 Unspecified atrial fibrillation; I25.10 Atherosclerotic heart disease of native coronary artery without angina pectoris; Z79.82 Long term (current) use of aspirin; Z79.899 Other long term (current) drug therapy
CPT/HCPCS: 99284

== ENCOUNTER 2020-01-31 21:08 | Emergency (ER) | payer MEDICARE, OTHER ==
[~2020-01-31] VITALS: Ht 165.1 cm; Wt 99.5 kg
[2020-01-31] MEDS ORDERED: oxymetazoline 15 ML nasal spray NS ONE (21:25)
[2020-01-31] MEDS ORDERED: LIDOcaine 4% (40 mg/ml) topical solution 50ml TP ONE (21:25)
--- NOTE | 2020-01-31 22:00 | NUR ---
afrin and lidocaine administered by cristina gaytan to left nare.
[2020-01-31 22:09] LABS: BASOPHILS # (AUTO) 0.1 X10'3 (0-0.2); BASOPHILS % (AUTO) 0.8 % (0-1); EOSINOPHILS # (AUTO) 0.5 X10'3 (0-0.9); EOSINOPHILS % (AUTO) 4.6 % (0-6); HEMATOCRIT 33.4 % (42.0-52.0); HEMOGLOBIN 10.6 g/dl (14.0-17.9); LYMPHOCYTES # (AUTO) 1.6 X10'3 (1.1-4.8); LYMPHOCYTES % (AUTO) 15.5 % (21-51); MEAN CORPUSCULAR HEMOGLOBIN 23.5 PG (27.0-31.0); MEAN CORPUSCULAR HGB CONC 31.6 g/dL (33.0-36.5); MEAN CORPUSCULAR VOLUME 74.4 FL (78-98); MEAN PLATELET VOLUME 8.2 FL (7.4-10.4); MONOCYTES # (AUTO) 0.9 X10'3 (0-0.9); NEUTROPHILS # (AUTO) 7.2 X10'3 (1.8-7.7); NEUTROPHILS % (AUTO) 70.1 % (42-75); PLATELET COUNT 335 X10'3 (140-440); RED BLOOD COUNT 4.48 X10'6 (4.70-6.10); RED CELL DISTRIBUTION WIDTH 19.3 % (11.5-14.5); WHITE BLOOD COUNT 10.2 X10'3 (4.5-11.0)
[2020-01-31 22:35] LABS: ACANTHOCYTES FEW; ANISOCYTOSIS 2+; ELLIPTOCYTES FEW; MICROCYTOSIS 1+; PLATELET ESTIMATE NORMAL; POLYCHROMASIA FEW
[2020-01-31 22:36] LABS: LARGE PLATELETS FEW
[2020-01-31 23:13] VITALS: BP 126/110
== END 2020-01-31 23:34 | disposition home or self-care (01) ==
LOC: ER 21:09
DX: R04.0 Epistaxis (principal); I48.91 Unspecified atrial fibrillation; I25.10 Atherosclerotic heart disease of native coronary artery without angina pectoris; Z79.82 Long term (current) use of aspirin; Z79.2 Long term (current) use of antibiotics; Z79.899 Other long term (current) drug therapy; Z79.01 Long term (current) use of anticoagulants
CPT/HCPCS: 30901; 36415; 82948; 85008; 85025; 85610; 99284

== ENCOUNTER 2020-07-14 23:41 | Emergency (ER) | payer MEDICARE, OTHER ==
[~2020-07-14] VITALS: Ht 165.1 cm; Wt 103.5 kg
[2020-07-15 01:11] LABS: EOSINOPHILS # (AUTO) 0.4 X10'3 (0-0.9); HEMOGLOBIN 9.6 g/dl (14.0-17.9)
[2020-07-15 01:13] LABS: BASOPHILS # (AUTO) 0.1 X10'3 (0-0.2); BASOPHILS % (AUTO) 0.8 % (0-1); EOSINOPHILS % (AUTO) 4.7 % (0-6); HEMATOCRIT 31.1 % (42.0-52.0); LYMPHOCYTES # (AUTO) 1.6 X10'3 (1.1-4.8); LYMPHOCYTES % (AUTO) 17.4 % (21-51); MEAN CORPUSCULAR HEMOGLOBIN 21.3 PG (27.0-31.0); MEAN CORPUSCULAR HGB CONC 30.9 g/dL (33.0-36.5); MEAN CORPUSCULAR VOLUME 68.9 FL (78-98); MEAN PLATELET VOLUME 7.7 FL (7.4-10.4); MONOCYTES % (AUTO) 10.7 % (2-12); NEUTROPHILS # (AUTO) 5.9 X10'3 (1.8-7.7); NEUTROPHILS % (AUTO) 66.4 % (42-75); PLATELET COUNT 362 X10'3 (140-440); RED BLOOD COUNT 4.51 X10'6 (4.70-6.10); RED CELL DISTRIBUTION WIDTH 21.6 % (11.5-14.5)
[2020-07-15 01:15] LABS: ALANINE AMINOTRANSFERASE 30 U/L (12-78); ALBUMIN 2.9 G/DL (3.4-5.0); ALBUMIN/GLOBULIN RATIO 0.7 (1.1-1.5); ALKALINE PHOSPHATASE 122 IU/L (46-116); ANION GAP 8 (8-16); ASPARTATE AMINO TRANSFERASE 21 U/L (10-37); BILIRUBIN,TOTAL 0.4 MG/DL (0.1-1.0); BLOOD UREA NITROGEN 35 MG/DL (7-18); BUN/CREATININE RATIO 23.2 (5.4-32.0); CALCIUM 8.1 MG/DL (8.5-10.1); CHLORIDE 106 MMOL/L (99-107); CREATININE 1.51 MG/DL (0.60-1.10); GLUCOSE 137 MG/DL (70-104); POTASSIUM 4.2 MMOL/L (3.5-5.1); SODIUM 141 MMOL/L (135-145); TOTAL CARBON DIOXIDE 26.8 MMOL/L (24-32); eGFR 44 ML/MIN
[2020-07-15 01:18] LABS: TROPONIN I < 0.04 NG/ML (0.0-0.05)
[2020-07-15 02:19] VITALS: BP 151/52
[2020-07-15 03:54] LABS: PLATELET ESTIMATE NORMAL
[2020-07-15 03:55] LABS: ANISOCYTOSIS 3+; ELLIPTOCYTES FEW; LARGE PLATELETS FEW; MICROCYTOSIS 2+; POIKILOCYTOSIS 1+; POLYCHROMASIA FEW
== END 2020-07-15 02:21 | disposition home or self-care (01) ==
LOC: ER 23:41
DX: I10 Essential (primary) hypertension (principal); I48.91 Unspecified atrial fibrillation; I25.10 Atherosclerotic heart disease of native coronary artery without angina pectoris; Z87.01 Personal history of pneumonia (recurrent); Z79.82 Long term (current) use of aspirin; Z79.899 Other long term (current) drug therapy
CPT/HCPCS: 36415; 80053; 84484; 85008; 85025; 93005; 99284

== ENCOUNTER 2020-09-05 14:46 | Observation (INO) | payer MEDICARE, OTHER ==
[~2020-09-05] VITALS: Ht 165.1 cm; Wt 99.2 kg
[2020-09-05 16:22] LABS: BASOPHILS # (AUTO) 0.1 X10'3 (0-0.2); BASOPHILS % (AUTO) 1.1 % (0-1); EOSINOPHILS # (AUTO) 0.4 X10'3 (0-0.9); EOSINOPHILS % (AUTO) 4.9 % (0-6); HEMATOCRIT 31.6 % (42.0-52.0); HEMOGLOBIN 9.7 g/dl (14.0-17.9); LYMPHOCYTES # (AUTO) 1.2 X10'3 (1.1-4.8); LYMPHOCYTES % (AUTO) 15.6 % (21-51); MEAN CORPUSCULAR HEMOGLOBIN 21.4 PG (27.0-31.0); MEAN CORPUSCULAR HGB CONC 30.5 g/dL (33.0-36.5); MEAN CORPUSCULAR VOLUME 70.1 FL (78-98); MEAN PLATELET VOLUME 8.3 FL (7.4-10.4); MONOCYTES # (AUTO) 0.8 X10'3 (0-0.9); MONOCYTES % (AUTO) 10.1 % (2-12); NEUTROPHILS # (AUTO) 5.2 X10'3 (1.8-7.7); NEUTROPHILS % (AUTO) 68.3 % (42-75); PLATELET COUNT 272 X10'3 (140-440); RED BLOOD COUNT 4.52 X10'6 (4.70-6.10); RED CELL DISTRIBUTION WIDTH 21.4 % (11.5-14.5); WHITE BLOOD COUNT 7.6 X10'3 (4.5-11.0)
[2020-09-05 16:27] LABS: ALANINE AMINOTRANSFERASE 25 U/L (12-78); ALBUMIN 2.8 G/DL (3.4-5.0); ALBUMIN/GLOBULIN RATIO 0.7 (1.1-1.5); ALKALINE PHOSPHATASE 102 IU/L (46-116); ANION GAP 9 (8-16); ASPARTATE AMINO TRANSFERASE 22 U/L (10-37); BILIRUBIN,TOTAL 0.5 MG/DL (0.1-1.0); BLOOD UREA NITROGEN 32 MG/DL (7-18); BUN/CREATININE RATIO 23.7 (5.4-32.0); CALCIUM 7.7 MG/DL (8.5-10.1); CHLORIDE 108 MMOL/L (99-107); CREATININE 1.35 MG/DL (0.60-1.10); GLUCOSE 113 MG/DL (70-104); POTASSIUM 4.3 MMOL/L (3.5-5.1); SODIUM 141 MMOL/L (135-145); TOTAL CARBON DIOXIDE 24.3 MMOL/L (24-32); TOTAL PROTEIN 6.9 G/DL (6.4-8.2); eGFR 51 ML/MIN
[2020-09-05 17:03] LABS: ANISOCYTOSIS 3+; MICROCYTOSIS 1+; PLATELET ESTIMATE NORMAL; POLYCHROMASIA FEW
[2020-09-05 17:04] LABS: ACANTHOCYTES FEW; BURR CELLS FEW; ELLIPTOCYTES 1+; HYPOCHROMASIA 1+; LARGE PLATELETS FEW; SCHISTOCYTES FEW
[2020-09-05] MEDS ORDERED: aspirin 81mg tab.chew PO ONE (19:50)
[2020-09-05] MEDS ORDERED: ondansetron/PF 4mg/2ml inj IV PRN (20:15)
[2020-09-05] MEDS ORDERED: potassium Cl 40MEQ/1/2NS 520ml 520 ML IV PRN ×2 (20:15)
[2020-09-05] MEDS ORDERED: regadenoson 0.4mg/5ml syringe IV PRN (20:15)
[2020-09-05] MEDS ORDERED: potassium Cl 20 mEq SR tablet PO PRN ×2 (20:15)
[2020-09-05] MEDS ORDERED: morphine 2 MG/ML inj. syringe IV PRN ×2 (20:15)
[2020-09-05] MEDS ORDERED: aminophylline 250mg/10ml inj. IV PRN (20:15)
[2020-09-05] MEDS ORDERED: dextrose ORAL solution 15 GM/59 ML bottle PO PRN ×2 (20:15)
[2020-09-05] MEDS ORDERED: glucagon, human recombinant 1mg kit SUBCUT PRN (20:15)
[2020-09-05] MEDS ORDERED: nitroGLYCERIN 0.4mg SUBLingual tab SL PRN ×2 (20:15→21:20)
[2020-09-05] MEDS ORDERED: magnesium hydroxide 30ml (MOM) UD suspension PO PRN (20:15)
[2020-09-05] MEDS ORDERED: insulin Lispro (HumaLOG) vial - multi-dose SQ SCH (20:15)
[2020-09-05] MEDS ORDERED: dextrose 50%-water 50ml dispensing syringe IV PRN ×2 (20:15)
[2020-09-05] MEDS ORDERED: metoprolol tartrate 1mg/ml inj IV PRN (20:15)
[2020-09-05] MEDS ORDERED: magnesium 2GM in 50ml NS 50 ML IV PRN (20:15)
[2020-09-05] MEDS ORDERED: mag hydrox/Alum hydrox/simeth 30ml oral suspension PO PRN (20:15)
[2020-09-05] MEDS ORDERED: HYDROcodone/acetaminophen 10/325mg tab PO PRN (20:15)
[2020-09-05] MEDS ORDERED: MESSAGE TO PHARMACY PO ONE (20:15)
[2020-09-05] MEDS ORDERED: PERFLUTREN PROTEIN-A MICROSPHR (Optison) 0.22 MG/ML 3ML VIAL IV ONE (20:15)
[2020-09-05] MEDS ORDERED: magnesium 4gm in 100ml NS 100 ML IV PRN (20:15)
[2020-09-05] MEDS ORDERED: acetaminophen 325mg tablet PO PRN (20:15)
[2020-09-05] MEDS ORDERED: LISI20TA28 PO (20:34)
[2020-09-05 20:45] LABS: HEMOGLOBIN A1C 7.1 % (4.5-6.2)
[2020-09-05] MEDS: insulin glargine (Lantus) pen - multi-dose SQ SCH (20:58)
[2020-09-05] MEDS ORDERED: WARF-55 PO ×2 (21:00)
[2020-09-05] MEDS ORDERED: LOP12.5T PO (21:00)
[2020-09-05] MEDS: normal saline 1000ml 1,000 ML IV SCH (21:13)
[2020-09-05] MEDS ORDERED: traMADol 50MG tablet PO PRN ×2 (21:25→21:39)
[2020-09-05 21:30] LABS: COLOR,URINE YELLOW (Yellow); GLUCOSE, URINE NEGATIVE (Neg); KETONES,URINE NEGATIVE (Neg); LEUKOCYTE ESTERASE ,URINE MODERATE (Neg); NITRITES, URINE NEGATIVE (Neg); OCCULT BLOOD,URINE SMALL (Neg); PROTEIN,URINE 100 mg/dl (Neg); UROBILINOGEN,URINE 0.2 E.U/dL (0.2-1.0)
[2020-09-05 21:45] LABS: CLARITY,URINE SLIGHTLY CLOUDY (Clear); UA COLLECTION TYPE VOIDED
[2020-09-05 21:46] LABS: BACTERIA,URINE 1+ /HPF (Neg); SQUAMOUS EPITHELIAL CELL,UR FEW /LPF (FEW); WBC CLUMPS,URINE MODERATE /HPF (NEGATIVE)
[2020-09-05 21:47] LABS: MUCUS STRANDS FEW /LPF (Neg)
[2020-09-05] MEDS ORDERED: warfarin 5mg tablet PO ONE (23:25)
[2020-09-06] VITALS (10 sets, daily range): BP systolic 149–188; BP diastolic 55–73
[2020-09-06 03:20] LABS: BASOPHILS # (AUTO) 0.1 X10'3 (0-0.2); BASOPHILS % (AUTO) 0.9 % (0-1); EOSINOPHILS # (AUTO) 0.4 X10'3 (0-0.9); EOSINOPHILS % (AUTO) 5.7 % (0-6); HEMATOCRIT 29.7 % (42.0-52.0); HEMOGLOBIN 9.1 g/dl (14.0-17.9); LYMPHOCYTES % (AUTO) 13.9 % (21-51); MEAN CORPUSCULAR HEMOGLOBIN 21.2 PG (27.0-31.0); MEAN CORPUSCULAR HGB CONC 30.6 g/dL (33.0-36.5); MEAN CORPUSCULAR VOLUME 69.4 FL (78-98); MEAN PLATELET VOLUME 8.9 FL (7.4-10.4); MONOCYTES # (AUTO) 0.8 X10'3 (0-0.9); MONOCYTES % (AUTO) 11.4 % (2-12); NEUTROPHILS % (AUTO) 68.1 % (42-75); PLATELET COUNT 262 X10'3 (140-440); RED BLOOD COUNT 4.28 X10'6 (4.70-6.10); RED CELL DISTRIBUTION WIDTH 21.8 % (11.5-14.5); WHITE BLOOD COUNT 7.4 X10'3 (4.5-11.0)
[2020-09-06 03:40] LABS: ALANINE AMINOTRANSFERASE 22 U/L (12-78); ALBUMIN 2.8 G/DL (3.4-5.0); ALBUMIN/GLOBULIN RATIO 0.8 (1.1-1.5); ALKALINE PHOSPHATASE 93 IU/L (46-116); ANION GAP 7 (8-16); ASPARTATE AMINO TRANSFERASE 31 U/L (10-37); BILIRUBIN,TOTAL 0.6 MG/DL (0.1-1.0); BLOOD UREA NITROGEN 29 MG/DL (7-18); BUN/CREATININE RATIO 22.7 (5.4-32.0); CALCIUM 7.7 MG/DL (8.5-10.1); CHLORIDE 108 MMOL/L (99-107); CREATININE 1.28 MG/DL (0.60-1.10); GLUCOSE 100 MG/DL (70-104); POTASSIUM 4.1 MMOL/L (3.5-5.1); SODIUM 141 MMOL/L (135-145); TOTAL CARBON DIOXIDE 26.5 MMOL/L (24-32); TOTAL PROTEIN 6.5 G/DL (6.4-8.2); eGFR 54 ML/MIN
[2020-09-06 03:41] LABS: MAGNESIUM 2.2 MG/DL (1.5-2.4)
[2020-09-06 04:09] LABS: % IRON SATURATION 8 % (11-46); IRON 25 UG/DL (53-167); TOTAL IRON BINDING CAPACITY 323 UG/DL (259-388)
--- NOTE | 2020-09-06 07:07 | NUR ---
Patient in room ED 4 -- GOING TO ROOM 4010B. I have received report from JOB LOPEZ IN ED and had the opportunity to ask questions and assume patient care.
[2020-09-06 07:16] LABS: ANISOCYTOSIS 3+; MICROCYTOSIS 2+; PLATELET ESTIMATE NORMAL
[2020-09-06 07:17] LABS: BURR CELLS FEW; ELLIPTOCYTES FEW; SCHISTOCYTES FEW; TARGET CELLS FEW
[2020-09-06 07:18] LABS: HYPOCHROMASIA 1+
--- NOTE | 2020-09-06 07:35 | NUR ---
PT ARRIVED TO FLOOR AT 0730
[2020-09-06] MEDS ORDERED: aspirin 81mg tablet.DR PO SCH (08:00)
[2020-09-06] MEDS: K and/or MAG REPLACEMENT MC SCH ×2 (08:00→20:00)
[2020-09-06] MEDS: normal saline 1000ml 1,000 ML IV SCH (08:23)
--- NOTE | 2020-09-06 11:13 | NUR ---
PT ARRIVED BACK ON FLOOR FROM [employer] AT 1110.
--- NOTE | 2020-09-06 11:17 | NUR ---
Page Sent PAGER ID: [phone] MESSAGE: SIL [id number] RE: DYLAN COOK [id number] PT IS BACK FROM STRESS TEST, NUC MED SAID TEST RESULTS SHOULD AVAILABLE IN ABOUT AN HOUR
[2020-09-06] MEDS: metoprolol tartrate 12.5mg (1/2 tablet) PO SCH ×2 (11:24→20:51)
[2020-09-06] MEDS: digoxin 250mcg (0.25mg) tablet PO SCH (11:25)
[2020-09-06] MEDS: furosemide 40mg tablet PO SCH (11:25)
[2020-09-06] MEDS: lisinopril 20mg tablet PO SCH (11:25)
[2020-09-06] MEDS: levoTHYROXINE 125mcg tablet PO SCH (11:26)
--- NOTE | 2020-09-06 14:51 | NUR ---
Page Sent PAGER ID: [phone] MESSAGE: SIL [phone] RE: DYLAN COOK [id number] CAN WE ADVANCE PT'S DIET FROM NPO? THANKS
[2020-09-06] MEDS ORDERED: furosemide 40mg/4ml inj IV ONE (15:25)
--- NOTE | 2020-09-06 15:41 | NUR ---
Page Sent PAGER ID: [phone] MESSAGE: SIL [phone] DYLAN COOK [id number] TELE CALLED AND SAID PT HAS BEEN RUNNING IN 50S, BUT BRADYS DOWN TO 30S AND 40S
--- NOTE | 2020-09-06 15:45 | NUR ---
called Roxana Velasquez and left message about patient in 30's 40's boubacar, and about a possible diet order. waiting for response.
--- NOTE | 2020-09-06 17:36 | NUR ---
PAGER ID: [phone] MESSAGE: [phone], José Miguel, can he get a diet order please errol [phone]
[2020-09-06] MEDS ORDERED: enoxaparin 40mg/0.4ml syringe SQ SCH (20:00)
[2020-09-06] MEDS: insulin glargine (Lantus) pen - multi-dose SQ SCH (21:00)
[2020-09-06] MEDS ORDERED: atorvastatin 10mg tablet PO SCH (21:00)
[2020-09-06] MEDS ORDERED: warfarin 5mg tablet PO ONE (21:00)
[2020-09-06] MEDS: HYDROcodone/acetaminophen 5mg/325mg tablet PO PRN (22:42)
[2020-09-07] MEDS ORDERED: furosemide 40mg/4ml inj IV ONE (03:00)
[2020-09-07 03:18] VITALS: BP 155/78
--- NOTE | 2020-09-07 05:16 | NUR ---
Pt BP is 181/75 and HR is 64. Paged Dr Wisdom. Ok'd to give Lisinopril early. Will hold metoprolol for now due to HR in 30's-50's throughout night.
[2020-09-07] MEDS: lisinopril 20mg tablet PO SCH (05:21)
[2020-09-07] MEDS: HYDROcodone/acetaminophen 5mg/325mg tablet PO PRN ×2 (05:23→10:02)
[2020-09-07 06:00] VITALS: BP 181/75
--- NOTE | 2020-09-07 06:10 | NUR ---
RECEIVED REPORT FROM JOB BLACKBURN
[2020-09-07] MEDS: metoprolol tartrate 12.5mg (1/2 tablet) PO SCH (07:26)
[2020-09-07] MEDS: digoxin 250mcg (0.25mg) tablet PO SCH (07:33)
[2020-09-07] MEDS: furosemide 40mg tablet PO SCH (07:34)
[2020-09-07] MEDS: levoTHYROXINE 125mcg tablet PO SCH (07:34)
[2020-09-07 07:59] LABS: BASOPHILS # (AUTO) 0.1 X10'3 (0-0.2); BASOPHILS % (AUTO) 1.4 % (0-1); EOSINOPHILS # (AUTO) 0.3 X10'3 (0-0.9); EOSINOPHILS % (AUTO) 4.2 % (0-6); HEMOGLOBIN 10.4 g/dl (14.0-17.9); LYMPHOCYTES # (AUTO) 1.3 X10'3 (1.1-4.8); LYMPHOCYTES % (AUTO) 18.4 % (21-51); MEAN CORPUSCULAR HEMOGLOBIN 21.3 PG (27.0-31.0); MEAN CORPUSCULAR HGB CONC 30.6 g/dL (33.0-36.5); MEAN CORPUSCULAR VOLUME 69.8 FL (78-98); MEAN PLATELET VOLUME 8.4 FL (7.4-10.4); MONOCYTES # (AUTO) 0.7 X10'3 (0-0.9); MONOCYTES % (AUTO) 9.8 % (2-12); NEUTROPHILS # (AUTO) 4.8 X10'3 (1.8-7.7); NEUTROPHILS % (AUTO) 66.2 % (42-75); PLATELET COUNT 321 X10'3 (140-440); RED BLOOD COUNT 4.87 X10'6 (4.70-6.10); RED CELL DISTRIBUTION WIDTH 21.6 % (11.5-14.5); WHITE BLOOD COUNT 7.2 X10'3 (4.5-11.0)
[2020-09-07] MEDS: K and/or MAG REPLACEMENT MC SCH (08:00)
[2020-09-07] MEDS ORDERED: aspirin 81mg tablet.DR PO SCH (08:00)
[2020-09-07 09:08] LABS: ALANINE AMINOTRANSFERASE 26 U/L (12-78); ALBUMIN 3.1 G/DL (3.4-5.0); ALBUMIN/GLOBULIN RATIO 0.7 (1.1-1.5); ALKALINE PHOSPHATASE 119 IU/L (46-116); ANION GAP 14 (8-16); ASPARTATE AMINO TRANSFERASE 27 U/L (10-37); BILIRUBIN,TOTAL 0.7 MG/DL (0.1-1.0); BLOOD UREA NITROGEN 30 MG/DL (7-18); BUN/CREATININE RATIO 21.4 (5.4-32.0); CALCIUM 8.3 MG/DL (8.5-10.1); CHLORIDE 104 MMOL/L (99-107); GLUCOSE 103 MG/DL (70-104); MAGNESIUM 2.2 MG/DL (1.5-2.4); POTASSIUM 3.8 MMOL/L (3.5-5.1); SODIUM 143 MMOL/L (135-145); TOTAL CARBON DIOXIDE 25.4 MMOL/L (24-32); TOTAL PROTEIN 7.5 G/DL (6.4-8.2); eGFR 49 ML/MIN
--- NOTE | 2020-09-07 09:27 | NUR ---
DM Consult: Pt A1C 7.1 appropriate given age. Addendum: 09/07/20 at [address] Amended: Links added.
[2020-09-07 09:50] VITALS: BP 155/72
[2020-09-07] MEDS ORDERED: DIGO125T PO (10:02)
[2020-09-07] MEDS ORDERED: LISI40TA13 PO (10:02)
[2020-09-07] MEDS ORDERED: ATOR40TA PO (10:02)
--- NOTE | 2020-09-07 10:51 | NUR ---
PT D/C WITH INSTRUCTIONS, UNDERSTANDING OF INSTRUCTIONS AND W/ALL BELONGINGS IN WHEELCHAIR ACCOMPANIED BY NURSING STAFF TO PRIVATE VEHICLE TO GO HOME AND F/U W/PCP, PCP IS SUPPOSED TO REFER PT TO MANAGER [employer] PER DR. ALAMO
== END 2020-09-07 10:45 | disposition home or self-care (01) ==
LOC: ER 14:47 → ED HOLD 20:15 → ORTHO 4S 09-06 07:37
PROVIDERS: ADMIT Family Medicine; ATTEND Internal Medicine
DX: E11.22 Type 2 diabetes mellitus with diabetic chronic kidney disease (principal); E11.51 Type 2 diabetes mellitus with diabetic peripheral angiopathy without gangrene; I13.0 Hypertensive heart and chronic kidney disease with heart failure and stage 1 through stage 4 chronic kidney disease, or unspecified chronic kidney disease; I50.33 Acute on chronic diastolic (congestive) heart failure; I48.20 Chronic atrial fibrillation, unspecified; N18.9 Chronic kidney disease, unspecified; D64.9 Anemia, unspecified; E03.9 Hypothyroidism, unspecified; E78.5 Hyperlipidemia, unspecified; I25.110 Atherosclerotic heart disease of native coronary artery with unstable angina pectoris; G47.30 Sleep apnea, unspecified; J98.11 Atelectasis; N17.9 Acute kidney failure, unspecified; Z79.01 Long term (current) use of anticoagulants; Z79.84 Long term (current) use of oral hypoglycemic drugs; Z95.1 Presence of aortocoronary bypass graft; Z87.891 Personal history of nicotine dependence; Z96.652 Presence of left artificial knee joint
CPT/HCPCS: 36415; 71045; 78452; 80053; 81001; 82948; 83036; 83540; 83550; 83735; 83880; 84443; 84484; 85025; 85610; 87081; 87088; 93005; 93017; 93306; 96361; 96372; 96374; 96375; 96376; 99285; A9500; G0378; J1815; J1940; J2270; J2785; J7030; 85008; J1650

== ENCOUNTER 2021-02-01 04:12 | Emergency (ER) | payer MEDICARE, OTHER ==
[~2021-02-01] VITALS: Ht 160 cm; Wt 99.0 kg
[~2021-02-01 04:12] MED LIST changes: -ATOR10TA PO; +ATOR40TA PO; +DIGO125T PO; -DIGO250T2 PO; +LISI40TA13 PO; +LOP12.5T PO; -NEO/5DRO3 LEFTEYE; +WARF-55 PO
[2021-02-01] MEDS: tranexamic acid 100mg/ml inj. TP ONE (04:41)
[2021-02-01 05:05] LABS: BASOPHILS # (AUTO) 0.1 X10'3 (0-0.2); BASOPHILS % (AUTO) 1.2 % (0-1); EOSINOPHILS # (AUTO) 0.7 X10'3 (0-0.9); EOSINOPHILS % (AUTO) 8.7 % (0-6); HEMATOCRIT 36.3 % (42.0-52.0); HEMOGLOBIN 11.6 g/dl (14.0-17.9); LYMPHOCYTES # (AUTO) 1.1 X10'3 (1.1-4.8); LYMPHOCYTES % (AUTO) 14.4 % (21-51); MEAN CORPUSCULAR HEMOGLOBIN 24.9 PG (27.0-31.0); MEAN CORPUSCULAR HGB CONC 31.9 g/dL (33.0-36.5); MEAN PLATELET VOLUME 7.8 FL (7.4-10.4); MONOCYTES # (AUTO) 0.8 X10'3 (0-0.9); MONOCYTES % (AUTO) 10.5 % (2-12); NEUTROPHILS % (AUTO) 65.2 % (42-75); PLATELET COUNT 330 X10'3 (140-440); RED BLOOD COUNT 4.66 X10'6 (4.70-6.10); RED CELL DISTRIBUTION WIDTH 20.5 % (11.5-14.5); WHITE BLOOD COUNT 7.6 X10'3 (4.5-11.0)
[2021-02-01 05:16] LABS: PARTIAL THROMBOPLASTIN TIME 40 SECONDS (22-32)
[2021-02-01 05:34] VITALS: BP 161/60
[2021-02-01 08:03] LABS: ANISOCYTOSIS 3+; MICROCYTOSIS 1+; PLATELET ESTIMATE NORMAL
== END 2021-02-01 05:38 | disposition home or self-care (01) ==
LOC: ER 04:12
DX: K06.8 Other specified disorders of gingiva and edentulous alveolar ridge (principal); I48.11 Longstanding persistent atrial fibrillation; D64.9 Anemia, unspecified; I25.10 Atherosclerotic heart disease of native coronary artery without angina pectoris; I10 Essential (primary) hypertension; Z87.01 Personal history of pneumonia (recurrent); Z79.82 Long term (current) use of aspirin; Z79.899 Other long term (current) drug therapy
CPT/HCPCS: 36415; 85008; 85025; 85610; 85730; 99283; J3490

== ENCOUNTER 2021-02-05 10:31 | Emergency (ER) | payer MEDICARE, OTHER ==
[~2021-02-05] VITALS: Ht 165.1 cm; Wt 95.9 kg
[2021-02-05 11:21] LABS: BASOPHILS # (AUTO) 0.1 X10'3 (0-0.2); BASOPHILS % (AUTO) 1.4 % (0-1); EOSINOPHILS # (AUTO) 0.6 X10'3 (0-0.9); EOSINOPHILS % (AUTO) 7.7 % (0-6); HEMATOCRIT 37.7 % (42.0-52.0); HEMOGLOBIN 12.3 g/dl (14.0-17.9); LYMPHOCYTES # (AUTO) 1.2 X10'3 (1.1-4.8); LYMPHOCYTES % (AUTO) 16.8 % (21-51); MEAN CORPUSCULAR HEMOGLOBIN 25.3 PG (27.0-31.0); MEAN CORPUSCULAR HGB CONC 32.7 g/dL (33.0-36.5); MEAN CORPUSCULAR VOLUME 77.4 FL (78-98); MEAN PLATELET VOLUME 7.6 FL (7.4-10.4); MONOCYTES # (AUTO) 0.7 X10'3 (0-0.9); MONOCYTES % (AUTO) 9.1 % (2-12); NEUTROPHILS # (AUTO) 4.8 X10'3 (1.8-7.7); PLATELET COUNT 364 X10'3 (140-440); RED BLOOD COUNT 4.87 X10'6 (4.70-6.10); RED CELL DISTRIBUTION WIDTH 20.6 % (11.5-14.5); WHITE BLOOD COUNT 7.4 X10'3 (4.5-11.0)
[2021-02-05 11:29] LABS: PARTIAL THROMBOPLASTIN TIME 38 SECONDS (22-32)
[2021-02-05 11:34] LABS: ALANINE AMINOTRANSFERASE 45 U/L (12-78); ALBUMIN 3.2 G/DL (3.4-5.0); ALBUMIN/GLOBULIN RATIO 0.7 (1.1-1.5); ALKALINE PHOSPHATASE 142 IU/L (46-116); ANION GAP 8 (8-16); ASPARTATE AMINO TRANSFERASE 30 U/L (10-37); BILIRUBIN,TOTAL 0.6 MG/DL (0.1-1.0); BLOOD UREA NITROGEN 29 MG/DL (7-18); BUN/CREATININE RATIO 20.3 (5.4-32.0); CALCIUM 8.7 MG/DL (8.5-10.1); CHLORIDE 105 MMOL/L (99-107); CREATININE 1.43 MG/DL (0.60-1.10); GLUCOSE 122 MG/DL (70-104); POTASSIUM 4.4 MMOL/L (3.5-5.1); SODIUM 142 MMOL/L (135-145); TOTAL CARBON DIOXIDE 29.2 MMOL/L (24-32); TOTAL PROTEIN 7.7 G/DL (6.4-8.2); eGFR 47 ML/MIN
[2021-02-05 11:44] LABS: ANISOCYTOSIS 3+; MICROCYTOSIS 1+; PLATELET ESTIMATE NORMAL; POIKILOCYTOSIS FEW
[2021-02-05 13:33] VITALS: BP 151/57
[2021-02-05] MEDS ORDERED: PENI250T2 PO (13:37)
== END 2021-02-05 14:47 | disposition home or self-care (01) ==
LOC: ER 10:32
DX: K06.8 Other specified disorders of gingiva and edentulous alveolar ridge (principal); D68.59 Other primary thrombophilia; I48.91 Unspecified atrial fibrillation; I10 Essential (primary) hypertension; Z95.0 Presence of cardiac pacemaker; I25.10 Atherosclerotic heart disease of native coronary artery without angina pectoris; Z87.01 Personal history of pneumonia (recurrent)
CPT/HCPCS: 36415; 71046; 80053; 85008; 85025; 85610; 85730; 99284

== ENCOUNTER 2023-07-25 15:42 | Outpatient (CLI) | payer MEDICARE, OTHER ==
[~2023-07-25] VITALS: Ht 167.6 cm; Wt 86.6 kg
[~2023-07-25 15:42] MED LIST changes: -ASPI-611 PO; +FERR1TAB25 PO; +GUAI600T45 PO; +MULT-661 PO
[2023-07-25 16:14] LABS: TOTAL HEMOGLOBIN 10.4 G/dl (14.0-17.9)
[2023-07-25] MEDS: albuterol 2.5 MG/3 ML nebule NEB ONE (16:48)
[2023-07-25 16:52] VITALS: PULSE 84; RESP 15; O2SAT 93
== END 2023-07-25 23:59 | disposition home or self-care (01) ==
LOC: RT 15:42
PROVIDERS: ATTEND Internal Medicine Pulmonary Disease
DX: J44.9 Chronic obstructive pulmonary disease, unspecified (principal)
CPT/HCPCS: 85018; 94060; 94727; 94729; 94760

== ENCOUNTER 2024-07-04 17:31 | Inpatient (IN) | payer MEDICARE, OTHER ==
[~2024-07-04] VITALS: Ht 165.1 cm; Wt 104.3 kg
[~2024-07-04 17:31] MED LIST changes: +TRAM-528 PO; -TRAM1TAB7 PO
--- NOTE | 2024-07-04 18:05 | Physician Documentation ---
History of Present Illness ~ Stated Complaint: ARM SWELLING OK to notify your PCP?: Yes Primary Medical Doctor: Dr. Villafuerte Source: patient, family Mode of Arrival: Wheelchair Exam Limitations: no limitations BETZAIDA Miller is an 88-year-old male presenting to emergency department with left arm pain, swelling, bruising, redness and weeping after closing the end of the door 5 days ago. He does take a blood thinner. He reports feeling more short of breath than normal as well and having a wet cough. He does have a skin tear to the inner portion of his left arm. Medication Reconciliation Allergies: Coded Allergies: No Known Allergies (Unverified , 03/13/23) Scheduled Atorvastatin Calcium* (Lipitor*), 1 TAB PO DAILY Digoxin* (Lanoxin*), 1 TAB PO DAILY Ferrous Sulfate/Vit C/FA (Folitab 500 Caplet), 1 TAB PO DAILY Furosemide (Lasix), 1 TAB PO BID Guaifenesin (Mucinex), 600 MG PO Q6H Levothyroxine Sodium (Synthroid), 1 TAB PO DAILY, (Reported) Lisinopril* (Lisinopril*), 1 TAB PO DAILY Metoprolol Tartrate (Lopressor tablet), 1 TAB PO Q12H, (Reported) Multivitamin W/Iron, Minerals (Multivitamins with Iron), 1 TAB PO DAILY Warfarin Sodium (Warfarin Sodium), 2.5 MG PO SuTuWeFrSa, (Reported) Warfarin Sodium (Warfarin Sodium), 1 TAB PO MTH, (Reported) Scheduled PRN Nitroglycerin SL* (Nitrostat SL*), 1 TAB SL Q5MIN PRN for Chest pain Q5min PRNx3-call MD, (Reported) Tramadol Hcl/Acetaminophen* (Ultracet*), 2 TAB PO Q6H PRN for pain, (Reported) Past Medical History Past Medical History: Atrial Fibrillation, Coronary Artery Disease, Hypertension, Pneumonia Past Surgical History: other Patient History: (CAD) Coronary arteriosclerosis FATHER, , Age: 79 (DM Type 2) Diabetes mellitus type 2 sister sister brothers2 FH: pneumonia MOTHER, , Age: 94 Alcohol Use: None Drug Use: none Lives with: Spouse Lives In: Home Occupation: retired Progress Results/Orders Results/Orders Orders - AKBAR RIVERA SPECIAL EDUCATION SECRETARY Cbc/Diff (07/04/24 18:05) Culture Blood (07/04/24 18:05) Urinalysis, Cult If Indicated (07/04/24 18:05) Chest,Two Views (07/04/24 18:05) Monitor (07/04/24 18:05) Oxygen (07/04/24 18:05) Saline Lock (07/04/24 18:05) Procalcitonin (07/04/24 18:05) BMP (07/04/24 18:05) Hs Troponin I W Calculations (07/04/24 18:05) Lacticsepsis (07/04/24 18:05) Forearm,Incl.One Joint (07/04/24 18:05) Elbow, Complete (3vw Min) (07/04/24 18:05) Vital Signs 07/04/24 17:57 Temp 98.6 Pulse 103 Resp 22 B/P (MAP) 102/33 Pulse Ox 97 Departure Referrals: NO PRIMARY CARE PROVIDER (PCP) AKBAR RIVERA SPECIAL EDUCATION SECRETARY July 04, 2024 18:05
--- NOTE | 2024-07-04 18:21 | ELECTROCARDIOGRAPH REPORT ---
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
[2024-07-04 18:59] LABS: ALBUMIN 2.3 G/DL (3.4-5.0); ANION GAP 5 (8-16); BLOOD UREA NITROGEN 50 MG/DL (7-18); BUN/CREATININE RATIO 23.5 (10.0-20.0); CALCIUM 8.1 MG/DL (8.5-10.1); CHLORIDE 111 MMOL/L (99-107); CREATININE 2.13 MG/DL (0.60-1.10); GLUCOSE 107 MG/DL (70-104); POTASSIUM 5.4 MMOL/L (3.5-5.1); PRO BRAIN NATRIURETIC PEPTIDE 8966 PG/ML (0-450); SODIUM 143 MMOL/L (135-145); TOTAL CARBON DIOXIDE 27.3 MMOL/L (24-32); eCRCL 22 ML/MIN; eGFR 30 ML/MIN
[2024-07-04 19:14] LABS: HEMATOCRIT 24.2 % (42.0-52.0); HEMOGLOBIN 7.3 g/dl (14.0-17.9); MEAN CORPUSCULAR HEMOGLOBIN 18.9 PG (27.0-31.0); MEAN CORPUSCULAR HGB CONC 30.2 g/dL (33.0-36.5); MEAN CORPUSCULAR VOLUME 62.5 FL (78-98); MEAN PLATELET VOLUME 8.6 FL (7.4-10.4); PLATELET COUNT 275 X10'3 (140-440); RED BLOOD COUNT 3.87 X10'6 (4.70-6.10); RED CELL DISTRIBUTION WIDTH 20.9 % (11.5-14.5); WHITE BLOOD COUNT 12.6 X10'3 (4.5-11.0)
[2024-07-04 19:24] LABS: BASOPHILS % (AUTO) 0.3 % (0-1); EOSINOPHILS # (AUTO) 0.1 X10'3 (0-0.9); EOSINOPHILS % (AUTO) 0.7 % (0-6); LYMPHOCYTES % (AUTO) 8.4 % (21-51); MONOCYTES # (AUTO) 1.2 X10'3 (0-0.9); MONOCYTES % (AUTO) 9.6 % (2-12)
--- NOTE | 2024-07-04 19:32 | Physician Documentation ---
History of Present Illness ~ General Chief Complaint: Arm Pain Stated Complaint: ARM SWELLING Time Seen by MD: 19:14 Primary Medical Doctor: Dr. Vilalfuerte Source: patient, family Mode of Arrival: Wheelchair Exam Limitations: no limitations History of Present Illness Initial Comments Reviewed discharge summary February 2023 acute CHF, pleural effusion History of CAD status post CABG, hypertension, hyperlipidemia, hypothyroidism, AFib on warfarin PVD, CKD, DUSTIN He is presenting today with left arm swelling. He bumped his left forearm last week and then it began swelling over the last several days and now draining. He denies fevers or chills. He does report increasing lower extremity edema and shortness of breath and cough over the last 24 hours Medication Reconciliation Allergies: Coded Allergies: No Known Allergies (Unverified , 03/13/23) Scheduled Aspirin (Aspirin), 1 TAB PO DAILY, (Reported) Atorvastatin Calcium* (Lipitor*), 1 TAB PO DAILY Ferrous Sulfate/Vit C/FA (Folitab 500 Caplet), 1 TAB PO DAILY Furosemide (Lasix), 1 TAB PO DAILY, (Reported) Levothyroxine Sodium (Synthroid), 1 TAB PO DAILY, (Reported) Lisinopril* (Lisinopril*), 2 TAB PO DAILY, (Reported) Metoprolol Tartrate (Lopressor tablet), 0.5 TAB PO Q12H, (Reported) Multivitamin W/Iron, Minerals (Multivitamins with Iron), 1 TAB PO DAILY Warfarin Sodium (Warfarin Sodium), 2.5 MG PO SuTuWeFrSa, (Reported) Warfarin Sodium (Warfarin Sodium), 1 TAB PO MTH, (Reported) Scheduled PRN Nitroglycerin SL* (Nitrostat SL*), 1 TAB SL Q5MIN PRN for Chest pain Q5min PRNx3-call MD, (Reported) Tramadol Hcl/Acetaminophen* (Ultracet*), 2 TAB PO Q6H PRN for pain, (Reported) Discontinued Medications Digoxin* (Lanoxin*), 1 TAB PO DAILY Furosemide (Lasix), 1 TAB PO BID Discontinued Reason: Other Guaifenesin (Mucinex), 600 MG PO Q6H Discontinued Reason: completed med therapy Lisinopril* (Lisinopril*), 1 TAB PO DAILY Discontinued Reason: Other Past Medical History Past Medical History: Atrial Fibrillation, Coronary Artery Disease, Hypertension, Pneumonia Past Surgical History: other Patient History: (CAD) Coronary arteriosclerosis FATHER, , Age: 79 (DM Type 2) Diabetes mellitus type 2 sister sister brothers2 FH: pneumonia MOTHER, , Age: 94 Alcohol Use: None Drug Use: none Lives with: Spouse Lives In: Home Occupation: retired Review of Systems Constitutional: Denies: fever Respiratory: Reports: cough, orthopnea, shortness of breath Cardiovascular: Denies: chest pain Gastrointestinal: Denies: abdomen distended, abdominal pain, nausea, vomiting Physical Exam Physical Exam Vital Signs: Temperature: 98.6, Source: Oral, Heart Rate: 103, Respiratory Rate: 22, BP: 102/33, Pulse Oximetry: 97, Weight: 104.300 Physical Exam Chronically ill-appearing, ashen HEENT JVD Pulmonary bibasilar crackles Cardiac no murmur Abdomen anasarca Lower extremity 2+ pitting edema bilaterally Left upper extremity diffuse erythema and swelling distal to left elbow. Intact range of motion. No purulence Progress Results/Orders Results/Orders Orders - CARLA SCHRADER MD Page Hospitalist (07/04/24 20:02) Fill Out Med Reconciliation (07/04/24 20:02) Completed Orders - CARLA SCHRADER MD C-Reactive Protein (07/04/24 20:00) ESR (07/04/24 20:00) Cefazolin 2gm In Dextrose, Iso (Cefazoli (07/04/24 20:00) Pt Inr (07/04/24 20:00) Furosemide 40mg Inj (Lasix Inj) (07/04/24 20:05) D-Dimer (07/04/24 18:14) Hgb A1c (07/04/24 20:10) MG (07/04/24 20:10) PHOS (07/04/24 20:10) TSH (07/04/24 20:10) Medications Received in ER Medications (Trade) Dose Ordered Sig/Darrin Route PRN Reason Start Time Stop Time Status Last Admin Dose Admin ([place] 10/325mg tab) 1 tab Q4H PRN PO SEVERE PAIN 7-10 07/04/24 21:30 07/04/24 22:11 1 TAB (aspirin 325mg tablet) 1 tab ONCE ONCE PO 07/04/24 21:30 07/04/24 22:06 DC 07/04/24 22:09 1 TAB Vital Signs 07/04/24 07/04/24 07/04/24 07/04/24 17:57 19:04 19:07 20:37 Temp 98.6 Pulse 103 87 89 Resp 22 20 23 22 B/P (MAP) 102/33 104/42 (62) 120/50 (73) Pulse Ox 97 98 95 Laboratory Tests Test 07/04/24 18:14 07/04/24 20:10 07/04/24 21:12 White Blood Count 12.6 H Red Blood Count 3.87 L Hemoglobin 7.3 L Hematocrit 24.2 L Mean Corpuscular Volume 62.5 L Mean Corpuscular Hemoglobin 18.9 L Mean Corpuscular Hemoglobin Concent 30.2 L Red Cell Distribution Width 20.9 H Platelet Count 275 Mean Platelet Volume 8.6 Neutrophils (%) (Auto) 81.0 H Lymphocytes (%) (Auto) 8.4 L Monocytes (%) (Auto) 9.6 Eosinophils (%) (Auto) 0.7 Basophils (%) (Auto) 0.3 Neutrophils # (Auto) 10.0 H Lymphocytes # (Auto) 1.0 L Monocytes # (Auto) 1.2 H Eosinophils # (Auto) 0.1 Basophils # (Auto) 0.0 CBC Comment Platelet Estimate Normal Red Blood Cell Morphology Perf Basophilic Stippling Anisocytosis 3+ Microcytosis 2+ Macrocytosis 1+ Prothrombin Time 34.5 H INR International Normalized Ratio 3.8 D-Dimer 0.55 H D-Dimer Comment Coagulation Comments Sodium Level 143 Potassium Level 5.4 H Chloride Level 111 H Carbon Dioxide Level 27.3 Anion Gap 5 L Blood Urea Nitrogen 50 H Creatinine 2.13 H Estimated GFR/1.73 m2 30 BUN/Creatinine Ratio 23.5 H Glucose Level 107 H Lactic Acid Level 1.6 Calcium Level 8.1 L Troponin I High Sensitivity 397 *H 379 *H 422 *H Pro-B-Type Natriuretic Peptide 8966 H Albumin 2.3 L Procalcitonin 0.32 Chemistry Comments Erythrocyte Sedimentation Rate 23 H Hemoglobin A1c 4.7 Phosphorus Level 4.0 Magnesium Level 2.4 Troponin I High Sens Percent Delta 4 11 Troponin I Hi Sens Absolute Change -18 43 C-Reactive Protein 11.72 H Thyroid Stimulating Hormone (TSH) 1.28 Microbiology Date/Time Source Procedure Growth Status 07/04/24 20:10 Blood Iv Start Blood Culture - Preliminary NEGATIVE (LESS THAN 24 HOURS) Resulted Medical Decision Making Findings Independent interpretation of labs Hemoglobin 7.3 near baseline of 7.7 on February 2023 Creatinine 2.13 increased from 1.82 ProBNP 8900 increased from March 16, 1999 24 troponin 397 up from 15 March 2023 Independent interpretation of chest x-ray shows cardiomegaly, right middle lobe infiltrate, trace left pleural effusion X-ray elbow independently interpreted shows no acute fracture no effusion vascular calcification Forearm x-ray independently interpreted by myself shows no acute fracture, Independent interpretation of EKG time 6:19 p.m. indication shortness of breath atrial fibrillation rate 85 normal axis normal intervals poor R-wave progression no ST or T-wave abnormalities Differential Diagnosis Cellulitis, abscess, CHF, acute coronary syndrome Departure Impression: Primary Impression: Cellulitis Qualified Codes: L03.114 - Cellulitis of left upper limb Additional Impression: NSTEMI (non-ST elevated myocardial infarction) Referrals: NO PRIMARY CARE PROVIDER (PCP) Critical Care Note Total Time (mins): 30 Critical Care Note The very real possibility of a deterioration of this patient's condition required the highest level of my preparedness for sudden, emergent intervention. I provided critical care services, which included medication orders, frequent reevaluations of the patient's condition and response to treatment, ordering and reviewing test results, and discussing the case with various consultants. Excludes time spent performing separately billable procedures. The critical care time associated with the care of the patient was 30 minutes in the management of acute NSTEMI with consideration of anticoagulation Signature Scribe Signature: na Attestation: CARLA Betancourt MD July 04, 2024 19:32
--- NOTE | 2024-07-04 19:34 | RADIOLOGY REPORT ---
Clinical History ARM PAIN Comparison None Without Contrast DYLAN COOK, [id number] TECHNIQUE: 2 views of the right ulnar and radius 3 views of the right elbow FINDINGS: No evidence of acute displaced fracture or dislocation. The joints are unremarkable.No significant mynor int effusion. Atherosclerotic vascular calcification The soft tissues are unremarkable. IMPRESSION: No evidence of acute osseous abnormality. This report was electronically signed by Maged Brito MD on 07/04/2024 7:32:15 PM.
--- NOTE | 2024-07-04 19:34 | RADIOLOGY REPORT ---
Clinical History sob Comparison None Without Contrast DYLAN COOK, [id number] Technique: Frontal and lateral chest x-ray Findings: Moderate right pleural effusion with adjacent atelectasis. Small left pleural fluid. Postsurgical changes related to CABG and left atrial appendage clipping. Atherosclerotic calcificati on thoracic aorta. The cardiomediastinal silhouette is otherwise unremarkable for an AP view. No acute osseous abnormality. The imaged part of the upper abdomen is unremarkable. Impression: Moderate right pleural effusion with adjacent atelectasis. Small left pleural fluid. This report was electronically signed by Maged Brito MD on 07/04/2024 7:31:17 PM.
--- NOTE | 2024-07-04 19:36 | RADIOLOGY REPORT ---
Clinical History ELBOW PAIN Comparison None Without Contrast JOEYDYLAN, [id number] TECHNIQUE: 2 views of the right ulnar and radius 3 views of the right elbow FINDINGS: No evidence of acute displaced fracture or dislocation. The joints are unremarkable.No significant mynor int effusion. Atherosclerotic vascular calcification .The soft tissues are unremarkable. IMPRESSION: No evidence of acute osseous abnormality. This report was electronically signed by Maged Brito MD on 07/04/2024 7:32:34 PM.
[2024-07-04 19:46] LABS: PLATELET ESTIMATE NORMAL
[2024-07-04 19:51] LABS: ANISOCYTOSIS 3+; MICROCYTOSIS 2+
[2024-07-04] MEDS: furosemide 40mg/4ml inj IV ONE (20:40)
[2024-07-04] MEDS: ceFAZolin 2gm in dextrose, iso 50 ML IV ONE (20:45)
[2024-07-04 20:46] LABS: C-REACTIVE PROTEIN 11.72 MG/DL (0.0-0.5)
[2024-07-04 20:47] LABS: INR 3.8 INR; PROTHROMBIN TIME 34.5 SECONDS (9.0-12.0)
[2024-07-04] MEDS ORDERED: acetaminophen 325mg tablet PO PRN ×2 (21:30)
[2024-07-04] MEDS ORDERED: ondansetron/PF 4mg/2ml inj IV PRN (21:30)
[2024-07-04] MEDS ORDERED: magnesium Cl slow-release 64mg tablet PO PRN (21:30)
[2024-07-04] MEDS ORDERED: HYDROcodone/acetaminophen 5mg/325mg tablet PO PRN (21:30)
[2024-07-04] MEDS ORDERED: mag hydrox/Alum hydrox/simeth 30ml oral suspension PO PRN (21:30)
[2024-07-04] MEDS ORDERED: magnesium sulf-water 2g/50mL 50 ML IV PRN (21:30)
[2024-07-04] MEDS ORDERED: magnesium sulf-water 4G/100mL 100 ML IV PRN (21:30)
[2024-07-04] MEDS ORDERED: magnesium hydroxide 30ml (MOM) UD suspension PO PRN (21:30)
[2024-07-04] MEDS ORDERED: potassium Cl 20 mEq SR tablet PO PRN ×2 (21:30)
[2024-07-04] MEDS ORDERED: potassium Cl 40MEQ/1/2NS 520ml 520 ML IV PRN (21:30)
[2024-07-04 21:53] LABS: D-DIMER 0.55 MG/L FEU (0-0.50)
[2024-07-04 21:59] LABS: MAGNESIUM 2.4 MG/DL (1.5-2.4)
[2024-07-04 22:03] LABS: HEMOGLOBIN A1C 4.7 % (4.5-6.2)
[2024-07-04] MEDS: PERFLUTREN PROTEIN-A MICROSPHR (Optison) 0.22 MG/ML 3ML VIAL IV ONE (22:04)
[2024-07-04] MEDS: K and/or MAG REPLACEMENT MC SCH (22:06)
[2024-07-04] MEDS: aspirin 325mg tablet PO ONE (22:09)
[2024-07-04] MEDS: HYDROcodone/acetaminophen 10/325mg tab PO PRN (22:11)
[2024-07-04] MEDS ORDERED: FURO-149 PO (22:19)
[2024-07-04] MEDS ORDERED: LISI40TA13 PO (22:19)
[2024-07-04] MEDS ORDERED: ASPI-1265 PO (22:19)
--- NOTE | 2024-07-04 22:25 | HISTORY AND PHYSICAL-Residence ---
History & Physical Providers to CC Resident Creating Document: GLORIA BERNAL, RES ~ History of Present Illness Primary Medical Doctor: Dr. Villafuerte Reason for Admit\Complaint: Left arm cellulitis History of Present Illness The patient is an 88 year year old male with past medical history of CHF, CAD s/p CABG, hypertension, AFib, CKD, hypothyroidism, presented to the ED with complaints of worsening left forearm swelling. The patient bumped his left forearm to the corner of a car window five days back and sustained a small laceration on the dorsal side. The arm gradually developed redness and swelling which worsened over time. It started draining pus from the laceration. No complaint of fevers. The patient also sees Dr. Mcneal for heart failure and CAD. He visited him on Saturday and he was asked to increase his dose of Lasix to 40 mg twice daily for three days and continue 40 mg once daily thereafter. He followed the recommendations. He has been feeling short of breath along with chest pressure on exertion. This has been going on for a week. He has been compliant with his medications. Patient denies fever, palpitations, nausea, vomiting, diarrhea, constipation, burning micturition. He complains of cough with productive sputum which is chronic. He also complains of lower abdominal pain. Allergies: Coded Allergies: No Known Allergies (Unverified , 03/13/23) Home Medications Home Medications Active Folitab 500 Caplet (Ferrous Sulfate/Vit C/FA) 105 Mg Iron-500 Mg-800 Mcg Tablet.er 1 Tab PO DAILY 30 Days Multivitamins with Iron (Multivitamin W/Iron, Minerals) 1 Each Tab.chew 1 Tab PO DAILY 30 Days Mucinex (Guaifenesin) 600 Mg Tablet.sa 600 Mg PO Q6H Lasix (Furosemide) 40 Mg Tablet 1 Tab PO BID 30 Days Lisinopril* (Lisinopril) 40 Mg Tablet 1 Tab PO DAILY 30 Days Lipitor* (Atorvastatin Calcium) 40 Mg Tablet 1 Tab PO DAILY 30 Days Reported Warfarin Sodium 5 Mg Tablet 1 Tab PO MTH 30 Days Warfarin Sodium 5 Mg Tablet 2.5 Mg PO SUTUWEFRSA 30 Days 2.5MG DAILY EXCEPT ON MO GIVE 5MG Lopressor tablet (Metoprolol Tartrate) 25 Mg Tablet 0.5 Tab PO Q12H 30 Days Hold for SBP below 100mm Hg Hold for Heart Rate below 60. Ultracet* (Tramadol/Acetaminophen) 1 Each Tablet 2 Tab PO Q6H PRN Synthroid (Levothyroxine Sodium) 125 Mcg Tablet 1 Tab PO DAILY 30 Days Nitrostat SL* (Nitroglycerin) 0.4 Mg Tablet 1 Tab SL Q5MIN PRN Past Medical History Past Medical History CAD s/p CABG AFib on warfarin Hypertension CKD Hypothyroidism Obstructive sleep apnea Hyperlipidemia Past Surgical History Surgical History Comment Five-vessel CABG in 2014 Family history: Father-DC at age 79 Family History Family History: (CAD) Coronary arteriosclerosis FATHER, , Age: 79 (DM Type 2) Diabetes mellitus type 2 sister sister brothers2 FH: pneumonia MOTHER, , Age: 94 Past Social History Social History Comment The patient lives in his house by himself. His significant other passed last week. He does not remember the name of his primary care physician. He sees Dr. Mcneal for CAD, AFib and CHF. Uses a walker to ambulate. Quit smoking in 1987. Denies alcohol and other illicit drug abuse. Alcohol Use: None Drug Use: None Lives with: Spouse Lives In: Home Occupation: retired ROS ROS Reviewed in full. Negative except for pertinent positives in HPI. Constitutional: Denies: fever Respiratory: Reports: cough, orthopnea, shortness of breath Cardiovascular: Denies: chest pain Gastrointestinal: Denies: abdomen distended, abdominal pain, nausea, vomiting Exam Vitals: Vital Signs Date Time Temp Pulse Resp B/P (MAP) Pulse Ox O2 Delivery O2 Flow Rate FiO2 07/04/24 22:11 18 07/04/24 21:46 88 113/53 (73) 97 07/04/24 17:57 98.6 General: Elderly male, alert and oriented x4, not in acute distress Head: Normocephalic with an atraumatic Eyes: Pupils- 3mm, reacting to light, conjunctiva- anicteric Nose and throat: No polyps, septum- normal, no mucosal ulcers Neck: Supple, no lymphadenopathy, no carotid bruit Respiratory: Bibasilar crackles heard Cardiac: S1-S2 heard, rhythm irregular, no gallop/murmur Abdomen: non distended, mild lower abdominal tenderness present, no organomegaly, bowel sounds - heard Extremities: Left forearm swelling, erythema extending till about the elbow, left hand swelling without erythema, weeping 3+ edema on left forearm, a tear on left dorsal forearm draining pus, nontender Left leg lymphedema, right leg chronic venous stasis, mild bilateral calf tenderness Skin: warm and dry, no rash, no purpura Neuro: No focal deficit, gross cranial nerve exam - normal Diagnostic Data Last Recorded Lab Results: 07/04/24181307/04/241813 Diagnostic Data: Laboratory Tests Test 07/04/24 18:14 Prothrombin Time 34.5 SECONDS (9.0-12.0) H INR International Normalized Ratio 3.8 INR D-Dimer 0.55 MG/L FEU (0-0.50) H D-Dimer Comment Coagulation Comments Advance Care Planning Advanced Care plannin - 30 Minutes Additional Plan An 88-year-old male with past medical history of CAD s/p CABG, AFib on warfarin, CHF, hypertension, hypothyroidism, DUSTIN, CKD, presented with complaints of worsening left forearm swelling and erythema. He is being admitted into the hospital for the management of left arm cellulitis and CHF exacerbation. Plan: Left forearm cellulitis secondary to trauma Leukocytosis 12.6 with neutrophilia, elevated ESR 23, normal procalcitonin, lactic acid, elevated CRP 11.72. Afebrile. X-ray of left forearm and elbow showed no abnormalities. Weeping edema. Follow up with CT to look for necrotizing fascitis. Surgery consultation pending. Follow up with [facility]. Patient received IV cefazolin in the ER. Starting the patient on IV vancomycin, ceftriaxone and clindamycin to cover Gram-positive, negative, anaerobe and for toxin inhibition. [place] area of erythema to monitor cellulitis progression. Limb elevation. Venous ultrasound to look for DVT. Mildly elevated dimer 0.55. Acute exacerbation of CHFpEF ProBNP 8966, moderate right pleural effusion. Patient not requiring any oxygen currently. Patient takes 40 mg Lasix once daily at home. Started the patient on IV Lasix 40 mg b.i.d. Consider repeating another x-ray chest tomorrow for possible requirement of thoracentesis. Follow up with the echocardiogram. Echo 02/2023-EF 65%, RVSP 57, mild to moderate TR. NSTEMI vs type 2 DC Elevated troponins-397, 379, 422. Patient complains of mild chest pressure. Aspirin 324 mg. Nitro paste on chest 1 inch. Continue home warfarin. INR 3.8. Follow up with serial EKG and troponins 4 hours apart. Atrial fibrillation EKG shows AFib with controlled ventricular rate. Continue home metoprolol tartrate 12.5 mg twice daily. Continue home warfarin. JEANNE vs CKD stage III Continue monitoring BMP. Anemia of chronic disease Hb 7.3. Appears to be in baseline. Type and screen done. CAD s/p CABG Hyperlipidemia Continue aspirin 81 mg daily, atorvastatin 40 mg daily. Hypothyroidism Continue home levothyroxine. Code Status: Full code DVT Prophylaxis: Warfarin Analgesia/Sedation: Tylenol, [place] Lines/Tubes: PIV Nutrition: Heart healthy diet PT: Ordered Disposition: [facility] Follow up with CT and consult surgery. I saw and evaluated the pt with the resident team I agree with assessment and plan as documented Gloria Bernal MD Internal Medicine Resident PGY-1 Date of Service: July 04, 2024 Billing Provider: GIOVANNI ESTRADA MD, SOWMYA MANJARI, RES July 04, 2024 22:25 GIOVANNI ESTRADA MD July 05, 2024 05:58
[2024-07-04 22:49] LABS: BILIRUBIN,URINE NEGATIVE (Neg); CLARITY,URINE CLEAR (Clear); COLOR,URINE YELLOW (Yellow); GLUCOSE, URINE NEGATIVE (Neg); KETONES,URINE NEGATIVE (Neg); LEUKOCYTE ESTERASE ,URINE SMALL (Neg); NITRITES, URINE NEGATIVE (Neg); OCCULT BLOOD,URINE TRACE-INTACT (Neg); PH,URINE 5.5 (4.8-8.0); PROTEIN,URINE NEGATIVE (Neg); UROBILINOGEN,URINE 0.2 E.U/dL (0.2-1.0)
[2024-07-04] MEDS: metoprolol tartrate 50mg tablet PO ONE (22:55)
[2024-07-04 22:59] LABS: UA COLLECTION TYPE NON-SPECIFIED
[2024-07-04 23:00] LABS: BACTERIA,URINE FEW /HPF (Neg); RBC,URINE 0-2 /HPF (0-2); SQUAMOUS EPITHELIAL CELL,UR NONE SEEN /LPF (FEW); WBC,URINE 0-4 /HPF (0-4)
[2024-07-04] MEDS ORDERED: VANCOMYCIN 2GM/400ML H20 (PEG) 400 ML IV ONE (23:20)
[2024-07-04 23:24] LABS: THYROID STIMULATING HORMONE 1.28 ulU/ml (0.34-4.50)
[2024-07-04] MEDS: clindamycin 150mg capsule PO SCH (23:56)
[2024-07-05] VITALS (12 sets, daily range): BP systolic 97–140; BP diastolic 42–70; PULSE 71–100; RESP 15–26; TEMP 96.9–99.1; O2SAT 90–96
[2024-07-05] MEDS: CefTRIAXone/D5W-Rocephin 1gm 50 ML IV SCH
[2024-07-05] MEDS: atorvastatin 20mg tablet PO STA
[2024-07-05] MEDS ORDERED: VANCOMYCIN 2GM/400ML H20 (PEG) 400 ML IV ONE (03:00)
[2024-07-05] MEDS: vancomycin/NS 1 GM ADD-VANTAGE 250 ML IV SCH (03:37)
[2024-07-05] MEDS: nitroGLYCERIN 1gm ointment UD TP ONE (03:55)
[2024-07-05] MEDS ORDERED: CLINDAMYCIN 600mg IN NS 50ML 50 ML IV SCH (03:55)
--- NOTE | 2024-07-05 04:45 | ELECTROCARDIOGRAPH REPORT ---
[facility] Test Date: 2024-07-05 Test Time: 04:41:11 Pat Name: DYLAN COOK Department: [facility] 3S Patient ID: [id number] Room: [facility] [address] A Gender: M [employer] Developer: : [id number] Requested By: ARNOLD BERNAL Order Number: [id number] Reading MD: Dr. Donald Blood Measurements Intervals [place] Rate: 89 P: 0 SC: 0 QRS: 31 QRSD: 86 T: 224 QT: 451 QTc: 549 Interpretive Statements Atrial fibrillation Low voltage, extremity leads Non specific StT wave changes Electronically Signed On 07-05-2024 13:16:[address] Donald Blood Please click the below link to view image of tracing.
[2024-07-05 05:12] LABS: BASOPHILS # (AUTO) 0.1 X10'3 (0-0.2); EOSINOPHILS # (AUTO) 0.2 X10'3 (0-0.9)
[2024-07-05 05:13] LABS: BASOPHILS % (AUTO) 0.7 % (0-1); EOSINOPHILS % (AUTO) 1.9 % (0-6); LYMPHOCYTES % (AUTO) 10.1 % (21-51); MEAN PLATELET VOLUME 8.6 FL (7.4-10.4); MONOCYTES # (AUTO) 1.2 X10'3 (0-0.9); MONOCYTES % (AUTO) 11.7 % (2-12); NEUTROPHILS # (AUTO) 7.7 X10'3 (1.8-7.7); NEUTROPHILS % (AUTO) 75.6 % (42-75); WHITE BLOOD COUNT 10.2 X10'3 (4.5-11.0)
[2024-07-05 05:33] LABS: ALANINE AMINOTRANSFERASE 15 U/L (12-78); ALBUMIN 2.2 G/DL (3.4-5.0); ALBUMIN/GLOBULIN RATIO 0.6 (1.1-1.5); ALKALINE PHOSPHATASE 105 IU/L (46-116); ANION GAP 5 (8-16); ASPARTATE AMINO TRANSFERASE 42 U/L (10-37); BILIRUBIN,TOTAL 0.5 MG/DL (0.1-1.0); BLOOD UREA NITROGEN 50 MG/DL (7-18); BUN/CREATININE RATIO 24.2 (10.0-20.0); CALCIUM 8.1 MG/DL (8.5-10.1); CHLORIDE 110 MMOL/L (99-107); CREATINE KINASE 61 U/L (39-308); CREATININE 2.07 MG/DL (0.60-1.10); GLUCOSE 95 MG/DL (70-104); HDL CHOLESTEROL 23 MG/DL (35-60); LDL CHOLESTEROL 15 MG/DL (50-100); MAGNESIUM 2.3 MG/DL (1.5-2.4); SODIUM 141 MMOL/L (135-145); TOTAL CARBON DIOXIDE 26.5 MMOL/L (24-32); TOTAL PROTEIN 5.9 G/DL (6.4-8.2); TRIGLYCERIDES 60 MG/DL (20-135); eCRCL 22 ML/MIN; eGFR 31 ML/MIN
[2024-07-05 05:34] LABS: MEAN CORPUSCULAR HEMOGLOBIN 18.9 PG (27.0-31.0); MEAN CORPUSCULAR VOLUME 62.3 FL (78-98); RED BLOOD COUNT 3.53 X10'6 (4.70-6.10)
[2024-07-05 05:35] LABS: MEAN CORPUSCULAR HGB CONC 30.4 g/dL (33.0-36.5); PLATELET COUNT 254 X10'3 (140-440); RED CELL DISTRIBUTION WIDTH 20.7 % (11.5-14.5)
[2024-07-05 05:36] LABS: CHOLESTEROL < 50 MG/DL (0-200); HEMOGLOBIN 6.7 g/dl (14.0-17.9); POTASSIUM 5.7 MMOL/L (3.5-5.1)
[2024-07-05 05:49] LABS: ANISOCYTOSIS 3+; MICROCYTOSIS 2+; PLATELET ESTIMATE NORMAL
[2024-07-05 05:50] LABS: HYPOCHROMASIA 3+
[2024-07-05 05:51] LABS: ACANTHOCYTES 2+; BURR CELLS 2+; TARGET CELLS FEW
--- NOTE | 2024-07-05 06:48 | RADIOLOGY REPORT ---
INDICATION: cellulitis, suspecting necrotising fascitis COMPARISON: None TECHNIQUE: CT of the left upper extremity was performed without contrast. Volume transverse images we re obtained and reconstructed in multiple planes using bone and soft tissue algorithms. CONTRAST: None Radiation Dose Information: CTDI volume is 26.36 mGy. Dose-length product is 1233.96 mGy*cm FINDINGS: Diffuse increased soft tissue swelling and edema noted throughout the upper extremity as well as the left lateral chest and abdominal wall. Near water attenuation material tracks from the upper arm dist ally to the antecubital fossa without evidence of a discrete definable fluid collection to suggest ab scess formation. A slightly more organized fluid attenuation collection within the left lateral thoracic subcutaneous soft tissues measures up to 15.6 cm craniocaudally and 3.1 cm in transverse dimension. This material may represent dependent edema, however, phlegmonous material can not be completely excluded on this e xam. The alignment is normal. Moderate degenerative changes of the glenohumeral and acromioclavicular joints are consistent with os teoarthritic disease. The joint spaces are otherwise normal. There is no fracture, dislocation, or focal osseous lesion. Moderate dependent atelectasis is noted within the left lung base. The heart appears enlarged status post median sternotomy and there are atherosclerotic vascular calcifications. The incidentally imaged structures of the abdomen are grossly normal in appearance. IMPRESSION: 1. Ill-defined fluid collections within the anterior upper left arm extending to the antecubital evette a as well as within the left lateral thoracic wall soft tissues as discussed above with relatively po or organization and delineation to suggest abscess formation, however, infectious phlegmonous patholo gy is not excluded. 2. Left basilar atelectasis. 3. Degenerative changes of the glenohumeral and acromioclavicular joints. 4. Cardiomegaly. 5. Atherosclerotic vascular disease. All CT scans at this medical facility are performed using dose modulation techniques as appropriate t o a performed exam including the following: Automated exposure control was utilized; adjustment of th e MA and/or KV according to patient size; and use of iterative reconstruction technique.
[2024-07-05] MEDS: atorvastatin 20mg tablet PO SCH (08:17)
[2024-07-05] MEDS: levoTHYROXINE 125mcg tablet PO SCH (08:17)
[2024-07-05] MEDS: aspirin 81mg, enteric-coated 1 TAB TABLET.DR PO SCH (08:17)
[2024-07-05] MEDS: metoprolol tartrate 12.5mg (1/2 tablet) PO SCH (08:22)
[2024-07-05] MEDS: clindamycin 600mg/D5W 50ml 50 ML IV SCH (08:37)
[2024-07-05 09:10] LABS: PROTHROMBIN TIME 37.1 SECONDS (9.0-12.0)
[2024-07-05 09:11] LABS: INR 4.2 INR
--- NOTE | 2024-07-05 09:58 | VASCULAR REPORT ---
Bilateral Upper Extremity Venous Duplex Clinical History: Bilateral upper extremity swelling Comparison: None Findings: Duplex Doppler evaluation of the venous systems of the right and left lower neck and upper extremitie s including color Doppler and spectral/pulsed waveform analysis was performed. RIGHT SIDE: The internal jugular vein demonstrates appropriate compressibility and waveform variability . The subclavian vein is patent on color Doppler evaluation without intraluminal thrombus and demonstra brandan waveform variability . The visualized portion of the brachiocephalic vein is patent on color Doppler evaluation without intr aluminal thrombus and demonstrates waveform variability . The axillary vein demonstrates appropriate compressibility and waveform variability . The brachial veins demonstrate appropriate compressibility and patency on Doppler evaluation. The basilic vein demonstrates appropriate compressibility and patency on Doppler evaluation. The cephalic vein demonstrates appropriate compressibility and patency on Doppler evaluation. LEFT SIDE: The internal jugular vein demonstrates appropriate compressibility and waveform variability . The subclavian vein is patent on color Doppler evaluation without intraluminal thrombus and demonstra brandan waveform variability . The visualized portion of the brachiocephalic vein is patent on color Doppler evaluation without intr aluminal thrombus and demonstrates waveform variability . The axillary vein demonstrates appropriate compressibility and waveform variability . The brachial veins demonstrate appropriate compressibility and patency on Doppler evaluation. The basilic vein demonstrates appropriate compressibility and patency on Doppler evaluation. The cephalic vein demonstrates appropriate compressibility and patency on Doppler evaluation. Impression: No venous thrombus identified in the right or left upper extremity vessels evaluated above. If clinical concern/symptoms persist or worsen, short-interval follow-up study is suggested.
--- NOTE | 2024-07-05 09:59 | VASCULAR REPORT ---
Bilateral lower extremity venous duplex Clinical History: Pain, swelling, shortness of breath Comparison: None Technique: Duplex Doppler evaluation of the deep venous systems of both lower extremities from the common femora l veins to the popliteal veins including color Doppler and spectral/pulsed waveform analysis was perf ormed. Findings: RIGHT SIDE: The common femoral vein demonstrates appropriate compressibility and waveform variability. The femoral vein demonstrates appropriate compressibility and waveform variability. The deep femoral vein demonstrates appropriate compressibility and waveform variability. The popliteal vein demonstrates appropriate compressibility and waveform variability. There is normal compressibility at the tibioperoneal trunk. LEFT SIDE: The common femoral vein demonstrates appropriate compressibility and waveform variability. The femoral vein demonstrates appropriate compressibility and waveform variability. The deep femoral vein demonstrates appropriate compressibility and waveform variability. The popliteal vein demonstrates appropriate compressibility and waveform variability. There is normal compressibility at the tibioperoneal trunk. Impression: No right or left femoropopliteal venous thrombosis. Bilateral greater saphenous veins and left peroneal vein are suboptimally visualized.
--- NOTE | 2024-07-05 11:38 | PROGRESS NOTE ---
Progress Note ID Providers to CC ~ Progress Note Progress Note: pt seen-needs forearm u/s-? abscess MARIANNA MASCORRO MD July 05, 2024 11:38
[2024-07-05] MEDS: furosemide 40mg/4ml inj IV SCH (11:52)
[2024-07-05 14:01] LABS: CREATININE 2.14 MG/DL (0.60-1.10); POTASSIUM 5.1 MMOL/L (3.5-5.1); eCRCL 22 ML/MIN; eGFR 29 ML/MIN
--- NOTE | 2024-07-05 14:21 | CARDIOLOGY REPORT ---
APPROVED REPORT EXAM: Comprehensive 2D, Doppler, and color-flow Echocardiogram. Patient Location: 3009 A Blood Pressure: 123/53 mmHg Heart Rate: 79-94 bpm Rhythm: Atrial Fibrillation Indications Congestive Heart Failure Arm Swelling (Cellultis) Hx of CAD CABG X 5 (2014) Hx of A-Fib Hypertension CKD DUSTIN Optometric Tech: MD Siva Previous echo: 03/14/2023 [facility] EF:65% 2D Dimensions RVDd 4.4 cm LA Diam5.1 cm IVSd 1.1 (0.7-1.1cm) LVDd 5.9 cm PWd 1.1 (0.7-1.1cm) IVSs 1.2 (0.8-1.2cm) RA Minor5.4 cmLVDs 4.9 (2.5-4.0cm) PWs 1.6 (0.8-1.2cm) LVOT Diameter 2.10 (1.8-2.4cm) LVEF(%) 36.4 (>50%) IVC 27.67 mm FS (%) 17.8 % SV 64.1 ml CO 5.4 L/min M-Mode Dimensions RVDd 4.13 (2.1-3.2cm) Left Atrium(MM) 5.43 (2.5-4.0cm) IVSd 0.80 (0.7-1.1cm) LVDd 5.91 (4.0-5.6cm) Aortic Root 3.61 (2.2-3.7cm) PWd 0.96 (0.7-1.1cm) Aortic Cusp Exc 1.87 (1.5-2.0cm) IVSs 1.09 cm MV EPSS 1.2 (<0.5cm) LVDs 4.99 (2.0-3.8cm) FS (%) 16 % PWs 1.26 cm ESV(Teich) 117.6 ml Aortic Valve AoV Peak Connor. 137.1 cm/s AoV VTI 31.2 cm AO Peak GR. 7.5 mmHg AO Mean GR. 4 mmHg LVOT VTI 23.14 cm LVOT Peak Connor. 104.0 cm/s OXANA(VTI)/BSA 2.58 cm2/m2 OXANA (VTI) 2.58 cm2 Mitral Valve MV E Velocity 101.5 cm/s MV Peak Gr. 4 mmHg MV DECEL TIME 264 ms MV A Velocity 39.9 cm/s MV Mean Gr. 1 mmHg E/A Ratio 2.5 MVA (PHT) 3.06 cm2 MV VLpc674.3 cm/s MV VMean52.2 cm/sMV VTI20.2 cm Tricuspid Valve TR P. Velocity 309 cm/s RAP ESTIMATE 15 mmHg TR Peak Gr. 38 mmHg RVSP 53 mmHg LEFT VENTRICLE Normal LV size with moderately reduced function. Abnormal septal motion. Inferior segments are hypoki netic and septal segments appear hypokinetic. Mild concentric hypertrophy. There is moderate LV systo lic dysfunction present. Overall estimated ejection fraction is about 40%. RIGHT VENTRICLE Right ventricle is moderate to severely dilated with reduced function. Estimated PA systolic pressure is 53 mmHg. ATRIA Severe biatrial enlargement. AORTIC VALVE Trileaflet AV appears sclerotic without stenosis or insufficiency. MITRAL VALVE Mild MV annular calcification without significant stenosis. Mild regurgitation. TRICUSPID VALVE TV appears structurally normal with moderate regurgitation. Estimated PA systolic pressure of 53 mm o f mercury PULMONIC VALVE Normal PV without stenosis, moderate insufficiency. GREAT VESSELS The aortic root is normal in size. IVC is dilated and collapses less than 50% with inspiration. PERICARDIUM Normal pericardium. No pericardial effusion seen. Other Information Study Quality: Fair Conclusion There is moderate LV systolic dysfunction present. Overall estimated ejection fraction is about 40%. Normal LV size with moderately reduced function. Abnormal septal motion. Inferior segments are hypo kinetic and septal segments appear hypokinetic. Mild concentric hypertrophy. Right ventricle is moderate to severely dilated with reduced function. Estimated PA systolic pressure is 53 mmHg. Trileaflet AV appears sclerotic without stenosis or insufficiency. Mild MV annular calcification without significant stenosis. Mild regurgitation. TV appears structurally normal with moderate regurgitation. Estimated PA systolic pressure of 53 mm of mercury Normal PV without stenosis, moderate insufficiency. Normal pericardium. No pericardial effusion seen.
[2024-07-05] MEDS: EMPAGLIFLOZIN 10 MG TABLET PO SCH (14:36)
[2024-07-05] MEDS: lisinopril 10 MG tablet PO SCH (14:36)
[2024-07-05] MEDS: phytonadione inj. 10 MG in normal saline 100ml IV soln 100 ML IV ONE (15:57)
--- NOTE | 2024-07-05 17:20 | PROGRESS NOTE- Residence ---
Progress Note - Resident Providers to CC Resident Creating Document: AYDEN PETTY RES CC: ALEXANDRA WU MD ~ Antibiotic Timeout Antibiotic Ordered?: Yes Subjective Patient was examined at bedside. Patient was subjectively feeling better, has pain in the left upper extremity. Objective Vital Signs Date Time Temp Pulse Resp B/P (MAP) Pulse Ox O2 Delivery O2 Flow Rate FiO2 07/05/24 15:49 98.1 100 17 125/70 07/05/24 15:00 93 Room Air Result Diagram: 07/05/24 0500 07/05/24 1335 General: Alert, awake, oriented,in acute distress HEENT: PERRLA, no icterus, pallor, lymphadenopathy, carotid bruit Respiratory system: Bilateral vesicular breath sounds heard, inspiratory crackles present in bilateral lung pruett CVS: Irregular heartbeat, S1-S2 heard, no murmurs/rubs/gallop GI: Soft, nontender, no organomegaly, no guarding/rigidity, bowel sounds present Neuro: No focal neurological deficits present Extremities: Erythematous, warm, swollen forearm until lb on the left side, fluctuant heart with irregular borders abscess present, draining pus. Right leg chronic venous stasis, mid calf bilateral calf tenderness, left leg lymphedema present Skin: Warm and dry Coagulation Studies Laboratory Tests Test 07/04/24 18:14 07/05/24 08:32 D-Dimer 0.55 MG/L FEU (0-0.50) H D-Dimer Comment Prothrombin Time 37.1 SECONDS (9.0-12.0) H INR International Normalized Ratio 4.2 INR *H Coagulation Comments Assessment Assessment An 88-year-old male with past medical history of CAD s/p CABG, AFib on warfarin, CHF, hypertension, hypothyroidism, DUSTIN, CKD, presented with complaints of worsening left forearm swelling and erythema. He is being admitted into the hospital for the management of left arm cellulitis and CHF exacerbation. Plan Plan Left forearm cellulitis secondary to trauma Necrotizing fasciitis and DVT ruled out Sepsis, POA Leukocytosis, improving CT forearm: Ill-defined fluid collections within the anterior upper left arm extending to the antecubital fossa as well as within the left lateral thoracic wall soft tissues as discussed above with relatively poor organization and delineation to suggest abscess formation, however, infectious phlegmonous pathology is not excluded. IV Zosyn and vancomycin (day 03/06) Follow up with ultrasound forearm as per Dr. Gomez's recommendations Limb elevation. Venous ultrasound ruled out DVT. Aspiration bilateral pneumonia Chest x-ray: Moderate right pleural effusion with adjacent atelectasis. Small left pleural fluid. Continue antibiotics as per above IV methylprednisolone 40 mg q.12h Incentive spirometry Aspiration precautions Swallow eval Acute exacerbation of CHFrEF, EF: 35-40 % Echo: EF: 40%, RVSP: 53 mmHg. Abnormal septal motion. Inferior segments are hypokinetic and septal segments appear hypokinetic. Mild concentric hypertrophy. Continue IV Lasix once daily GDM T: Lisinopril 10 mg, spironolactone 25 mg, Jardiance 10 mg, metoprolol tartrate 12.5 mg b.i.d. Strict Is&Os Hypokinetic inferior and septal segments seems to be a new finding, patient might benefit from Lexiscan in a.m. 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 Started GDM T and other management as per Dr. Mcneal Type 2 NM Troponins downtrending. Most likely secondary to infection and inflammation Chronic Atrial fibrillation, rate controlled EKG shows AFib with controlled ventricular rate. Continue home metoprolol tartrate 12.5 mg twice daily. Held warfarin in view of supratherapeutic INR Supratherapeutic INR Hold warfarin Vitamin K 10 mg IV INR daily JEANNE on CKD stage III Baseline creatinine: 1.25, EGFR: 31 Elevated creatinine Continue monitoring BMP. Microcytic anemia Transfusion of 1 unit PRBC done H and H monitoring q.6h Follow up with stool occult test, iron studies We will consult GI in a.m. CAD s/p CABG Hyperlipidemia Continue aspirin 81 mg daily, atorvastatin 40 mg daily. Hypothyroidism TSH: 1.28 Continue home levothyroxine. Code Status: Full code DVT Prophylaxis: SCD Nutrition: Heart healthy diet PT: Ordered Disposition: Continue care in PCU unit, monitor INR daily, awaiting ultrasound of the forearm, GI consult in a.m, Lexiscan in a.m. Critical care: 45 minutes Ayden Petty MD Internal Medicine, PGY 1 Date of Service: July 05, 2024 Billing Provider: ALEXANDRA WU MD, SIVA, RES July 05, 2024 17:20
[2024-07-05] MEDS ORDERED: aminophylline 500mg/20ml vial IV PRN (17:30)
[2024-07-05] MEDS ORDERED: metoprolol tartrate 1mg/ml inj IV PRN (17:30)
[2024-07-05] MEDS ORDERED: nitroGLYCERIN 0.4mg SUBLingual tab SL PRN (17:30)
[2024-07-05 17:31] LABS: % IRON SATURATION 3 % (11-46); IRON 9 UG/DL (53-167); TOTAL IRON BINDING CAPACITY 277 UG/DL (259-388)
[2024-07-05 17:36] LABS: FERRITIN 25 NG/ML (26-388)
[2024-07-05] MEDS: methylPREDNISolone sod succ/PF 40mg inj. IV SCH (20:25)
[2024-07-05] MEDS: piperacillin/tazo 4.5gm/100ml 100 ML IV SCH (20:25)
[2024-07-05 21:58] LABS: HEMATOCRIT 24.5 % (42.0-52.0); HEMOGLOBIN 7.3 g/dl (14.0-17.9); MEAN CORPUSCULAR HEMOGLOBIN 19.7 PG (27.0-31.0); MEAN CORPUSCULAR HGB CONC 29.6 g/dL (33.0-36.5); MEAN CORPUSCULAR VOLUME 66.6 FL (78-98); MEAN PLATELET VOLUME 8.5 FL (7.4-10.4); PLATELET COUNT 247 X10'3 (140-440); RED BLOOD COUNT 3.68 X10'6 (4.70-6.10); RED CELL DISTRIBUTION WIDTH 22.8 % (11.5-14.5)
[2024-07-06] VITALS (18 sets, daily range): BP systolic 108–135; BP diastolic 37–62; PULSE 63–99; RESP 14–20; TEMP 96.9–98.8; O2SAT 93–98
--- NOTE | 2024-07-06 02:23 | CONSULTATION ---
DATE OF CONSULTATION: 07/05/2024 DICTATING PHYSICIAN: ADRIÁN Mcneal MD CARDIOLOGY CONSULTATION REQUESTING PHYSICIAN: Dr. Petty __ IDENTIFICATION: An 88-year-old male who came in for evaluation. The patient is an 88-year-old male with history of diabetes, hypertension, hyperlipidemia, CAD, status post CABG, who is presented with left upper extremity cellulitis, CHF, and anemia with possible GI bleed. HISTORY OF PRESENT ILLNESS: The patient has history of CAD that dates back to 2014 and aortic CABG x5 by Dr. Espino at [facility]. At that time, he got ROSS to LAD, sequential SVG to diagonal and OM1, and posterolateral branch of the circumflex artery and SVG to PDA. The patient had a coronary angiography on 11/15/2018. At that time, his GFR was 50-55%, LVDP of 20 mmHg with no gradient across the aortic valve. PA pressure 63/30 mmHg, left main 80%, LAD severe disease, proximal and distal circumflex 80%, RCA proximal 100%. At that time, 4 or 5 grafts were patent. PDA was presumed to be occluded. The patient had a PET scan on 10/08/2023, which was negative for ischemia. The patient has history of chronic atrial fibrillation and has been rate controlled with metoprolol, anticoagulated with Coumadin. His INR is being followed by [facility]. The patient does also have underlying sick sinus syndrome. The patient has a history of chronic diastolic heart failure. Back in February 2023, his ejection fraction was 65%. Echocardiogram from this hospitalization on 07/05/2024 shows ejection fraction 40%. PA systolic pressure 53 mmHg. Mild MR, moderate TR, and moderate pulmonic regurgitation. The patient presented to the emergency room on 07/04/2024 with left arm swelling. He bumped his left forearm last week and then it began swelling over the last several days and now it is draining and hence he was hospitalized and he also had a surgical consult with Dr. Gomez. He was also found to have anemia with hemoglobin of 7.3, for which he has been getting blood transfusion of 1 unit today. Generally, the patient ambulates just with a walker, which he has been using for 1 plus year and then ambulates 50-100 feet before dyspnea while going uphill. Also has lower extremity edema. MEDICATIONS: Include aspirin 81 mg , metoprolol 25 mg half tablet p.o. daily, lisinopril 40 mg p.o. daily, Lasix 40 mg p.o. b.i.d., atorvastatin 40 mg p.o. daily, levothyroxine 25 mcg p.o. daily, and vitamin D3. PAST MEDICAL HISTORY: As mentioned earlier. * Diabetes. * Hypertension. * Hyperlipidemia. * CAD, status post CABG. * Chronic atrial fibrillation. * Systolic heart failure. * Sick sinus syndrome. * Aortic and tricuspid regurgitation with pulmonary hypertension. * Sleep apnea. * Hypothyroidism. PAST SURGICAL HISTORY: Cholecystectomy in 1986, knee replacement in 2009, CABG x5 in 2014, left lower extremity vascular bypass in 2015, soft tissue infection 2016. The patient had pleural effusion with right thoracentesis in 11/2017, used to be seen by Dr Fortune FAMILY HISTORY: His father at the age of 79. Mother at the age of 94. The patient's significant other is this June 2024. SOCIAL HISTORY: Tobacco: Past smoker, quit in 1986, started smoking at age 11. Quit alcohol in 1986 as well. Has been using walker since 2018. REVIEW OF SYSTEMS: HEENT: Wears glasses, mild hearing impairment. RESPIRATORY: Exertional shortness of breath. MUSCULOSKELETAL: Arthralgias. CENTRAL NERVOUS SYSTEM: left upper extremity cellulitis. PHYSICAL EXAMINATION: VITAL SIGNS: Temperature normal, pulse 88, blood pressure 120/70. NECK: No JVD. Carotids are equally well felt. CARDIAC: Irregularly irregular. Variable S1, S2 normal. No S3, S4. LUNGS: Decreased breath sounds bibasilarly. ABDOMEN: Obese, soft. Bowel sounds present. EXTREMITIES: 2+ edema. Left upper extremity cellulitis present. LABORATORY DATA: Include 07/04/2024; WBC 12.6, hemoglobin 7.3, hematocrit 24.2. Sodium 143, potassium 5.5, chloride 109, carbohydrate 27. BUN 50, creatinine 2.13. INR was 3.8. ASSESSMENT AND PLAN: * An 88-year-old male with left upper extremity cellulitis, on antibiotics, being consulted by surgeon. * History of anemia, hemoglobin of 7.3, got 1 unit of PRBC. Being evaluated for causes of anemia. * Systolic heart failure. The patient's ejection fraction has declined compared to 65% back in 03/14/2023 to 40% as of today. Recommend 1500 cc fluid restriction, low-salt diet to optimize GDMT therapy. The patient currently is already on metoprolol and lisinopril. Consider adding SGLT2 inhibitors. The patient is not a good candidate for spironolactone because of hyperkalemia and CKD. * Chronic atrial fibrillation, rate controlled, Coumadin is on hold because of suspected bleeding. * Diabetes, hypertension, hyperlipidemia. Extensively counseled on coronary risk factor modification to keep LDL less than 55 mg per mmHg and hemoglobin less than 7%. * Peripheral vascular disease with lower extremity revascularization [place] [address] Gomez in [facility]. * Sick sinus syndrome. Continue to monitor on telemetry. Other comorbidities include obesity, anemia, hypothyroidism, history of sleep apnea, the patient is on CPAP since 2018. * Prior history of smoking. * History of pleural effusion; back in 2018, had a moderate left pleural effusion with a 3 x 2 cm round lesion with minimal FDG uptake BV MD Fredis TID: [id number] RECEIPT: [id number] ANGELIA/PRATIK/JAMARCUS MTDD
[2024-07-06] MEDS: VANCOMYCIN 750MG IV in NS 250 ML IV SCH (03:39)
[2024-07-06] MEDS ORDERED: VANCOMYCIN/H2O 750mg/150mL PB 150 ML IV SCH ×2 (04:00→05:00)
[2024-07-06 04:53] LABS: INR 1.7 INR; PROTHROMBIN TIME 16.8 SECONDS (9.0-12.0)
[2024-07-06 04:59] LABS: ALANINE AMINOTRANSFERASE 17 U/L (12-78); ALBUMIN 2.1 G/DL (3.4-5.0); ALBUMIN/GLOBULIN RATIO 0.6 (1.1-1.5); ALKALINE PHOSPHATASE 116 IU/L (46-116); ANION GAP 8 (8-16); ASPARTATE AMINO TRANSFERASE 26 U/L (10-37); BILIRUBIN,TOTAL 0.6 MG/DL (0.1-1.0); BLOOD UREA NITROGEN 53 MG/DL (7-18); BUN/CREATININE RATIO 26.8 (10.0-20.0); CALCIUM 8.1 MG/DL (8.5-10.1); CHLORIDE 110 MMOL/L (99-107); CREATININE 1.98 MG/DL (0.60-1.10); GLUCOSE 140 MG/DL (70-104); MAGNESIUM 2.2 MG/DL (1.5-2.4); POTASSIUM 5.3 MMOL/L (3.5-5.1); SODIUM 143 MMOL/L (135-145); TOTAL CARBON DIOXIDE 25.5 MMOL/L (24-32); TOTAL PROTEIN 5.7 G/DL (6.4-8.2); eCRCL 23 ML/MIN; eGFR 32 ML/MIN
[2024-07-06 05:07] LABS: HEMATOCRIT 24.6 % (42.0-52.0); HEMOGLOBIN 7.5 g/dl (14.0-17.9); MEAN CORPUSCULAR HEMOGLOBIN 19.7 PG (27.0-31.0); MEAN CORPUSCULAR HGB CONC 30.6 g/dL (33.0-36.5); MEAN CORPUSCULAR VOLUME 64.4 FL (78-98); MEAN PLATELET VOLUME 8.7 FL (7.4-10.4); PLATELET COUNT 237 X10'3 (140-440); RED BLOOD COUNT 3.82 X10'6 (4.70-6.10); RED CELL DISTRIBUTION WIDTH 22.3 % (11.5-14.5); WHITE BLOOD COUNT 7.3 X10'3 (4.5-11.0)
[2024-07-06 06:35] LABS: MEAN CORPUSCULAR HEMOGLOBIN 19.4 PG (27.0-31.0); MEAN PLATELET VOLUME 8.8 FL (7.4-10.4); PLATELET COUNT 240 X10'3 (140-440); RED BLOOD COUNT 3.83 X10'6 (4.70-6.10); RED CELL DISTRIBUTION WIDTH 22.9 % (11.5-14.5); WHITE BLOOD COUNT 7.2 X10'3 (4.5-11.0)
[2024-07-06 06:57] LABS: BASOPHILS % (AUTO) 0.2 % (0-1); EOSINOPHILS % (AUTO) 0 % (0-6); LYMPHOCYTES # (AUTO) 0.4 X10'3 (1.1-4.8); MEAN PLATELET VOLUME 8.6 FL (7.4-10.4); MONOCYTES # (AUTO) 0.1 X10'3 (0-0.9); NEUTROPHILS # (AUTO) 6.7 X10'3 (1.8-7.7); NEUTROPHILS % (AUTO) 92.8 % (42-75); PLATELET COUNT 237 X10'3 (140-440); RED BLOOD COUNT 3.88 X10'6 (4.70-6.10); RED CELL DISTRIBUTION WIDTH 22.1 % (11.5-14.5); WHITE BLOOD COUNT 7.2 X10'3 (4.5-11.0)
[2024-07-06 07:55] LABS: HEMATOCRIT 24.9 % (42.0-52.0); HEMOGLOBIN 7.8 g/dl (14.0-17.9); MEAN CORPUSCULAR VOLUME 63.6 FL (78-98)
[2024-07-06 07:56] LABS: MEAN CORPUSCULAR HGB CONC 31.2 g/dL (33.0-36.5)
--- NOTE | 2024-07-06 08:17 | RADIOLOGY REPORT ---
Exam: US US SOFT TISSUE MASS Date: 07/06/2024 07:20 AM Clinical History: forearm abcess, Left Comparison: None Technique: Targeted sonographic evaluation of the soft tissues of the SR[facility] was obtained utilizing grayscale and color Doppler imaging. Findings: There is no evidence for drainable collection. There is no evidence for solid or cystic mass in the site. No vascular abnormalities identified at this site. IMPRESSION: No definite sonographic abnormality is identified in the soft tissues of the SRMC.
[2024-07-06 08:18] LABS: HEMATOCRIT 25.6 % (42.0-52.0); HEMOGLOBIN 7.8 g/dl (14.0-17.9); MEAN CORPUSCULAR HEMOGLOBIN 19.7 PG (27.0-31.0); MEAN CORPUSCULAR HGB CONC 30.6 g/dL (33.0-36.5); MEAN CORPUSCULAR VOLUME 64.2 FL (78-98)
[2024-07-06] MEDS ORDERED: spironolactone 25 MG tablet PO SCH (08:30)
--- NOTE | 2024-07-06 09:03 | PROGRESS NOTE ---
Progress Note ID Providers to CC ~ Progress Note Progress Note: us neg for abscess MARIANNA MASCORRO MD July 06, 2024 09:03
[2024-07-06 09:55] LABS: WHITE BLOOD COUNT 7.1 X10'3 (4.5-11.0)
[2024-07-06 09:56] LABS: HEMOGLOBIN 7.8 g/dl (14.0-17.9); MEAN CORPUSCULAR HEMOGLOBIN 19.2 PG (27.0-31.0); MEAN PLATELET VOLUME 8.4 FL (7.4-10.4); PLATELET COUNT 248 X10'3 (140-440); RED BLOOD COUNT 4.07 X10'6 (4.70-6.10); RED CELL DISTRIBUTION WIDTH 23.1 % (11.5-14.5)
[2024-07-06 10:23] LABS: HEMATOCRIT 25.8 % (42.0-52.0); MEAN CORPUSCULAR HGB CONC 30.5 g/dL (33.0-36.5); MEAN CORPUSCULAR VOLUME 64.3 FL (78-98)
[2024-07-06] MEDS: regadenoson 0.4mg/5ml syringe IV PRN (12:22)
--- NOTE | 2024-07-06 13:56 | RADIOLOGY REPORT ---
Procedure: [facility] JANIE SCAN Exam Date: 07/06/2024 11:39 AM Reason for study/Clinical History: Abnormal findings on echo Comparison Study: [place] JANIE SCAN on DOS: 09/06/20 Myocardial Perfusion Study with SPECT Technique: The patient received an intravenous injection of 8.7 mCi of technetium-99m sestamibi whil e at rest. After a short delay, SPECT tomographic images of the heart were obtained. The patient th en went to the stress lab where they received an intravenous infusion of lexiscan utilizing standard protocol. 36 mCi of technetium-99m sestamibi was injected intravenously immediately after the start of the lexiscan infusion. Gated SPECT tomographic images of the heart were acquired and processed. Findings: There is a fixed inferoseptal defect Gated portion of the study shows septal hypokinesis. End-diastolic volume 110 cc. End systolic volume 57 cc. The left ventricular ejection fraction is 48 %. (normal greater than 50%) Impression: 1. Fixed inferoseptal defect with associated hypokinesis. 2. Ejection fraction 48%.
--- NOTE | 2024-07-06 14:51 | PROGRESS NOTE- Residence ---
Progress Note - Resident Providers to CC Resident Creating Document: AYDEN PETTY RES CC: ALEXANDRA WU MD ~ Antibiotic Timeout Antibiotic Ordered?: Yes Subjective Patient was examined at bedside. The erythema and pain in the left extremity came down. Patient states that he feels better than what he was yesterday. No acute overnight events. Patient states that he had loose tarry stools for quite a bit of time but was unable to tell the specified duration. Objective Vital Signs Date Time Temp Pulse Resp B/P (MAP) Pulse Ox O2 Delivery O2 Flow Rate FiO2 07/06/24 12:33 99 14 128/45 97 Room Air 07/06/24 11:00 97.1 Result Diagram: 07/06/24 0935 07/06/24 0420 General: Alert, awake, oriented,in acute distress HEENT: PERRLA, no icterus, pallor, lymphadenopathy, carotid bruit Respiratory system: Bilateral vesicular breath sounds heard, inspiratory crackles present in bilateral lung pruett (improving) CVS: Irregular heartbeat, S1-S2 heard, no murmurs/rubs/gallop GI: Soft, nontender, no organomegaly, no guarding/rigidity, bowel sounds present Neuro: No focal neurological deficits present Extremities: Erythematous, warm, swollen forearm until lb on the left side, fluctuant heart with irregular borders abscess present (improving) Right leg chronic venous stasis, mid calf bilateral calf tenderness, left leg lymphedema present Skin: Warm and dry Coagulation Studies Laboratory Tests Test 07/04/24 18:14 07/06/24 04:20 D-Dimer 0.55 MG/L FEU (0-0.50) H D-Dimer Comment Prothrombin Time 16.8 SECONDS (9.0-12.0) H INR International Normalized Ratio 1.7 INR # Coagulation Comments Assessment Assessment An 88-year-old male with past medical history of CAD s/p CABG, AFib on warfarin, CHF, hypertension, hypothyroidism, DUSTIN, CKD, presented with complaints of worsening left forearm swelling and erythema. He is being admitted into the hospital for the management of left arm cellulitis and CHF exacerbation. Patient was further being evaluated for underlying CAD, possible upper GI bleed. Plan Plan Left forearm cellulitis secondary to trauma Necrotizing fasciitis and DVT ruled out Sepsis, POA Underlying abscess, ruled out Normal WBC count IV Zosyn and vancomycin (day 04/06) Dr. Gomez's recommended conservative management Limb elevation. Venous ultrasound ruled out DVT. Aspiration bilateral pneumonia Chest x-ray: Moderate right pleural effusion with adjacent atelectasis. Small left pleural fluid. Continue antibiotics as per above IV methylprednisolone 40 mg q.12h Incentive spirometry Aspiration precautions Swallow eval Acute exacerbation of CHFrEF, EF: 35-40 % Echo: EF: 40%, RVSP: 53 mmHg. Abnormal septal motion. Inferior segments are hypokinetic and septal segments appear hypokinetic. Mild concentric hypertrophy. Continue IV Lasix once daily GDM T: Lisinopril 10 mg, spironolactone 25 mg, Jardiance 10 mg, metoprolol tartrate 12.5 mg b.i.d. Strict Is&Os Hypokinetic inferior and septal segments seems to be a new finding. Lexiscan: Fixed inferoseptal defect with associated hypokinesis. Awaiting Dr. Mcneal's recommendations Started GDM T and other management as per Dr. Mcneal Type 2 AL Can not exclude underlying CAD Troponins downtrending. Most likely secondary to infection and inflammation Please see above for evaluation and workup Chronic Atrial fibrillation, rate controlled EKG shows AFib with controlled ventricular rate. Continue home metoprolol tartrate 12.5 mg twice daily. Held warfarin in view of supratherapeutic INR Supratherapeutic INR, resolved Warfarin we will continue to be held in view of possible GI bleed Vitamin K 10 mg IV INR daily JEANNE on CKD stage III Baseline creatinine: 1.25, EGFR: 31 Elevated creatinine, downtrending Continue monitoring BMP. Microcytic anemia Possible upper GI bleed H&H stable H and H monitoring q.6h Follow up with stool occult test, iron studies Dr. Wolf consulted, EGD in a.m. CAD s/p CABG Hyperlipidemia Continue aspirin 81 mg daily, atorvastatin 40 mg daily. Hypothyroidism TSH: 1.28 Continue home levothyroxine. Code Status: Full code DVT Prophylaxis: SCD Nutrition: Diet as per speech therapist, Heart healthy diet, NPO after midnight PT: Ordered Disposition: Continue care in PCU unit, monitor INR daily, NPO after midnight, diet as per speech therapist, EGD in a.m. Critical care: 45 minutes Ayden Petty MD Internal Medicine, PGY 1 Date of Service: July 06, 2024 Billing Provider: ALEXANDRA WU MD, SIVA, RES July 06, 2024 14:51
[2024-07-06 16:29] LABS: MEAN PLATELET VOLUME 8.6 FL (7.4-10.4); PLATELET COUNT 255 X10'3 (140-440); WHITE BLOOD COUNT 7.4 X10'3 (4.5-11.0)
[2024-07-06 16:57] LABS: HEMATOCRIT 24.3 % (42.0-52.0); HEMOGLOBIN 7.6 g/dl (14.0-17.9); MEAN CORPUSCULAR HEMOGLOBIN 19.9 PG (27.0-31.0); MEAN CORPUSCULAR HGB CONC 31.2 g/dL (33.0-36.5); MEAN CORPUSCULAR VOLUME 63.8 FL (78-98); RED BLOOD COUNT 3.81 X10'6 (4.70-6.10)
--- NOTE | 2024-07-06 18:45 | PROGRESS NOTE ---
Progress Note Cardiology Providers to CC ~ Subjective Subjective Patient seen and examined this morning. No chest pain decreasing shortness of breath. Patient feels better. Left arm bandaged. Patient had myocardial perfusion scan today. Objective Result Diagram: 07/06/24 1609 07/06/24 0420 Objective General: Normal body habitus, no acute distress, HEENT: Sclerae clear, PERRL, gums without lesions or bleeding, oropharynx clear without erythema or exudate. Neck: Supple without enlargement of the thyroid, or lymphadenopathy, Chest: Normal size and shape, no tenderness, nonlabored breathing, Breath sounds diminished bibasilarly Heart: Irregularly irregular, variable S1. Abdomen: Soft, nontender, no organomegaly, bowel sounds present. Extremities: [id number] upper extremity cellulitis which has been bandaged. Lower extremity one to 2+ edema Coagulation Studies Laboratory Tests Test 07/04/24 18:14 07/06/24 04:20 D-Dimer 0.55 MG/L FEU (0-0.50) H D-Dimer Comment Prothrombin Time 16.8 SECONDS (9.0-12.0) H INR International Normalized Ratio 1.7 INR # Coagulation Comments Problem\Assessment\Plan Additional Plan 1. * An 88-year-old male with left upper extremity cellulitis, on antibiotics, Seen by Dr. Camarena 2. * History of anemia, hemoglobin of 7.6 after one unit of PRBC on 07/05/2024.. Being evaluated for causes of anemia. Continue iron supplementation 3. * Systolic heart failure. The patient's ejection fraction has declined compared to 65% back in 03/14/2023 to 40% as of today. Recommend 1500 cc fluid restriction, low-salt diet to optimize GDMT therapy. The patient currently is already on metoprolol and lisinopril. Noted addition of Jardiance. The patient is not a good candidate for spironolactone because of hyperkalemia and CKD. 4. * Chronic atrial fibrillation, rate controlled, Coumadin is on hold because of suspected bleeding. Coumadin can be resumed when reasonable workup completed for Unexplained anemia. 5. * Diabetes, hypertension, hyperlipidemia. Extensively counseled on coronary risk factor modification to keep LDL less than 55 mg per mmHg and hemoglobin less than 7%. 6. * Peripheral vascular disease with lower extremity revascularization [place] [address] Gomez in [facility]. 7. * Sick sinus syndrome. Continue to monitor on telemetry. Other comorbidities include obesity, anemia, hypothyroidism, history of sleep apnea, the patient is on CPAP since 2018. * Prior history of smoking. 8. * History of pleural effusion; back in 2018, had a moderate left pleural effusion with a 3 x 2 cm round lesion with minimal FDG uptake DARIN ALAMO MD July 06, 2024 18:45
[2024-07-06] MEDS ORDERED: warfarin 2.5mg tablet PO ONE (21:00)
[2024-07-06 21:06] LABS: HEMATOCRIT 25.2 % (42.0-52.0); HEMOGLOBIN 7.8 g/dl (14.0-17.9); MEAN CORPUSCULAR VOLUME 64.4 FL (78-98); MEAN PLATELET VOLUME 8.6 FL (7.4-10.4); PLATELET COUNT 255 X10'3 (140-440); RED BLOOD COUNT 3.92 X10'6 (4.70-6.10); WHITE BLOOD COUNT 6.5 X10'3 (4.5-11.0)
[2024-07-07] VITALS (24 sets, daily range): BP systolic 97–141; BP diastolic 42–75; PULSE 71–107; RESP 13–22; TEMP 97–97.8; O2SAT 94–100
[2024-07-07 04:54] LABS: BASOPHILS % (AUTO) 0.1 % (0-1); EOSINOPHILS % (AUTO) 0 % (0-6); HEMATOCRIT 24.3 % (42.0-52.0); HEMOGLOBIN 7.1 g/dl (14.0-17.9); INR 1.2 INR; LYMPHOCYTES # (AUTO) 0.4 X10'3 (1.1-4.8); LYMPHOCYTES % (AUTO) 6.8 % (21-51); MEAN CORPUSCULAR HEMOGLOBIN 19.4 PG (27.0-31.0); MEAN CORPUSCULAR HGB CONC 29.3 g/dL (33.0-36.5); MEAN CORPUSCULAR VOLUME 66.2 FL (78-98); MEAN PLATELET VOLUME 8.5 FL (7.4-10.4); MONOCYTES # (AUTO) 0.2 X10'3 (0-0.9); MONOCYTES % (AUTO) 3.9 % (2-12); NEUTROPHILS # (AUTO) 5.2 X10'3 (1.8-7.7); NEUTROPHILS % (AUTO) 89.2 % (42-75); PLATELET COUNT 232 X10'3 (140-440); PROTHROMBIN TIME 12.3 SECONDS (9.0-12.0); RED BLOOD COUNT 3.67 X10'6 (4.70-6.10); RED CELL DISTRIBUTION WIDTH 22.1 % (11.5-14.5); WHITE BLOOD COUNT 5.8 X10'3 (4.5-11.0)
[2024-07-07 04:58] LABS: ALANINE AMINOTRANSFERASE 12 U/L (12-78); ALBUMIN/GLOBULIN RATIO 0.5 (1.1-1.5); ALKALINE PHOSPHATASE 98 IU/L (46-116); ANION GAP 5 (8-16); ASPARTATE AMINO TRANSFERASE 24 U/L (10-37); BILIRUBIN,TOTAL 0.6 MG/DL (0.1-1.0); BLOOD UREA NITROGEN 58 MG/DL (7-18); BUN/CREATININE RATIO 27.4 (10.0-20.0); CALCIUM 8.3 MG/DL (8.5-10.1); CHLORIDE 109 MMOL/L (99-107); CREATININE 2.12 MG/DL (0.60-1.10); GLUCOSE 149 MG/DL (70-104); MAGNESIUM 2.3 MG/DL (1.5-2.4); POTASSIUM 4.9 MMOL/L (3.5-5.1); SODIUM 142 MMOL/L (135-145); TOTAL PROTEIN 5.7 G/DL (6.4-8.2); VANCOMYCIN,TROUGH 7.3 ug/mL (10.0-20.0); eCRCL 22 ML/MIN; eGFR 30 ML/MIN
[2024-07-07 05:25] LABS: NUCLEATED RED BLOOD CELLS 7 /100WBC (0-0); TOTAL CELLS COUNTED 100
[2024-07-07 05:26] LABS: ANISOCYTOSIS 3+; HYPOCHROMASIA 2+; MICROCYTOSIS 2+; PLATELET ESTIMATE NORMAL; SCHISTOCYTES 2+
[2024-07-07 05:27] LABS: TEAR DROP CELLS FEW
[2024-07-07 05:28] LABS: ACANTHOCYTES 2+; ELLIPTOCYTES FEW; TARGET CELLS FEW
[2024-07-07] MEDS ORDERED: normal saline 1000ml 1,000 ML IV SCH (07:30)
[2024-07-07] MEDS ORDERED: LIDOcaine 2% Viscous 15ml cup ONE ×2 (08:23→11:24)
[2024-07-07 08:35] LABS: PRO BRAIN NATRIURETIC PEPTIDE 11347 PG/ML (0-450)
[2024-07-07] MEDS: methylPREDNISolone sod succ 125mg/2ml vial IV SCH (09:57)
[2024-07-07 10:22] LABS: HEMOGLOBIN 7.6 g/dl (14.0-17.9)
[2024-07-07 10:23] LABS: MEAN PLATELET VOLUME 8.6 FL (7.4-10.4); PLATELET COUNT 252 X10'3 (140-440); RED BLOOD COUNT 3.96 X10'6 (4.70-6.10); RED CELL DISTRIBUTION WIDTH 22.4 % (11.5-14.5); WHITE BLOOD COUNT 6.9 X10'3 (4.5-11.0)
[2024-07-07 10:51] LABS: HEMATOCRIT 24.5 % (42.0-52.0); MEAN CORPUSCULAR VOLUME 64.2 FL (78-98)
[2024-07-07 10:52] LABS: MEAN CORPUSCULAR HEMOGLOBIN 19.9 PG (27.0-31.0)
[2024-07-07] MEDS ORDERED: MIDAZolam 1 MG/ML 5ML VIAL ONE (11:24)
[2024-07-07] MEDS ORDERED: fentaNYL/PF 50MCG/1 ML 2ML syringe ONE (11:24)
[2024-07-07] MEDS ORDERED: simethicone 40mg/0.6ml oral drops 30ml ONE (11:27)
[2024-07-07] MEDS: morphine 2 MG/ML inj. syringe IV PRN (14:47)
--- NOTE | 2024-07-07 15:51 | PROGRESS NOTE- Residence ---
Progress Note - Resident Providers to CC Resident Creating Document: ADYEN PETTY RES CC: ALEXANDRA WU MD ~ Antibiotic Timeout Antibiotic Ordered?: Yes Subjective Patient was examined at bedside. Patient was not have any subjective complaints. No acute overnight events. Patient was seems to be little irritated and would like to go home tomorrow. Objective Vital Signs Date Time Temp Pulse Resp B/P (MAP) Pulse Ox O2 Delivery O2 Flow Rate FiO2 07/07/24 14:47 18 07/07/24 12:15 92 126/53 98 Room Air 07/07/24 12:05 2.0 07/07/24 11:00 97.2 07/06/24 15:49 21 Result Diagram: 07/07/24 1008 07/07/24 0430 General: Alert, awake, oriented,in acute distress HEENT: PERRLA, no icterus, pallor, lymphadenopathy, carotid bruit Respiratory system: Bilateral vesicular breath sounds heard, inspiratory crackles present in bilateral lung pruett (improving) CVS: Irregular heartbeat, S1-S2 heard, no murmurs/rubs/gallop GI: Soft, nontender, no organomegaly, no guarding/rigidity, bowel sounds present Neuro: No focal neurological deficits present Extremities: Erythematous, warm, swollen forearm until lb on the left side, fluctuant heart with irregular borders abscess present (improving) Right leg chronic venous stasis, mid calf bilateral calf tenderness, left leg lymphedema present Skin: Warm and dry Coagulation Studies Laboratory Tests Test 07/04/24 18:14 07/07/24 04:30 D-Dimer 0.55 MG/L FEU (0-0.50) H D-Dimer Comment Prothrombin Time 12.3 SECONDS (9.0-12.0) H INR International Normalized Ratio 1.2 INR Coagulation Comments Assessment Assessment An 88-year-old male with past medical history of CAD s/p CABG, AFib on warfarin, CHF, hypertension, hypothyroidism, DUSTIN, CKD, presented with complaints of worsening left forearm swelling and erythema. He is being admitted into the hospital for the management of left arm cellulitis and CHF exacerbation. Patient was further being evaluated for underlying CAD, possible upper GI bleed. Patient was status post EGD. Plan Plan Left forearm cellulitis secondary to trauma Necrotizing fasciitis and DVT ruled out Sepsis, POA Underlying abscess, ruled out IV Zosyn and vancomycin (day 3/10) Dr. Gomez's recommended conservative management. Appreciate recommendations Limb elevation. Venous ultrasound ruled out DVT. Aspiration bilateral pneumonia Continue antibiotics as per above No steroids in view of GI bleed Incentive spirometry Aspiration precautions Swallow eval Acute exacerbation of CHFrEF, EF: 35-40 % Echo: EF: 40%, RVSP: 53 mmHg. Abnormal septal motion. Inferior segments are hypokinetic and septal segments appear hypokinetic. Mild concentric hypertrophy. ProBNP, up trending Continue IV Lasix 40 mg b.i.d. (increased the dose) GDM T: Lisinopril 10 mg, spironolactone 25 mg, Jardiance 10 mg, metoprolol tartrate 12.5 mg b.i.d. Strict Is&Os Hypokinetic inferior and septal segments seems to be a new finding. Lexiscan: Fixed inferoseptal defect with associated hypokinesis. Awaiting Dr. Mcneal's recommendations Started GDM T and other management as per Dr. Mcneal Type 2 KS Can not exclude underlying CAD Troponins downtrending. Most likely secondary to infection and inflammation Please see above for evaluation and workup Chronic Atrial fibrillation, rate controlled EKG shows AFib with controlled ventricular rate. Continue home metoprolol tartrate 12.5 mg twice daily. Held warfarin in view of supratherapeutic INR in view of risk versus benefits, discussed with the patient Supratherapeutic INR, resolved Warfarin we will continue to be held in view of possible GI bleed Received one dose Vitamin K 10 mg IV INR daily JEANNE on CKD stage III Baseline creatinine: 1.25, EGFR: 31 Elevated creatinine, downtrending Continue monitoring BMP. Microcytic anemia Upper GI bleed secondary to supratherapeutic INR from warfarin H&H stable H and H monitoring q.6h Low iron, ferritin. Started on iron supplementation EGD: Reflux esophagitis with no bleeding, gastritis with hemorrhage, duodenitis with hemorrhage. CAD s/p CABG Hyperlipidemia Continue aspirin 81 mg daily, atorvastatin 40 mg daily. Hypothyroidism TSH: 1.28 Continue home levothyroxine. Code Status: Full code DVT Prophylaxis: SCD Nutrition: Diet as per speech therapist, clear liquids PT: Ordered Disposition: Continue care in PCU unit, monitor INR daily, swallow eval with speech therapy in a.m., probable discharge in a day or two Critical care: 45 minutes Ayden Petty MD Internal Medicine, PGY 1 Date of Service: July 07, 2024 Billing Provider: ALEXANDRA WU MD,AYDEN, RES July 07, 2024 15:51
[2024-07-07 19:36] LABS: HEMATOCRIT 25.2 % (42.0-52.0); HEMOGLOBIN 7.9 g/dl (14.0-17.9); MEAN CORPUSCULAR HEMOGLOBIN 20.1 PG (27.0-31.0); MEAN CORPUSCULAR HGB CONC 31.4 g/dL (33.0-36.5); MEAN PLATELET VOLUME 8.6 FL (7.4-10.4); PLATELET COUNT 270 X10'3 (140-440); RED BLOOD COUNT 3.94 X10'6 (4.70-6.10); RED CELL DISTRIBUTION WIDTH 22.1 % (11.5-14.5); WHITE BLOOD COUNT 6.5 X10'3 (4.5-11.0)
--- NOTE | 2024-07-07 20:00 | CONSULTATION ---
DATE OF CONSULTATION: 07/07/2024 DICTATING PHYSICIAN: Francisco Wolf MD REASON FOR CONSULTATION: Anemia, melena. HISTORY OF PRESENT ILLNESS: The patient is an 88-year-old gentleman with multiple comorbidities including diabetes, CHF, AFib, on warfarin, pneumonia and also cellulitis. Presented with weakness, lethargy and found to have severe anemia. The patient reports some dark stools over the past few days. Denies hematemesis. PHYSICAL EXAMINATION: GENERAL: The patient is alert, awake, in no acute distress. HEENT: Sclerae are anicteric. NECK: Supple. CARDIOVASCULAR: Irregular rate. ABDOMEN: Soft. Obesity. No guarding or rigidity. EXTREMITIES: Positive for edema. IMPRESSION AND PLAN: The patient is an 88-year-old gentleman with multiple comorbidities including CAD, AFib, on warfarin; CHF, chronic kidney disease, presents with cellulitis and CHF exacerbation, found to have severe anemia and ____ therapeutic INR and CHF exacerbation. He also has melena. Given his presentation, EGD is indicated for further evaluation. Meanwhile, would recommend to optimize his cardiopulmonary condition. Watch hemoglobin closely and transfuse if indicated. Put him on a PPI. Avoid NSAIDs. We will plan for EGD. Francisco Wolf MD TID: [id number] RECEIPT: [id number] HL/GINNY/AMA
--- NOTE | 2024-07-07 20:26 | PROGRESS NOTE ---
Progress Note Cardiology Providers to CC ~ Subjective Subjective Patient seen and examined. His left extremity cellulitis is getting better. Patient overall feels better. No chest pain Objective Result Diagram: 07/07/24 1839 07/07/24 0430 Objective General: Normal body habitus, no acute distress, HEENT: Sclerae clear, PERRL, gums without lesions or bleeding, oropharynx clear without erythema or exudate. Neck: Supple without enlargement of the thyroid, or lymphadenopathy, Chest: Normal size and shape, no tenderness, nonlabored breathing, Breath sounds clear to auscultation. Heart: Irregularly irregular, variable S1. Abdomen: Soft, nontender, no organomegaly, bowel sounds present. Extremities: 1+ bilateral swelling. Left upper extremity cellulitis bandaged. Coagulation Studies Diminished bibasilarly. Laboratory Tests Test 07/04/24 18:14 07/07/24 04:30 D-Dimer 0.55 MG/L FEU (0-0.50) H D-Dimer Comment Prothrombin Time 12.3 SECONDS (9.0-12.0) H INR International Normalized Ratio 1.2 INR Coagulation Comments Problem\Assessment\Plan Additional Plan 1. * An 88-year-old male with left upper extremity cellulitis, on antibiotics, Patient has improved. 2. * History of anemia, hemoglobin of 7.6 after one unit of PRBC on 07/05/2024.. Being evaluated for causes of anemia. Continue iron supplementation. Patient had EGD which showed gastritis with some blood. Management per hospitalist and GI specialist. 3. * Systolic heart failure. The patient's ejection fraction has declined compared to 65% back in 03/14/2023 to 40% as of today. Recommend 1500 cc fluid restriction, low-salt diet to optimize GDMT therapy. The patient currently is already on metoprolol and lisinopril. Noted addition of Jardiance. The patient is not a good candidate for spironolactone because of hyperkalemia and CKD. 4. * Chronic atrial fibrillation, rate controlled, Coumadin is on hold because of suspected bleeding. Coumadin can be resumed when reasonable workup completed for Unexplained anemia. 5. * Diabetes, hypertension, hyperlipidemia. Extensively counseled on coronary risk factor modification to keep LDL less than 55 mg per mmHg and hemoglobin less than 7%. 6. * Peripheral vascular disease with lower extremity revascularization [place] [address] Gomez in [facility]. 7. * Sick sinus syndrome. Continue to monitor on telemetry. Other comorbidities include obesity, anemia, hypothyroidism, history of sleep apnea, the patient is on CPAP since 2018. * Prior history of smoking. 8. * History of pleural effusion; back in 2018, had a moderate left pleural effusion with a 3 x 2 cm round lesion with minimal FDG uptake CKD with a BUN of 58 and creatinine of 2.12. DARIN ALAMO MD July 07, 2024 20:26
[2024-07-07] MEDS: pantoprazole 40 MG vial IV SCH (20:28)
[2024-07-07] MEDS: furosemide 40mg/4ml inj IV SCH (20:28)
[2024-07-07] MEDS ORDERED: warfarin 1mg tablet PO ONE (21:00)
[2024-07-08 02:00] VITALS: BP 132/49; PULSE 79; RESP 17; TEMP 97.4; O2SAT 95
[2024-07-08] MEDS: VANCOMYCIN LEVEL IV ONE (03:48)
[2024-07-08 04:14] LABS: INR 1.2 INR; PROTHROMBIN TIME 12.2 SECONDS (9.0-12.0)
[2024-07-08 04:17] LABS: ALANINE AMINOTRANSFERASE 18 U/L (12-78); ALBUMIN 2.2 G/DL (3.4-5.0); ALBUMIN/GLOBULIN RATIO 0.6 (1.1-1.5); ALKALINE PHOSPHATASE 94 IU/L (46-116); ANION GAP 6 (8-16); ASPARTATE AMINO TRANSFERASE 20 U/L (10-37); BILIRUBIN,TOTAL 0.8 MG/DL (0.1-1.0); BLOOD UREA NITROGEN 59 MG/DL (7-18); BUN/CREATININE RATIO 27.4 (10.0-20.0); CALCIUM 8.4 MG/DL (8.5-10.1); CHLORIDE 106 MMOL/L (99-107); CREATININE 2.15 MG/DL (0.60-1.10); GLUCOSE 125 MG/DL (70-104); POTASSIUM 4.4 MMOL/L (3.5-5.1); SODIUM 141 MMOL/L (135-145); TOTAL CARBON DIOXIDE 28.7 MMOL/L (24-32); TOTAL PROTEIN 5.9 G/DL (6.4-8.2); eCRCL 21 ML/MIN; eGFR 29 ML/MIN
[2024-07-08 04:18] LABS: MAGNESIUM 2.2 MG/DL (1.5-2.4); VANCOMYCIN,TROUGH 11.4 ug/mL (10.0-20.0)
[2024-07-08 05:00] LABS: EOSINOPHILS % (AUTO) 0 % (0-6); HEMOGLOBIN 7.7 g/dl (14.0-17.9)
[2024-07-08 05:02] LABS: MEAN CORPUSCULAR HEMOGLOBIN 19.7 PG (27.0-31.0); MEAN CORPUSCULAR HGB CONC 29.8 g/dL (33.0-36.5); MEAN PLATELET VOLUME 8.5 FL (7.4-10.4); PLATELET COUNT 221 X10'3 (140-440); RED BLOOD COUNT 3.93 X10'6 (4.70-6.10); RED CELL DISTRIBUTION WIDTH 22.7 % (11.5-14.5); WHITE BLOOD COUNT 7.1 X10'3 (4.5-11.0)
[2024-07-08 05:18] LABS: BASOPHILS % (AUTO) 0.4 % (0-1); LYMPHOCYTES % (AUTO) 5.3 % (21-51); MONOCYTES % (AUTO) 10.1 % (2-12); NEUTROPHILS % (AUTO) 84.2 % (42-75)
[2024-07-08 05:19] LABS: LYMPHOCYTES # (AUTO) 0.4 X10'3 (1.1-4.8); MONOCYTES # (AUTO) 0.7 X10'3 (0-0.9)
[2024-07-08 06:00] VITALS: BP 124/49; PULSE 70; RESP 18; TEMP 98.7; O2SAT 93
[2024-07-08 08:30] VITALS: RESP 16; O2SAT 93
[2024-07-08] MEDS: ferrous sulfate 325mg tablet PO SCH (08:49)
[2024-07-08 11:00] VITALS: BP 138/78; PULSE 97; RESP 16; TEMP 97.3; O2SAT 99
[2024-07-08] MEDS ORDERED: LACT1CAP26 PO (11:09)
[2024-07-08] MEDS ORDERED: FER325T PO (11:09)
[2024-07-08] MEDS ORDERED: DOXY-243 PO (11:09)
[2024-07-08] MEDS ORDERED: LISI10TA27 PO (11:09)
[2024-07-08] MEDS ORDERED: AMOX-580 PO (11:09)
[2024-07-08] MEDS ORDERED: ALBU8HFA PO (11:12)
[2024-07-08 12:18] LABS: HEMATOCRIT 28.1 % (42.0-52.0); MEAN CORPUSCULAR HGB CONC 28.4 g/dL (33.0-36.5); MEAN CORPUSCULAR VOLUME 66.8 FL (78-98); MEAN PLATELET VOLUME 8.8 FL (7.4-10.4); PLATELET COUNT 230 X10'3 (140-440); RED BLOOD COUNT 4.21 X10'6 (4.70-6.10); RED CELL DISTRIBUTION WIDTH 22.9 % (11.5-14.5); WHITE BLOOD COUNT 7.6 X10'3 (4.5-11.0)
--- NOTE | 2024-07-08 14:09 | DISCHARGE SUMMARY-Residence ---
Discharge Summary Providers to CC Resident Creating Document: AYDEN DIAL, RES CC: ALEXANDRA WU MD ~ Discharge Summary Assessment An 88-year-old male with past medical history of CAD s/p CABG, AFib on warfarin, CHF, hypertension, hypothyroidism, DUSTIN, CKD, presented with complaints of worsening left forearm swelling and erythema. He is being admitted into the hospital for the management of left arm cellulitis and CHF exacerbation. Patient was further being evaluated for underlying CAD, possible upper GI bleed. Patient was status post EGD. Admission Diagnosis: CHF exacerbation, left arm cellulitis, NSTEMI Hospital Course DATE OF ADMISSION: 07/04/24 DATE OF DISCHARGE: 07/08/24 Discharge Diagnosis\Comment: Left forearm cellulitis secondary to home Sepsis, POA Aspiration bilateral pneumonia Acute exacerbation heart failure with reduced ejection fraction, cor pulmonale Type 2 TN Sick sinus syndrome Supratherapeutic INR JEANNE on CKD stage 3 Microcytic anemia Upper GI bleed secondary to supratherapeutic INR from warfarin CAD status post CABG Hyperlipidemia Hypothyroidism Operations\Procedures: Lexiscan EGD Consultants: Dr. Wolf (piece presser) Dr. Mcneal (bariatric surgeon) Dr. Gomez (surgeon) Complications: None Condition on DC: Stable New Medications: albuterol inhaler (Pro-Air Inhaler) 8.5 Gm Inhaler 1-2 PUFFS PO Q4H PRN for shortness of breath, #1 INH Amox Tr/Potassium Clavulanate 875/125 MG (Augmentin 875/125 MG) 875 Mg-125 Mg Ta blet 1 TAB PO BID for 7 Days, #14 TAB Doxycycline Hyclate (Doxycycline Hyclate) 100 Mg Tablet.dr 100 MG PO BID for 7 Days, #14 TAB Lactobacillus Rhamnosus (Culturelle) 10 Billion Cell Capsule 1 CAP PO DAILY for 30 for 30 Days, #60 CAP 0 Refills Ferrous Sulfate (Ferrous Sulfate) 325 Mg (65 Mg Iron) Tablet 325 MG PO DAILY for 30 Days, #30 TAB Lisinopril (Lisinopril) 10 Mg Tablet 10 MG PO DAILY for 30 Days, #30 TAB Continued Medications: Aspirin (Aspirin) 81 Mg Tab.chew 1 TAB PO DAILY for 30 Days, #30 TAB Atorvastatin Calcium* (Lipitor*) 40 Mg Tablet 1 TAB PO DAILY for 30 Days, #30 TAB 1 Refill Furosemide (Lasix) 40 Mg Tablet 1 TAB PO DAILY for 30 Days, #30 TAB 0 Refills Levothyroxine Sodium (Synthroid) 125 Mcg Tablet 1 TAB PO DAILY for 30 Days, #30 TAB Metoprolol Tartrate (Lopressor tablet) 25 Mg Tablet 0.5 TAB PO Q12H for 30 Days, #60 TAB Hold for SBP below 100mm Hg Hold for Heart Rate below 60. Multivitamin W/Iron, Minerals (Multivitamins with Iron) 1 Each Tab.chew 1 TAB PO DAILY for 30 Days, #30 TAB 0 Refills Nitroglycerin SL* (Nitrostat SL*) 0.4 Mg Tablet 1 TAB SL Q5MIN PRN for Chest pain Q5min PRNx3-call MD, #25 TAB Discontinued Medications: Lisinopril* (Lisinopril*) 40 Mg Tablet 2 TAB PO DAILY, TAB Tramadol Hcl/Acetaminophen* (Ultracet*) 1 Each Tablet 2 TAB PO Q6H PRN for pain, TAB Warfarin Sodium (Warfarin Sodium) 5 Mg Tablet 2.5 MG PO SuTuWeFrSa for 30 Days, #30 TAB 2.5MG DAILY EXCEPT ON GIVE 5MG Warfarin Sodium (Warfarin Sodium) 5 Mg Tablet 1 TAB PO MTH for 30 Days, #30 TAB Discharge Summary: An 88-year-old male with multiple medical comorbidities presented to the ED with left forearm swelling, erythema, pain, pus drainage. Patient also had labor atory values indicating elevated WBC, procalcitonin, elevated troponins that gradually started to downtrend. Patient's vitals were also indicating towards sepsis. Patient was adequately treated with antibiotics. Dr. Gomez (surgeon was consulted in view of a possible abscess on CT imaging. Further ultrasound ruled out abscess therefore patient was conservatively managed as per Dr. Gomez's recommendations. Furthermore patient was found to have bilateral aspiration pneumonia which was treated with antibiotics and steroids were not use in view of GI bleed. At the time of admission patient had hemoglobin level less than seven and an INR which was greater than 3.5. For warfarin was held, 1 unit transfusion was done. Further evaluation about low hemoglobin was done which revealed bleeding gastritis and duodenitis on EGD. Therefore patient's warfarin is held at the time of discharge and is recommended to follow up with bariatric surgeon for the restart of warfarin when appropriate. Patient had an echo which revealed hypokinesis leading us to perform a Lexiscan which revealed fixed defects. Therefore patient was conservatively managed. Patient also had acute exacerbation of heart failure at the time of presentation therefore his medications were optimized and Lasix was given we will observing for renal function. Patient's all other medical conditions were managed as per home meds. Patient is hemodynamically stable at the time of discharge Physical examination at discharge: General: Alert, awake, oriented,in acute distress HEENT: PERRLA, no icterus, pallor, lymphadenopathy, carotid bruit Respiratory system: Bilateral vesicular breath sounds heard, inspiratory crackles present in bilateral lung pruett (improving) CVS: Irregular heartbeat, S1-S2 heard, no murmurs/rubs/gallop GI: Soft, nontender, no organomegaly, no guarding/rigidity, bowel sounds present Neuro: No focal neurological deficits present Extremities: Erythematous, warm, swollen forearm until lb on the left side, fluctuant heart with irregular borders abscess present (improving) Right leg chronic venous stasis, mid calf bilateral calf tenderness, left leg lymphedema present Skin: Warm and dry Labs at discharge: WBC: 7.6, H/H: 8/28.1, platelet count: 230 Sodium: 141, potassium: 4.4, BUN: 59, creatinine: 2.15 Imaging: Cardiac imaging NM: Fixed inferoseptal defect with associated hypokinesis. Soft tissue ultrasound: No definite sonographic abnormality is identified in the soft tissues of the [facility] Upper extremity CT:ll-defined fluid collections within the anterior upper left arm extending to the antecubital fossa as well as within the left lateral thoracic wall soft tissues as discussed above with relatively poor organization and delineation to suggest abscess formation, however, infectious phlegmonous pathology is not excluded. Echo: Abnormal septal motion. Inferior segments are hypokinetic and septal segments appear hypokinetic. Mild concentric hypertrophy. There is moderate LV systolic dysfunction present. Overall estimated ejection fraction is about 40%. Vascular ultrasound: No right or left femoropopliteal venous thrombosis. Bilateral greater saphenous veins and left peroneal vein are suboptimally visualized. Forearm x-ray:No evidence of acute osseous abnormality. Elbow x-ray:No evidence of acute osseous abnormality. Chest x-ray:Moderate right pleural effusion with adjacent atelectasis. Small left pleural fluid. Discharge medications can be found above patient is discharged home with the following recommendations: Follow up with wound care clinic appt - Appointment 07/09/24 at 7:30am Follow up with Nephrology outpatient Follow up with PCP within 2 weeks of discharge Cardiology outpatient follow up in view of restarting warfarin Use incentive spirometry and flutter valve to help healing your lungs We gave you antibiotics for your forearm wound for another seven days and follow up with your wound care appointment Return to ER in view of chest pain, worsening of forearm redness pain, fever, dizziness *Problems/Diagnosis: (1) Atrial fibrillation Status: Acute (2) Cellulitis Status: Acute (3) Chronic atrial fibrillation Status: Chronic (4) CAD (coronary artery disease) Status: Chronic Total Time Spent on D/C: > 30 Minutes Date of Service: July 08, 2024 Billing Provider: ALEXANDRA WU MD Problem Qualifiers (1) Cellulitis: Site of cellulitis: extremity Site of cellulitis of extremity: upper extremity Laterality: left Qualified Codes: L03.114 - Cellulitis of left upper limb AYDEN DIAL, RES July 08, 2024 14:08
--- NOTE | 2024-07-08 17:00 | PROGRESS NOTE ---
Progress Note Cardiology Providers to CC ~ Subjective Subjective Patient seen and examined this morning. Patient being discharged today. Objective Result Diagram: 07/08/24 1154 07/08/24 0335 Objective General: Normal body habitus, no acute distress, HEENT: Sclerae clear, PERRL, gums without lesions or bleeding, oropharynx clear without erythema or exudate. Neck: Supple without enlargement of the thyroid, or lymphadenopathy, Chest: Normal size and shape, no tenderness, nonlabored breathing, Breath sounds diminished bibasilarly Heart: Irregularly irregular variable S1. Abdomen: Soft, nontender, no organomegaly, bowel sounds present. Extremities: Left upper extremity cellulitis improved. Coagulation Studies Laboratory Tests Test 07/04/24 18:14 07/08/24 03:35 D-Dimer 0.55 MG/L FEU (0-0.50) H D-Dimer Comment Prothrombin Time 12.2 SECONDS (9.0-12.0) H INR International Normalized Ratio 1.2 INR Coagulation Comments Problem\Assessment\Plan Additional Plan 1. * An 88-year-old male with left upper extremity cellulitis, on antibiotics, Patient has improved. 2. * History of anemia, hemoglobin of 7.6 after one unit of PRBC on 07/05/2024.. Hemoglobin on 07/08/2024 is eight. Being evaluated for causes of anemia. Continue iron supplementation. Patient had EGD which showed gastritis with some blood. Management per hospitalist and GI specialist. 3. * Systolic heart failure. The patient's ejection fraction has declined compared to 65% back in 03/14/2023 to 40% as of today. Recommend 1500 cc fluid restriction, low-salt diet to optimize GDMT therapy. The patient currently is already on metoprolol and lisinopril. Noted addition of Jardiance. The patient is not a good candidate for spironolactone because of hyperkalemia and CKD. 4. * Chronic atrial fibrillation, rate controlled, Coumadin is on hold because of suspected bleeding. Coumadin can be resumed when reasonable workup completed for Unexplained anemia when it is okay with manager site.. 5. * Diabetes, hypertension, hyperlipidemia. Extensively counseled on coronary risk factor modification to keep LDL less than 55 mg per mmHg and hemoglobin less than 7%. 6. * Peripheral vascular disease with lower extremity revascularization in [address] Gomez in [facility]. 7. * Sick sinus syndrome. Continue to monitor on telemetry. Other comorbidities include obesity, anemia, hypothyroidism, history of sleep apnea, the patient is on CPAP since 2018. * Prior history of smoking. 8. * History of pleural effusion; back in 2018, had a moderate left pleural effusion with a 3 x 2 cm round lesion with minimal FDG uptake CKD with a BUN of 59 and creatinine of 2.15 on 07/08/2024. DARIN ALAMO MD July 08, 2024 17:00
--- NOTE | 2024-07-08 19:08 | PATHOLOGY REPORT ---
[facility] [address] [place] [address] SURGICAL PATHOLOGY REPORT CaseNumber: [id number] Surgeon:Francisco Wolf M.D. CLINICAL INFORMATION CLINICAL INFORMATION: Acute post hemorrhagic anemia and melena. Rule out H. pylori. DIAGNOSIS DIAGNOSIS: STOMACH, ANTRUM; BIOPSY - MILD CHRONIC GASTRITIS. - NEGATIVE FOR HELICOBACTER PYLORI. MICROSCOPIC DESCRIPTION MICROSCOPIC DESCRIPTION: A single slide of the gastric antral biopsy is reviewed. Present is mild chr onic gastritis. The mucosa is intact without erosion or ulceration. There is no increased number of intraepithelial lymphocytes or neutrophils. The lamina propria is expanded by a slight increased content of fibrous tissue which distorts the glandular architecture to a slight extent. There is no m alignancy. An immunoperoxidase stain was performed. The antibody utilized was to H. pylori. No s tainable organisms are identified. (st) GROSS DESCRIPTION GROSS DESCRIPTION: Received in a container of formalin labeled with the patient's name, number, and " antrum BX" is a 0.2 cm piece of baer tissue. The specimen is entirely submitted as A1. The time at [facility] the specimen was removed was 1034. The time at which the specimen was placed in formalin was 1035. Electronically signed by: Marco Martines M.D. 07/08/2024 6:30:00 PM
[2024-07-09] MEDS ORDERED: vancomycin/NS 1 GM ADD-VANTAGE 250 ML IV SCH (04:00)
[2024-07-12] MEDS ORDERED: VANCOMYCIN LEVEL IV ONE (03:30)
== END 2024-07-08 15:26 | disposition home health service (06) | DRG 871 ==
LOC: ER 17:32 → ED HOLD 21:38 → PCU 3S 07-05 01:00
PROVIDERS: ADMIT Internal Medicine; ATTEND Family Medicine
PROC: 30233N1 Transfusion of Nonautologous Red Blood Cells into Peripheral Vein, Percutaneous Approach (ICD-10-PCS; 2024-07-05)
PROC: 4A02XM4 Measurement of Cardiac Total Activity, External Approach (ICD-10-PCS; 2024-07-06)
PROC: 3E033HZ Introduction of Radioactive Substance into Peripheral Vein, Percutaneous Approach (ICD-10-PCS; 2024-07-06)
PROC: 0DB68ZX Excision of Stomach, Via Natural or Artificial Opening Endoscopic, Diagnostic (ICD-10-PCS; principal; 2024-07-07)
PROC: 0DB78ZX Excision of Stomach, Pylorus, Via Natural or Artificial Opening Endoscopic, Diagnostic (ICD-10-PCS; 2024-07-07)
DX: A41.9 Sepsis, unspecified organism (principal); I21.A1 Myocardial infarction type 2; J69.0 Pneumonitis due to inhalation of food and vomit; I50.23 Acute on chronic systolic (congestive) heart failure; K29.71 Gastritis, unspecified, with bleeding; K29.81 Duodenitis with bleeding; K25.4 Chronic or unspecified gastric ulcer with hemorrhage; L03.114 Cellulitis of left upper limb; I48.20 Chronic atrial fibrillation, unspecified; I13.0 Hypertensive heart and chronic kidney disease with heart failure and stage 1 through stage 4 chronic kidney disease, or unspecified chronic kidney disease; I50.32 Chronic diastolic (congestive) heart failure; D62 Acute posthemorrhagic anemia; N17.9 Acute kidney failure, unspecified; D68.32 Hemorrhagic disorder due to extrinsic circulating anticoagulants; Z20.822 Contact with and (suspected) exposure to COVID-19; S59.812A Other specified injuries left forearm, initial encounter; D63.8 Anemia in other chronic diseases classified elsewhere; E11.51 Type 2 diabetes mellitus with diabetic peripheral angiopathy without gangrene; E03.9 Hypothyroidism, unspecified; E78.5 Hyperlipidemia, unspecified; E11.22 Type 2 diabetes mellitus with diabetic chronic kidney disease; I27.81 Cor pulmonale (chronic); E87.5 Hyperkalemia; G47.33 Obstructive sleep apnea (adult) (pediatric); I49.5 Sick sinus syndrome; D50.8 Other iron deficiency anemias; I07.1 Rheumatic tricuspid insufficiency; K21.00 Gastro-esophageal reflux disease with esophagitis, without bleeding; K44.9 Diaphragmatic hernia without obstruction or gangrene; N18.30 Chronic kidney disease, stage 3 unspecified; I25.10 Atherosclerotic heart disease of native coronary artery without angina pectoris; X58.XXXA Exposure to other specified factors, initial encounter; Y93.89 Activity, other specified; Y92.89 Other specified places as the place of occurrence of the external cause; Y99.8 Other external cause status; Z79.82 Long term (current) use of aspirin; Z79.899 Other long term (current) drug therapy; Z95.1 Presence of aortocoronary bypass graft; Z90.49 Acquired absence of other specified parts of digestive tract; Z87.891 Personal history of nicotine dependence; Z79.01 Long term (current) use of anticoagulants; T45.515A Adverse effect of anticoagulants, initial encounter
CPT/HCPCS: 36415; 36430; 43239; 71046; 73080; 73090; 73200; 76882; 78452; 80048; 80053; 80061; 80202; 81001; 82550; 82565; 82728; 83036; 83540; 83550; 83605; 83735; 83880; 84100; 84132; 84145; 84443; 84484; 85007; 85008; 85025; 85027; 85379; 85610; 85651; 86140; 86885; 86900; 86901; 86920; 87040; 87070; 87081; 87088; 87811; 92508; 92616; 93005; 93017; 93306; 93970; 94760; 96365; 96375; 97116; 97161; 99152; 99291; A4620; A6213; A6253; A6258; A6446; A6449; A6590; A9500; G0378; J0690; J0696; J1940; J2250; J2270; J2470; J2543; J2785; J2919; J3010; J3370; J3430; J3490; J7030; J7040; J7050; P9016

== ENCOUNTER 2024-07-10 14:36 | Emergency (ER) | payer MEDICARE, OTHER ==
[~2024-07-10] VITALS: Ht 175.3 cm; Wt 99.8 kg
[~2024-07-10 14:36] MED LIST changes: +ALBU8HFA PO; +AMOX-580 PO; +ASPI-1265 PO; -DIGO125T PO; +DOXY-243 PO; +FER325T PO; -GUAI600T45 PO; +LACT1CAP26 PO; +LISI10TA27 PO; -LISI40TA13 PO; -TRAM-528 PO; -WARF-55 PO
[2024-07-10 20:09] LABS: BILIRUBIN,URINE NEGATIVE (Neg); CLARITY,URINE CLEAR (Clear); COLOR,URINE YELLOW (Yellow); GLUCOSE, URINE NEGATIVE (Neg); KETONES,URINE NEGATIVE (Neg); LEUKOCYTE ESTERASE ,URINE NEGATIVE (Neg); NITRITES, URINE NEGATIVE (Neg); OCCULT BLOOD,URINE TRACE-INTACT (Neg); PROTEIN,URINE TRACE mg/dl (Neg)
[2024-07-10 20:11] LABS: UA COLLECTION TYPE NON-SPECIFIED
[2024-07-10 20:22] LABS: ALBUMIN 2.4 G/DL (3.4-5.0); ANION GAP 8 (8-16); BLOOD UREA NITROGEN 49 MG/DL (7-18); BUN/CREATININE RATIO 27.7 (10.0-20.0); CALCIUM 8.2 MG/DL (8.5-10.1); CHLORIDE 107 MMOL/L (99-107); CREATININE 1.77 MG/DL (0.60-1.10); GLUCOSE 96 MG/DL (70-104); SODIUM 144 MMOL/L (135-145); TOTAL CARBON DIOXIDE 29.2 MMOL/L (24-32); eCRCL 30 ML/MIN; eGFR 37 ML/MIN
[2024-07-10 20:25] LABS: BACTERIA,URINE NONE SEEN /HPF (Neg); WBC,URINE NONE SEEN /HPF (0-4)
[2024-07-10 20:26] LABS: RBC,URINE 0-2 /HPF (0-2); SQUAMOUS EPITHELIAL CELL,UR FEW /LPF (FEW)
[2024-07-10 20:31] LABS: BASOPHILS % (AUTO) 0.2 % (0-1); EOSINOPHILS # (AUTO) 0.1 X10'3 (0-0.9); HEMATOCRIT 26.8 % (42.0-52.0); LYMPHOCYTES # (AUTO) 0.6 X10'3 (1.1-4.8); MEAN CORPUSCULAR HEMOGLOBIN 19.4 PG (27.0-31.0); MEAN PLATELET VOLUME 8.3 FL (7.4-10.4); MONOCYTES # (AUTO) 0.7 X10'3 (0-0.9)
[2024-07-10 20:33] LABS: EOSINOPHILS % (AUTO) 0.9 % (0-6); HEMOGLOBIN 7.9 g/dl (14.0-17.9); LYMPHOCYTES % (AUTO) 8.1 % (21-51); MEAN CORPUSCULAR HGB CONC 29.6 g/dL (33.0-36.5); MEAN CORPUSCULAR VOLUME 65.3 FL (78-98); MONOCYTES % (AUTO) 9.1 % (2-12); NEUTROPHILS # (AUTO) 6.4 X10'3 (1.8-7.7); NEUTROPHILS % (AUTO) 81.7 % (42-75); PLATELET COUNT 210 X10'3 (140-440); RED CELL DISTRIBUTION WIDTH 23.2 % (11.5-14.5); WHITE BLOOD COUNT 7.8 X10'3 (4.5-11.0)
[2024-07-10 20:38] LABS: ALANINE AMINOTRANSFERASE 18 U/L (12-78); ALBUMIN/GLOBULIN RATIO 0.7 (1.1-1.5); ALKALINE PHOSPHATASE 84 IU/L (46-116); ASPARTATE AMINO TRANSFERASE 19 U/L (10-37); BILIRUBIN,TOTAL 1.1 MG/DL (0.1-1.0)
[2024-07-10 21:28] LABS: ANISOCYTOSIS 3+; MICROCYTOSIS 2+; PLATELET ESTIMATE NORMAL
[2024-07-10 21:30] LABS: HYPOCHROMASIA 1+; TARGET CELLS 1+
[2024-07-10 21:31] LABS: POIKILOCYTOSIS 1+
[2024-07-10 21:32] LABS: ACANTHOCYTES 1+; SCHISTOCYTES 1+
--- NOTE | 2024-07-10 22:22 | Physician Documentation ---
History of Present Illness ~ General Chief Complaint: See Chief Complaint Stated Complaint: HYPERTENSION Time Seen by MD: 19:43 Primary Medical Doctor: Dr. Villafuerte Mode of Arrival: EMS History of Present Illness Initial Comments 88 year old male sent by home health nurse who was concerned that there were two different blood pressures on either arm. Patient is asymptomatic. Denies chest pain, back pain, fevers, N/V/D. Medication Reconciliation Allergies: Coded Allergies: No Known Allergies (Unverified , 03/13/23) Scheduled Amox Tr/Potassium Clavulanate 875/125 MG (Augmentin 875/125 MG), 1 TAB PO BID Aspirin (Aspirin), 1 TAB PO DAILY, (Reported) Atorvastatin Calcium* (Lipitor*), 1 TAB PO DAILY Doxycycline Hyclate (Doxycycline Hyclate), 100 MG PO BID Ferrous Sulfate (Ferrous Sulfate), 325 MG PO DAILY Ferrous Sulfate/Vit C/FA (Folitab 500 Caplet), 1 TAB PO DAILY Furosemide (Lasix), 1 TAB PO DAILY, (Reported) Lactobacillus Rhamnosus (Culturelle), 1 CAP PO DAILY Levothyroxine Sodium (Synthroid), 1 TAB PO DAILY, (Reported) Lisinopril (Lisinopril), 10 MG PO DAILY Metoprolol Tartrate (Lopressor tablet), 0.5 TAB PO Q12H, (Reported) Multivitamin W/Iron, Minerals (Multivitamins with Iron), 1 TAB PO DAILY Scheduled PRN Hydrocodone Bit/Acetaminophen 5/325 MG ([place] 5/325 MG), 1-2 TAB PO Q4-6 hours PRN for pain Nitroglycerin SL* (Nitrostat SL*), 1 TAB SL Q5MIN PRN for Chest pain Q5min PRNx3-call MD, (Reported) albuterol inhaler (Pro-Air Inhaler), 1-2 PUFFS PO Q4H PRN for shortness of breath Discontinued Medications Lisinopril* (Lisinopril*), 2 TAB PO DAILY, (Reported) Tramadol Hcl/Acetaminophen* (Ultracet*), 2 TAB PO Q6H PRN for pain, (Reported) Warfarin Sodium (Warfarin Sodium), 2.5 MG PO SuTuWeFrSa, (Reported) Warfarin Sodium (Warfarin Sodium), 1 TAB PO MTH, (Reported) Past Medical History Past Medical History: Atrial Fibrillation, Coronary Artery Disease, Hypertension, Pneumonia Past Surgical History: other Patient History: (CAD) Coronary arteriosclerosis FATHER, , Age: 79 (DM Type 2) Diabetes mellitus type 2 sister sister brothers2 FH: pneumonia MOTHER, , Age: 94 Alcohol Use: None Drug Use: none Lives with: Spouse Lives In: Home Occupation: retired Review of Systems All Other Systems at this time: Reviewed and Negative Physical Exam Physical Exam Vital Signs: RN Vital Signs have been reviewed: Yes, Temperature: 98.5, Source: Oral, Heart Rate: 110, Respiratory Rate: 16, BP: 129/72, Pulse Oximetry: 96, Weight: 99.800 Oxygen Flow Rate: 0 Physical Exam Gen: no distress HEENT: PERRL, EOMI Pulm: no distress, CTAB Cardiac: RRR, no murmurs Abdomen: s/nt/nd Skin: w/d/i Neuro: nonfocal, alert Psych: appropriate Progress Results/Orders Results/Orders Completed Orders - JOSE GONZALEZ MD Cbc/Diff (07/10/24 19:44) CMP (07/10/24 19:44) Ua W/Microscopic, Cult If Ind (07/10/24 19:55) Vital Signs 07/10/24 07/10/24 07/10/24 07/10/24 14:43 19:40 19:41 19:44 Temp 96.5 98.3 98.3 Pulse 94 86 86 Resp 16 16 16 16 B/P (MAP) 158/54 156/76 (102) 139/68 (91) Pulse Ox 99 95 95 O2 Flow Rate 0 0 07/10/24 07/10/24 07/10/24 21:44 21:46 22:39 Temp 98.5 98.5 Pulse 110 98 Resp 16 16 16 B/P (MAP) 129/72 (91) 127/57 Pulse Ox 96 100 O2 Flow Rate 0 Laboratory Tests Test 07/10/24 19:55 07/10/24 20:00 Urine Specimen Description Non-specified Urine Color Yellow Urine Clarity Clear Urine pH 6.0 Urine Specific [place] 1.015 Urine Protein Trace Urine Glucose (UA) Negative Urine Ketones Negative Urine Occult Blood Trace-intact Urine Nitrite Negative Urine Bilirubin Negative Urine Urobilinogen 1.0 Urine Leukocyte Esterase Negative Urine RBC 0-2 Urine WBC None seen Urine Squamous Epithelial Cells Few Urine Bacteria None seen Urine Culture Indicated Not ind Volume Urine Centrifuged 10 ml Urine Comment White Blood Count 7.8 Red Blood Count 4.10 L Hemoglobin 7.9 L Hematocrit 26.8 L Mean Corpuscular Volume 65.3 L Mean Corpuscular Hemoglobin 19.4 L Mean Corpuscular Hemoglobin Concent 29.6 L Red Cell Distribution Width 23.2 H Platelet Count 210 Mean Platelet Volume 8.3 Neutrophils (%) (Auto) 81.7 H Lymphocytes (%) (Auto) 8.1 L Monocytes (%) (Auto) 9.1 Eosinophils (%) (Auto) 0.9 Basophils (%) (Auto) 0.2 Neutrophils # (Auto) 6.4 Lymphocytes # (Auto) 0.6 L Monocytes # (Auto) 0.7 Eosinophils # (Auto) 0.1 Basophils # (Auto) 0.0 CBC Comment Platelet Estimate Normal Red Blood Cell Morphology Perf Hypochromasia 1+ Poikilocytosis 1+ Basophilic Stippling Anisocytosis 3+ Microcytosis 2+ Target Cells 1+ Acanthocytes 1+ Schistocytes 1+ Sodium Level 144 Potassium Level 4.0 Chloride Level 107 Carbon Dioxide Level 29.2 Anion Gap 8 Blood Urea Nitrogen 49 H Creatinine 1.77 H Estimated GFR/1.73 m2 37 BUN/Creatinine Ratio 27.7 H Glucose Level 96 Calcium Level 8.2 L Total Bilirubin 1.1 H Aspartate Amino Transf (AST/SGOT) 19 Alanine Aminotransferase (ALT/SGPT) 18 Alkaline Phosphatase 84 Total Protein 6.0 L Albumin 2.4 L Globulin 3.6 Albumin/Globulin Ratio 0.7 L Chemistry Comments Medical Decision Making Findings Unremarkable exam in an asymptomatic patient with hypertension. Blood pressure was equal in both arms here today. Discharged with return precautions. Differential Diagnosis Ddx = hypertension, medication noncompliance Departure Disposition: HOME / SELF CARE / HOMELESS Impression: Primary Impression: Hypertension Condition: Stable Discharge Instructions: Basics of Medicine Management Referrals: NO PRIMARY CARE PROVIDER (PCP) Prescriptions Hydrocodone Bit/Acetaminophen 5/325 MG ([place] 5/325 MG) 5 Mg/325 Mg Tablet 1-2 TAB PO Q4-6 hours PRN for pain, #16 TAB Prov: JOSE GONZALEZ MD 07/10/24 Education Educated: Patient Educated regarding: diagnosis, treatment, prognosis, need for follow up Signature Scribe Signature: . Attestation: JOSE VERNON MD July 10, 2024 22:22
[2024-07-10 22:39] VITALS: BP 127/57; PULSE 98; RESP 16; TEMP 98.5; O2SAT 100
[2024-07-10] MEDS ORDERED: HYDR-3965 PO (22:43)
== END 2024-07-10 22:54 | disposition home or self-care (01) ==
LOC: ER 14:37
DX: I10 Essential (primary) hypertension (principal); I25.10 Atherosclerotic heart disease of native coronary artery without angina pectoris; I48.91 Unspecified atrial fibrillation
CPT/HCPCS: 36415; 80053; 81001; 85025; 99284; A4358; A6590; 85008